=== PATIENT | male | born 1935 | race Caucasian/White ===

== ENCOUNTER 2019-03-21 09:24 | Inpatient (IN) | payer MEDICARE, SELFPAY ==
[2019-03-21] VITALS (9 sets, daily range): BP systolic 110–149; BP diastolic 49–76; PULSE 56–76; RESP 18–20; TEMP 36.7–37.4; O2SAT 94–100; BMI 37.0
--- NOTE | ~2019-03-21 | XR_ITS ---
EXAMINATION: XR barium swallow modified DATE: 03/23/2019 09:22 INDICATION: Dysphagia. TECHNIQUE: The patient was given barium-containing material of multiple consistencies to swallow by antonella rodriguez speech pathologist while I performed fluoroscopy. Dose-area product was 1.08 Gy-cm2. 1.4 minutes fluoroscopy time FINDINGS: Oral Stage: Premature spillage into the pharynx Pharyngeal Phase: Laryngeal penetration Aspiration Vallecular and piriform sinus residue Cervical/Esophageal Stage: Within functional limits IMPRESSION: Modified esophagram findings as above. Please refer to the [facility]. Reviewed, dictated and finalized at [facility]. Reviewed, dictated and finalized at location A. K OUT CASHIER IMPRESSION: Modified esophagram findings as above. Please refer to the speech t herapy report for specific recommendations.
--- NOTE | ~2019-03-21 | XR_ITS ---
EXAMINATION: XR fl Dobhoff insert/rad w img DATE: 03/24/2019 12:53 INDICATION: Dysphagia TECHNIQUE: A Dobbhoff type feeding tube was advanced into the duodenum utilizing intermittent fluoroscopy. Final image demonstrates the feeding tube in position with the weighted tip at junction of the second/thir d portions of the duodenum. The tube was flushed with 10 mL sterile saline and fixed to the nares wit h adhesive tape. A single fluoroscopic image was recorded. Fluoroscopy exposure time was 3.9 minutes. The DAP for this procedure was 18.607 Gycm2. There were no immediate complications. FINDINGS/IMPRESSION: Successful fluoroscopy-guided Dobbhoff feeding tube placement with distal tip in the duodenum. Reviewed, dictated and finalized at location A. RVISOR ASBESTOS REMOVAL
--- NOTE | ~2019-03-21 | XR_ITS ---
EXAMINATION: XR barium swallow modified DATE: 03/27/2019 13:28 INDICATION: Dysphagia. TECHNIQUE: The patient was given barium-containing material of multiple consistencies to swallow by t michael speech pathologist while I performed fluoroscopy. Fluoroscopy exposure time was 1.4 minutes. The n umber of fluoroscopy images saved to the PACS was 1. Dose-area product was 1.022 Gy-cm^2. FINDINGS: There was laryngeal penetration and aspiration. IMPRESSION: 1. Laryngeal penetration and aspiration. 2. Please refer to the speech therapy report for recommendations. Reviewed, dictated and finalized at location A. ICATION INTEGRATOR
--- NOTE | ~2019-03-21 | XR_ITS ---
XR chest 1V portable DATE: 03/22/2019 05:45 INDICATION: Cough. Hypoxia. TECHNIQUE: Portable AP chest on 03/22/2019 at 0527 hours COMPARISON: 03/21/2019 AP and lateral chest FINDINGS: Status post sternotomy. Heart size is normal. There is aortic calcification and mild unfold ing. There are bilateral pleural calcifications, especially prominent on the right. There is prominence of the minor fissure and pulmonary vasculature and pulmonary interstitium and int erval probably central and lower lung zone infiltrates since 03/21/2019, suggesting congestive changes . No pleural effusion or pneumothorax is evident. There is chronic right apical capping. Diffuse idiopathic skeletal hyperostosis of the thoracic spine. Degenerative changes are noted the ac romioclavicular and glenohumeral joints. IMPRESSION: Congestive changes, new since 03/21/2019 Reviewed, dictated and finalized at location A. LE END CHUCKING MACHINE OPERATOR
--- NOTE | ~2019-03-21 | XR_ITS ---
EXAMINATION: XR chest 2V DATE: 03/21/2019 09:55 INDICATION: Fever and cough TECHNIQUE: AP and lateral views of the chest are obtained. COMPARISON: 04/09/2018 FINDINGS: The lungs are free of acute opacities. There are chronic opacities of the right lung base a nd chronic pleural plaquing. There is no pleural effusion or pneumothorax. The cardiomediastinal silh ouette is normal. Median sternotomy wires and mediastinal surgical clips are seen, likely from prior coronary artery bypass grafting. IMPRESSION: 1. No acute cardiopulmonary abnormality. 2. Bilateral pleural plaques which may reflect prior asbestos exposure. Reviewed, dictated and finalized at location A. MIXER
--- NOTE | ~2019-03-21 | XR_ITS ---
XR chest 2V DATE: 03/23/2019 09:20 INDICATION: Hypoxia. Pneumonia. Aspiration. TECHNIQUE: AP and lateral views COMPARISON: 03/22/2019 portable upright AP chest FINDINGS: There are bilateral patchy infiltrates involving the mid and lower lung zones bilaterally, consistent with bilateral pneumonia and/or aspiration. Pulmonary vascularity appears within normal ra nge. No pleural effusion is evident. Heart size appears normal. Prominent pleural calcified plaques are noted. Status post sternotomy. IMPRESSION: Bilateral pulmonary infiltrates, increased since 03/22/2019 Reviewed, dictated and finalized at location A. GRADER
--- NOTE | 2019-03-21 09:32 | ECG_ITS ---
Measurements Intervals [place] Rate: 60 P: 40 MT: 292 QRS: -58 QRSD: 146 T: 22 QT: 413 QTc: 415 Interpretive Statements SINUS RHYTHM WITH FIRST DEGREE AV BLOCK INTRAVENTRICULAR CONDUCTION DELAY BORDERLINE R WAVE PROGRESSION, ANTERIOR LEADS ABNORMAL ECG Electronically Signed On 03-21-2019 11:08:14 GRAPHIC DESIGN INTERN by Jorge Bright D.O.
[2019-03-21 09:52] LABS: Basophils Percent Auto 0.2 % (0.2-1.2); Eosinophils Percent Auto 0.3 % (0-4.4); Hematocrit 37.1 % (42.0-52.0); Hemoglobin 11.7 g/dL (14.0-18.0); Immature Granulocyte Absolute 0.03 K/mm3 (0.00-0.031); Immature Granulocyte Percent A 0.3 % (0-0.5); Lymphocytes Absolute Auto 0.29 K/mm3 (0.9-3.2); Lymphocytes Percent Auto 2.6 % (18.3-44.2); Mean Corpuscular HGB Conc 31.5 g/dl (32-36); Mean Corpuscular Hemoglobin 31.3 pg (26-34); Mean Corpuscular Volume 99.2 fl (80-100); Mean Platelet Volume 12.3 fl (7.4-10.4); Monocytes Absolute Auto 0.7 K/mm3 (0.1-0.6); Monocytes Percent Auto 6.2 % (2.6-8.5); Neutrophils Absolute Auto 10.3 K/mm3 (1.3-6.7); Neutrophils Percent Auto 90.4 % (45.5-73.1); Platelet Count Result 106 k/mm3 (150-375); Red Blood Count 3.74 M/mm3 (4.6-6.20); Red Cell Distribution Width 13.5 % (11.5-14.5); White Blood Count 11.4 K/mm3 (4.5-10.0)
[2019-03-21 10:03] LABS: INR 1.2; Prothrombin Time 14.9 Seconds (11.1-14.7)
[2019-03-21 10:04] LABS: Partial Thromboplastin Time 32.6 SECONDS (22.3-36.8)
[2019-03-21 10:06] LABS: Lactic Acid Reflex 3.1 mmol/L (0.7-2.1)
[2019-03-21 10:07] LABS: Alanine Aminotransferase 18 U/L (4-50); Albumin Level 3.6 g/dL (3.5-5.1); Alkaline Phosphatase 85 U/L (38-126); Aspartate Amino Transferase 20 U/L (17-59); Bilirubin,Total 0.7 mg/dL (0.2-1.3); Blood Urea Nitrogen 22 mg/dL (9-20); CRP 7.7 mg/dL (<1.0); Calcium 8.7 mg/dL (8.4-10.2); Carbon Dioxide 25 mmol/L (22-30); Chloride 97 mmol/L (98-107); Estimated CRCL calculation 44 ml/min; Estimated Glomerular Filt Rate 53; Glucose 153 mg/dL (75-110); Potassium 4.5 mmol/L (3.4-5.0); Sodium 133 mmol/L (137-145)
[2019-03-21] MEDS: SODIUM CHLORIDE 0.9% IV 1,000 ML 999 ML IV CONT (10:25)
[2019-03-21 10:55] LABS: Add Urine Microscopic? YES; Appearance Urine Cloudy (Clear); Bacteria Urine 4+ /hpf; Bilirubin Urine Negative (Negative); Blood Urine 1+ (Negative); Color Urine Yellow (Yellow); Glucose Urine UA Negative (Negative); Ketones Urine Negative (Negative); Leukocyte Esterase Ur 2+ LEU/UL (Negative); Mucus Urine Rare /lpf; Nitrate Urine Negative (Negative); Protein Urine 2+ mg/dL (Negative); RBC Urine 0-2 /hpf (0-2); Specific Grav Ur 1.023 (1.001-1.035); Squamous Epithelial Cell Urine Rare /hpf (Few); Urobilinogen Urine Negative mg/dL (<2.0); WBC Urine 51-75 /hpf
--- NOTE | 2019-03-21 11:04 | WPDEDEXPGENP ---
HPI - General Ped General Chief complaint: Fever Stated complaint: fever, weakness Time Seen by Provider: 03/21/19 09:31 Source: patient Mode of arrival: ambulatory Limitations: no limitations Nursing Documentation: reviewed/agree History of Present Illness HPI narrative: Patient is an 83-year-old male who presents to emergency department for evaluation of generalized weakness with fever that began yesterday patient has had runny nose and cough per family which is productive of clear phlegm patient denies any vomiting diarrhea. Patient notes today feeling weak and unable to stand and ambulate. Patient denies any falling. Patient presents per private vehicle with family denying any pain. Patient notes that he feels dizzy and lightheaded with ambulation and activity Related Data Home Medications Medication Instructions Recorded Confirmed clopidogrel 75 mg PO DAILY 03/21/19 donepezil 10 mg PO DAILY 03/21/19 metoprolol tartrate 25 mg PO DAILY 03/21/19 quetiapine 25 mg PO DAILY 03/21/19 Allergies Allergy/AdvReac Type Severity Reaction Status Date / Time No Known Allergies Allergy Verified 03/21/19 09:40 Pediatric Review of Systems : Review of Systems: CONSTITUTIONAL: Denies chills, or sweats. EYES: Denies visual changes, redness, or discharge. ENT: Denies sore throat, or otalgia. CARDIOVASCULAR: Denies chest pain, or edema. RESPIRATORY: Denies dyspnea. GASTROINTESTINAL: Denies abdominal pain, nausea, vomiting, or diarrhea. GENITOURINARY: Denies dysuria or hematuria. SKIN: Denies rash or itching. MUSCULOSKELETAL: Denies back pain, joint pain, or myalgia. NEUROLOGIC: Denies headache, numbness PMFSH Past Medical History Medical History Hypertension Surgical History Surgical History Hx of CABG Social History Social History (Updated 03/21/19 @ 11:08 by Tye Hampton PA-C) Smoking status: Former smoker Gender identity (if verbalized by the patient): Male Pediatric Exam Narrative: Physical exam: GENERAL: Well-appearing, well-nourished, and in no acute distress. HEAD: Normocephalic, atraumatic. EYES: PERRLA and EOMI. ENT: Nares clear, no rhinorrhea or epistaxis. Mucous membranes moist. Oropharynx without tonsillar hypertrophy exudate or other lesions. NECK: Supple. No adenopathy or masses. CHEST: Clear to auscultation. No respiratory distress. Coarse breath sounds in the lung bases no wheezing HEART: Regular rate and rhythm. No murmur heard. Normal peripheral pulses. ABDOMEN: Soft, nontender, nondistended EXTREMITIES: Normal range of motion. No edema. SKIN: Warm, dry, no rash. NEURO: No focal deficits. Alert and oriented x3. Cranial nerves II through XII grossly intact PSYCH: Normal mood and affect. Course Course Emergency Course: Patient in the room aware of case findings treatment plan and diagnosis resting comfortably in the room with fluids and antibiotics given in the emergency department felt appropriate for inpatient therapy agreeing to stay in hospital Consultations Consultation #1: spoke with [facility] hospitalist who is agreed to accept the patient Date: 03/21/19 Time: 12:18 Vital Signs Vital signs: Vital Signs Temperature 99.3 F 03/21/19 09:35 Pulse Rate 62 03/21/19 09:35 Respiratory Rate 18 03/21/19 09:35 Blood Pressure 118/53 L 03/21/19 09:35 Pulse Oximetry 95 03/21/19 09:35 Temperature 99.3 F 03/21/19 09:35 Pulse Rate 57 L 03/21/19 10:22 Respiratory Rate 18 03/21/19 09:35 Blood Pressure 115/49 L 03/21/19 10:22 Pulse Oximetry 95 03/21/19 09:35 Medical Decision Making MDM Narrative Medical decision making narrative: Patient in the room aware of case findings treatment plan and diagnosis agreeing to stay in hospital as instructed hydrated given antibiotics in the emergency department with urinary tract infection felt to be th
[2019-03-21 12:51] LABS: Reflex Lactic Acid Yes or No Add Lactic
[2019-03-21] MEDS: LACTATED RINGERS 500 ML 999 ML IV CONT (13:03)
--- NOTE | 2019-03-21 13:29 | PCOTNOTE ---
Attempted to see for OT evaluation. Patient still in ER and not on the floor yet. Will continue to attempt.
--- NOTE | 2019-03-21 13:58 | PCPTNOTE ---
Attempted PT eval. Pt refused therapy,stating he was too weak to get up. Explained purpose/importance of therapy. Pt and family member refused therapy.
--- NOTE | 2019-03-21 13:58 | PCOTNOTE ---
OT evaluation attempted this PM. Pt adamantly refusing therapy at this time stating that he was just too weak to get up . Patient educated on benefits of getting out of bed and working with therapy, but continued to refuse. Pt agreeable to OT evaluation tomorrow in AM.
--- NOTE | 2019-03-21 14:00 | ADMGEN ---
This patient, Tommy Leyva, was admitted to Medical Room 254-01. Patient/family oriented to hospital policies and general routines including ID bracelet, bed and alarms, visiting hours, pain management, procedures, bathroom and other care routines, personal items, smoking policy, room service/diet, and visiting hours. Valuables list has been completed. Information on how to activate the Rapid Response Team has been discussed. Patient/Family are encouraged to report perceived risks to care and to ask questions if they do not understand what they are told or what they should do.
[2019-03-21 14:11] LABS: Lactic Acid 2.3 mmol/L (0.7-2.1)
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
[2019-03-21 16:20] LABS: Alveolar/Arterial O2 Gradient 143.9 mmHg; Base Excess ABG 1.5 mEq/l (+/-2.0); Carboxyhemoglobin 0.1 % THb (0-2.0); Fractional Inspired Oxygen 36 %; HCO3 ABG 26.2 mEq/l (22.0-26.0); Methemoglobin ABG 0.7 %THb (0-1.5); Oxygen Content ABG 16.3 %vol (16.0-22.0); Oxyhemoglobin 91.8 % THb (90.0-100.0); PCO2 ABG 41.4 mmHg (35.0-45.0); PO2 ABG 64.8 mmHg (80.0-100.0); Reduced Hemoglobin 7.4 %THb (0-5.0); Total Hemoglobin 12.6 g/dL (12.0-18.0); pH ABG 7.419 (7.350-7.450)
[2019-03-21 16:21] LABS: Device NASAL CANNULA; Modified Allen's Test Pass; Site Drawn RIGHT BRACHIAL
[2019-03-21] MEDS: LACTATED RINGERS 1,000 ML 100 ML IV CONT (17:28)
[2019-03-21 19:57] LABS: D Dimer 1.58 ug/mL (<0.48)
[2019-03-21 20:05] LABS: NT Pro B Type Natriuretic Pept 6830 PG/ML (5-100)
[2019-03-21] MEDS: GABAPENTIN 300 MG CAPSULE 600 MG PO (20:39)
[2019-03-21] MEDS: METOPROLOL TARTRATE 25 MG TABLET PO (20:39)
[2019-03-22] VITALS (12 sets, daily range): BP systolic 111–158; BP diastolic 48–57; PULSE 54–88; RESP 16–18; TEMP 36.2–37.2; O2SAT 91–98
[2019-03-22] MEDS: LACTATED RINGERS 1,000 ML 100 ML IV CONT (03:24)
[2019-03-22 05:44] LABS: Basophils Percent Auto 0.1 % (0.2-1.2); Hematocrit 34.4 % (42.0-52.0); Hemoglobin 10.9 g/dL (14.0-18.0); Immature Granulocyte Absolute 0.03 K/mm3 (0.00-0.031); Immature Granulocyte Percent A 0.4 % (0-0.5); Lymphocytes Absolute Auto 0.59 K/mm3 (0.9-3.2); Lymphocytes Percent Auto 8.5 % (18.3-44.2); Mean Corpuscular HGB Conc 31.7 g/dl (32-36); Mean Corpuscular Hemoglobin 31.4 pg (26-34); Mean Corpuscular Volume 99.1 fl (80-100); Mean Platelet Volume 12.3 fl (7.4-10.4); Monocytes Absolute Auto 0.6 K/mm3 (0.1-0.6); Monocytes Percent Auto 8.5 % (2.6-8.5); Neutrophils Absolute Auto 5.7 K/mm3 (1.3-6.7); Neutrophils Percent Auto 82.5 % (45.5-73.1); Platelet Count Result 94 k/mm3 (150-375); Red Blood Count 3.47 M/mm3 (4.6-6.20); Red Cell Distribution Width 13.5 % (11.5-14.5); White Blood Count 6.9 K/mm3 (4.5-10.0)
[2019-03-22 05:57] LABS: Blood Urea Nitrogen 20 mg/dL (9-20); Carbon Dioxide 29 mmol/L (22-30); Chloride 99 mmol/L (98-107); Estimated CRCL calculation 42 ml/min; Estimated Glomerular Filt Rate 58; Glucose 97 mg/dL (75-110); Potassium 4.5 mmol/L (3.4-5.0); Sodium 135 mmol/L (137-145)
[2019-03-22] MEDS: ATORVASTATIN 40 MG TABLET PO (09:50)
[2019-03-22] MEDS: GABAPENTIN 300 MG CAPSULE 600 MG PO ×2 (09:50→19:54)
[2019-03-22] MEDS: QUEtiapine FUMARATE 25 MG TABLET PO (09:50)
[2019-03-22] MEDS: LORATADINE 10 MG TABLET PO (09:51)
[2019-03-22] MEDS: DONEPEZIL HCL 10 MG TABLET PO (09:51)
[2019-03-22] MEDS: CLOPIDOGREL BISULFATE 75 MG TABLET PO (09:51)
[2019-03-22] MEDS: ASPIRIN 325 MG TABLET PO (09:51)
[2019-03-22] MEDS: AMIODARONE HCL 100 MG TABLET PO (09:52)
[2019-03-22] MEDS: METOPROLOL TARTRATE 25 MG TABLET PO ×2 (09:54→19:54)
--- NOTE | 2019-03-22 15:29 | PCOTNOTE ---
Attempted OT evaluation today x2. 1330 - Patient is sleeping and RN requested that we let him sleep as he is finally getting some rest for the first time . 1430 - Patient more awake and getting vitals taken. He is extremely fatigued, minimally responsive to sternal rub, and not following commands. RN aware. Will attempt tomorrow when patient is more alert and responsive.
--- NOTE | 2019-03-22 17:47 | PM.IMPN ---
Progress Note: A&P Assessment and Plan (1) Sepsis: Qualifiers: Sepsis type: sepsis due to unspecified organism Sepsis acute organ dysfunction status: with acute organ dysfunction Severe sepsis acute organ dysfunction type: acute respiratory failure Acute respiratory failure type: with hypoxia Severe sepsis shock status: without septic shock Qualified Code(s): A41.9 - Sepsis, unspecified organism; R65.20 - Severe sepsis without septic shock; J96.01 - Acute respiratory failure with hypoxia Code(s): A41.9 - Sepsis, unspecified organism Status: Acute Assessment and Plan: Present on admission with fever, leukocytosis, lactic acidosis in the setting of urinary tract infection and probably aspiration PNA. Lactic acid trending down. WBC normal now. IV hydration stopped. Cap refill good and BP stable. BCx NGTD. UCx growing GNB. (2) Respiratory failure with hypoxia: Qualifiers: Chronicity: acute on chronic Qualified Code(s): J96.21 - Acute and chronic respiratory failure with hypoxia Code(s): J96.91 - Respiratory failure, unspecified with hypoxia Status: Acute Assessment and Plan: Patient states he wears O2 at home. CXR on admission reviewed showing chronic findings with pleural plaques but repeat CXR (also reviewed) showing much more significant congestive changes. No other clinical evidence of fluid overload so suspect this is related to aspiration. Speech therapy notes reviewed. Was on 5L but able to come down to 3L. Will make NPO and check MBS. Add neb treatments. Check sputum. Continue to have head of bed elevated and initiate aspiration precautions. Continue Rocephin. Add Flagyl. Consider CHF. Check echo. (3) Urinary tract infection: Qualifiers: Urinary tract infection type: acute cystitis Hematuria presence: without hematuria Qualified Code(s): N30.00 - Acute cystitis without hematuria Code(s): N39.0 - Urinary tract infection, site not specified Status: Acute Assessment and Plan: UA noted. UCx positive for GNB. Continue ceftriaxone. Follow up on final culture result. (4) Dehydration: Code(s): E86.0 - Dehydration Status: Acute Assessment and Plan: Present on admission. Fluid hydrated. BUN and Cr normal. IV fluids off now. Continue to monitor. (5) Generalized weakness: Code(s): R53.1 - Weakness Status: Acute Assessment and Plan: Related to above. Start PT and OT. (6) Chronic anemia: Code(s): D64.9 - Anemia, unspecified Status: Acute Assessment and Plan: Patient with mild chronic anemia. Hgb 12 last year. Hgb here was 11.7 and has dropped to 10.9 this morning. Continue to follow. He also has a chronic thrombocytopenia that has worsened. Plt count 149K last year but 106K on admission and has dropped to 94K. Check B12. (7) Paroxysmal atrial fibrillation: Code(s): I48.0 - Paroxysmal atrial fibrillation Status: Acute Assessment and Plan: Patient currently in a sinus rhythm. Not on mcfp anticoagulation. Continue amiodarone. (8) Vivid dream: Code(s): R68.89 - Other general symptoms and signs Status: Acute Assessment and Plan: Patient reportedly having vivid and violent dreams. Continue Seroquel. Subjective Date/time seen: 03/22/19 17:47 Interval history: 83yo male with PAD, DM and prostate cancer here for sepsis. atient feels better today. Denies feeling SOB or having CP. No dysphagia symptoms. No n/v. Does wear O2 at home but he is not sure how much. Eating okay. Still drives. Uses a cane to walk. States he has lost 50# but unclear on time frame. Exam Narrative: Exam Narrative: Gen: thin male in [place] HEENT: Normocephalic, atraumatic. PERRL, EOMI. mmm Neck: stiff. limited ROM due OA Chest: wet cough. gurgling respirations when he was sleeping but able t
[2019-03-22] MEDS: IPRATROPIUM BR 0.02% INH SOLN 0.5 MG/2.5 ML VIAL INHALATION (19:35)
[2019-03-22] MEDS: ALBUTEROL SULFATE NEB 2.5 MG/0.5 ML INH 5 MG INHALATION (19:35)
[2019-03-22] MEDS: metroNIDAZOLE 500 MG/ISO 100ML 500 MG/100 ML BAG 100 MG IVPB (19:56)
[2019-03-23] VITALS (14 sets, daily range): BP systolic 126–158; BP diastolic 48–59; PULSE 60–89; RESP 16–18; TEMP 36.3–37.3; O2SAT 92–100
[2019-03-23] MEDS: metroNIDAZOLE 500 MG/ISO 100ML 500 MG/100 ML BAG 100 MG IVPB ×5 (00:12→23:57)
[2019-03-23] MEDS: IPRATROPIUM BR 0.02% INH SOLN 0.5 MG/2.5 ML VIAL INHALATION ×4 (02:54→20:08)
[2019-03-23] MEDS: ALBUTEROL SULFATE NEB 2.5 MG/0.5 ML INH 5 MG INHALATION ×4 (02:54→20:08)
[2019-03-23 06:10] LABS: Hematocrit 34.4 % (42.0-52.0); Hemoglobin 10.8 g/dL (14.0-18.0); Mean Corpuscular HGB Conc 31.4 g/dl (32-36); Mean Corpuscular Hemoglobin 31.1 pg (26-34); Mean Corpuscular Volume 99.1 fl (80-100); Mean Platelet Volume 12.6 fl (7.4-10.4); Platelet Count Result 90 k/mm3 (150-375); Red Blood Count 3.47 M/mm3 (4.6-6.20); Red Cell Distribution Width 13.4 % (11.5-14.5); White Blood Count 4.6 K/mm3 (4.5-10.0)
[2019-03-23 06:25] LABS: Blood Urea Nitrogen 21 mg/dL (9-20); Calcium 7.9 mg/dL (8.4-10.2); Carbon Dioxide 30 mmol/L (22-30); Chloride 96 mmol/L (98-107); Estimated CRCL calculation 42 ml/min; Estimated Glomerular Filt Rate 58; Glucose 92 mg/dL (75-110); Phosphorus 2.2 mg/dL (2.5-4.5); Potassium 4.1 mmol/L (3.4-5.0); Sodium 134 mmol/L (137-145)
[2019-03-23 07:25] LABS: Folic Acid 9.6 ng/mL (2.76->20)
[2019-03-23] MEDS: ASPIRIN 325 MG TABLET PO (08:02)
[2019-03-23] MEDS: LORATADINE 10 MG TABLET PO (08:02)
[2019-03-23] MEDS: ATORVASTATIN 40 MG TABLET PO (08:03)
[2019-03-23] MEDS: QUEtiapine FUMARATE 25 MG TABLET PO (08:03)
[2019-03-23] MEDS: GABAPENTIN 300 MG CAPSULE 600 MG PO (08:03)
[2019-03-23] MEDS: DONEPEZIL HCL 10 MG TABLET PO (08:03)
[2019-03-23] MEDS: CLOPIDOGREL BISULFATE 75 MG TABLET PO (08:03)
[2019-03-23] MEDS: AMIODARONE HCL 100 MG TABLET PO (08:05)
[2019-03-23] MEDS: METOPROLOL TARTRATE 25 MG TABLET PO (08:06)
--- NOTE | 2019-03-23 09:18 | PCOTNOTE ---
Per RN, pt off floor- will attempt again
--- NOTE | 2019-03-23 13:35 | PCSTNOTE ---
Modified Barium Swallow Evaluation This pt was seen for a modified barium swallow evaluation following a bedside swallow evaluation on 03/21/19. At that time, no signs or symptoms of aspiration were observed and an oral diet was recommended. The pt was given trials of thin and moderately thick liquid via spoon. Oral and oral preparatory phases were characterized by lack of bolus control as evidenced by premature spillage posterior. The pharyngeal swallow was absent, occurring only when the pt was reminded to swallow, and innefective even then. Material entered the airway past the level of the vocal folds and was not ejected despite the effort of coughing. A chin tuck maneuver was attempted, but the pt was unable to tuck his chin to his chest, rendering it ineffective. The evaluation was stopped after the pt continued to aspirate moderately thick liquids. It is recommended for the pt to continue NPO. Therapeteutic feedings with TAPE CUTTER only. Therapy should focus on the following: -effortful swallow -bolus control exercises -thermal/tactile stimulation
--- NOTE | 2019-03-23 13:36 | PM.IMPN ---
Progress Note: A&P Assessment and Plan (1) Sepsis: Qualifiers: Acute respiratory failure type: with hypoxia Sepsis acute organ dysfunction status: with acute organ dysfunction Sepsis type: sepsis due to unspecified organism Severe sepsis acute organ dysfunction type: acute respiratory failure Severe sepsis shock status: without septic shock Qualified Code(s): A41.9 - Sepsis, unspecified organism; R65.20 - Severe sepsis without septic shock; J96.01 - Acute respiratory failure with hypoxia Code(s): A41.9 - Sepsis, unspecified organism Status: Acute Assessment and Plan: Present on admission with fever, leukocytosis, lactic acidosis in the setting of urinary tract infection and aspiration PNA. Lactic acid trending down. WBC remaining normal. BCx NGTD. UCx as mentioned below. Wean O2 as tolerated. Continue nebulizer treatments. (2) Respiratory failure with hypoxia: Qualifiers: Chronicity: acute on chronic Qualified Code(s): J96.21 - Acute and chronic respiratory failure with hypoxia Code(s): J96.91 - Respiratory failure, unspecified with hypoxia Status: Acute Assessment and Plan: Patient states he wears O2 at home. CXR on admission reviewed showing chronic findings with pleural plaques but repeat CXR today reviewed showing bilateral pulmonary infiltrates. [place] related to aspiration. Currently NPO. Continue abx and neb treatments. (3) Aspiration pneumonia: Code(s): J69.0 - Pneumonitis due to inhalation of food and vomit Status: Acute Assessment and Plan: MBS showing the patient can not protect his airway. Not sure if the UTI made him weak leading to oropharangeal weakness resulting in aspiration or if he has been having for awhile. Long discussion with patient and family about options. Plan to place NGT for nutrition and for medications. Will need to be done under fluoroscopy due to his severe neck arthritis. Change meds to NG route. Continue Rocephin and Flagyl for now. Wean o2 to baseline. Continue nebs. Check sputum. Plan to repeat MBS when felt appropriate by ST. (4) Urinary tract infection: Qualifiers: Hematuria presence: without hematuria Urinary tract infection type: acute cystitis Qualified Code(s): N30.00 - Acute cystitis without hematuria Code(s): N39.0 - Urinary tract infection, site not specified Status: Acute Assessment and Plan: UA noted. UCx positive for EColi sensitive to ceftriaxone. Continue the same. (5) Dehydration: Code(s): E86.0 - Dehydration Status: Acute Assessment and Plan: Present on admission. Fluid hydrated. IVF resumed due to being NPO. Continue to monitor. (6) Generalized weakness: Code(s): R53.1 - Weakness Status: Acute Assessment and Plan: Related to above. Start PT and OT. (7) Chronic anemia: Code(s): D64.9 - Anemia, unspecified Status: Acute Assessment and Plan: Patient with mild chronic anemia. Hgb 12 last year. Hgb here was 11.7. Hgb dropped to 10.9 yesterday but stable today. Continue to follow. He also has a chronic thrombocytopenia that has worsened. Plt count 149K last year but 106K on admission and has dropped to 90K. B12 level 315. Will check MMA. (8) Paroxysmal atrial fibrillation: Code(s): I48.0 - Paroxysmal atrial fibrillation Status: Acute Assessment and Plan: Patient currently in a regular rhythm clinically. Not on correction anticoagulation. Continue amiodarone. (9) Vivid dream: Code(s): R68.89 - Other general symptoms and signs Status: Acute Assessment and Plan: Patient reportedly having vivid and violent dreams. Continue Seroquel. Subjective Date/time seen: 03/23/19 13:36 Interval history: 83yo male with PAD, DM and prostate cancer here for sepsis from PNA and UTI. Patient up to a chair. Jamie
--- NOTE | 2019-03-23 14:55 | PC.NURSE ---
Attempted to place 16 english nasogastric tube without success. Will reattempt placement of nasogastric tube with assistance of Charge Nurse Maria Esther Camargo.
[2019-03-23] MEDS: DEXTROSE 5%/0.9% SOD CHL 1,000 ML 75 ML IV CONT (15:33)
--- NOTE | 2019-03-23 15:46 | PC.NURSE ---
Attempted insertion of 16 ukrainian nasogastric tube with assistance of Maria Esther Camargo RN. Nasogastric tube insertion unsuccessful with patient's impaired swallowing. Left message with Dr. Lizama notifying him NG tube unable to be inserted successfully at this time. Awaiting call back or orders.
[2019-03-24] VITALS (14 sets, daily range): BP systolic 160–180; BP diastolic 53–75; PULSE 66–88; RESP 16–18; TEMP 37–37.2; O2SAT 90–99; BMI 32.8
[2019-03-24] MEDS: IPRATROPIUM BR 0.02% INH SOLN 0.5 MG/2.5 ML VIAL INHALATION ×4 (01:42→20:04)
[2019-03-24] MEDS: ALBUTEROL SULFATE NEB 2.5 MG/0.5 ML INH 5 MG INHALATION ×4 (01:43→20:04)
[2019-03-24 06:26] LABS: Hematocrit 34.1 % (42.0-52.0); Hemoglobin 10.7 g/dL (14.0-18.0); Mean Corpuscular HGB Conc 31.4 g/dl (32-36); Mean Corpuscular Hemoglobin 31.1 pg (26-34); Mean Corpuscular Volume 99.1 fl (80-100); Mean Platelet Volume 12.2 fl (7.4-10.4); Platelet Count Result 87 k/mm3 (150-375); Red Blood Count 3.44 M/mm3 (4.6-6.20); Red Cell Distribution Width 13.2 % (11.5-14.5)
[2019-03-24 06:39] LABS: Albumin Level 2.9 g/dL (3.5-5.1); Blood Urea Nitrogen 17 mg/dL (9-20); Calcium 7.8 mg/dL (8.4-10.2); Carbon Dioxide 31 mmol/L (22-30); Chloride 99 mmol/L (98-107); Estimated CRCL calculation 49 ml/min; Estimated Glomerular Filt Rate > 60; Glucose 109 mg/dL (75-110); Magnesium 2.1 mg/dL (1.6-2.3); Phosphorus 2.3 mg/dL (2.5-4.5); Potassium 3.7 mmol/L (3.4-5.0); Sodium 136 mmol/L (137-145)
[2019-03-24] MEDS: metroNIDAZOLE 500 MG/ISO 100ML 500 MG/100 ML BAG 100 MG IVPB ×3 (06:39→17:12)
[2019-03-24] MEDS: DEXTROSE 5%/0.9% SOD CHL 1,000 ML 75 ML IV CONT ×2 (06:39→22:38)
--- NOTE | 2019-03-24 10:16 | PCPTNOTE ---
Attempted to see patient for PT, however unable to see patient due to patient being out of room this date.
--- NOTE | 2019-03-24 10:38 | PC.NURSE ---
Patient off floor for dobhoff placement.
--- NOTE | 2019-03-24 10:39 | PC.NURSE ---
Patient's 0900 medications not administered on time due to meds being ordered for administration through NGT. Dr. Lizama notified. Received orders to administer medications when patient is back from dobhoff placement.
--- NOTE | 2019-03-24 10:52 | PC.NURSE ---
Patient return to floor. Spoke with surgical technologist who states he refused dobhoff placement. Will notify Dr. Lizama.
--- NOTE | 2019-03-24 11:55 | PC.NURSE ---
Patient did not receive 0900 PO meds due to NPO status and refusing Dobhoff at this time. Spoke with Dr. Lizama and received orders to hold meds at this time. Will continue to monitor patient.
--- NOTE | 2019-03-24 12:12 | PC.NURSE ---
Patient off floor to radiology per bed. He is currently agreeing to dobhoff placement.
--- NOTE | 2019-03-24 12:56 | PC.NURSE ---
Patient return from radiology.
--- NOTE | 2019-03-24 15:01 | PCOTNOTE ---
Attempted to see patient for OT tx this afternoon. Patient adamantly declined any/all activity stating, I'm not doing it. I'm too exhausted. Will continue to attempt.
--- NOTE | 2019-03-24 15:09 | PM.IMPN ---
Progress Note: A&P Assessment and Plan (1) Sepsis: Qualifiers: Acute respiratory failure type: with hypoxia Sepsis acute organ dysfunction status: with acute organ dysfunction Sepsis type: sepsis due to unspecified organism Severe sepsis acute organ dysfunction type: acute respiratory failure Severe sepsis shock status: without septic shock Qualified Code(s): A41.9 - Sepsis, unspecified organism; R65.20 - Severe sepsis without septic shock; J96.01 - Acute respiratory failure with hypoxia Code(s): A41.9 - Sepsis, unspecified organism Status: Acute Assessment and Plan: Present on admission with fever, leukocytosis, lactic acidosis in the setting of urinary tract infection and aspiration PNA. Lactic acid trending down. WBC remaining normal. BCx NGTD. UCx as mentioned below. Wean O2 as tolerated. Continue nebulizer treatments. (2) Respiratory failure with hypoxia: Qualifiers: Chronicity: acute on chronic Qualified Code(s): J96.21 - Acute and chronic respiratory failure with hypoxia Code(s): J96.91 - Respiratory failure, unspecified with hypoxia Status: Acute Assessment and Plan: Patient does not wear O2 at home per . CXR showing bilateral pulmonary infiltrates. [place] related to aspiration. Currently NPO. Continue abx and neb treatments. (3) Aspiration pneumonia: Code(s): J69.0 - Pneumonitis due to inhalation of food and vomit Status: Acute Assessment and Plan: MBS showing that material entered the airway past the level of the vocal folds and maneuvers were not helpful and thus the patient can not protect his airway. Not sure if the UTI made him weak leading to the dysphagia resulting in aspiration or if he has been having sx for awhile. Long discussion with patient and family about options yesterday and they agreed for NGT. Today, the patient refused the NGT placement. Had a long discussion again with the patient and about risks and benefits. Was told later by RN that the patient agreed to have NGT placed. Continue Rocephin and Flagyl for now. Wean O2 to baseline. Continue nebs. Check sputum. Plan to repeat MBS when felt appropriate by ST. 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 Meds changed to NG route. Dietary for tube feeding recommendations. (4) Urinary tract infection: Qualifiers: Hematuria presence: without hematuria Urinary tract infection type: acute cystitis Qualified Code(s): N30.00 - Acute cystitis without hematuria Code(s): N39.0 - Urinary tract infection, site not specified Status: Acute Assessment and Plan: UA noted. UCx positive for EColi sensitive to ceftriaxone. Continue the same. (5) Dehydration: Code(s): E86.0 - Dehydration Status: Acute Assessment and Plan: Present on admission. Fluid hydrated. IVF resumed due to being NPO. Stop IVF once on tube feedings. (6) Generalized weakness: Code(s): R53.1 - Weakness Status: Acute Assessment and Plan: Related to above. Continue PT and OT. (7) Chronic anemia: Code(s): D64.9 - Anemia, unspecified Status: Acute Assessment and Plan: Patient with mild chronic anemia. Hgb 12 last year. Hgb here was 11.7. Hgb dropped to 10 and remaining stable. Continue to follow. He also has a chronic thrombocytopenia that has worsened. Plt count 149K last year but 106K on admission and has dropped to 87K. B12 level 315. Will check MMA. Continue to follow. (8) Paroxysmal atrial fibrillation: Code(s): I48.0 - Paroxysmal atrial fibrillation Status: Acute Assessment and Plan: Patient currently in a regular rhythm clinically. Not on senior living anticoagulation. Continue amiodarone once NGT in place. (9) Vivid dream: Code(s): R68.89 - Other general symptoms and signs Status: Acute A
--- NOTE | 2019-03-24 19:13 | PC.NURSE ---
Patient pulled dobhoff out. He stated I was just pulling this thing off of my nose. Tried to phone hospitalist and no answer at this time 1909.
--- NOTE | 2019-03-24 19:52 | PC.NURSE ---
Pt is confused and pulled out NG tube. Called placed to Judy and explained to her that had pulled out his NG tube and that he is confused and does not understand what it is for. Informed her that I spoke with Rin and that she believes that other options need to be discussed such as Hospice or Peg placement. She stated that she could be here around 3pm tomorrow.
[2019-03-24] MEDS: METOPROLOL TARTRATE INJ 5 MG/5 ML VIAL IV PUSH (22:31)
[2019-03-25] VITALS (17 sets, daily range): BP systolic 170–179; BP diastolic 61–86; PULSE 64–88; RESP 16–22; TEMP 36.4–36.8; O2SAT 91–97
--- NOTE | 2019-03-25 | ECHO_ITS ---
Patient Info Name: Tommy Leyva Age: 83 years : 1935 Gender: Male Ht: 70 in Wt: 186 lbs BSA: 2.05 m2 HR: 75 bpm BP: 175 / 70 mmHg Heart Rhythm: Sinus Rhythm Technical Quality: Good Exam Date: 03/25/2019 11:11 AM Exam Location: [facility] Patient Status: Inpatient Admit Date: 03/21/2019 Staff Ordering Physician: Phillip Lizama MD Cast Associate: Edil Surseh RDCS Attending Provider: Phillip Lizama MD Exam Type: CA echo doppler color flow Study Info Indications I48.0 - Paroxysmal atrial fibrillation Complete two-dimensional, color flow and Doppler transthoracic echocardiogram is performed. Strain analysis performed. History/Risk Factors Afib; sepsis, CHF w/ BNP 6830, respiratory failure w/ hypoxia. Summary 1. The left ventricle is borderline enlarged with mild concentric left ventricular hypertrophy. The left ventricular systolic function overall is good, although there appears to be mild hypokinesis of the basal inferoseptal segment. Diastolic dysfunction, grade 2, is present. The calculated ejection fraction is 52%. Global longitudinal strain is-12%, which is moderately reduced, again consistent with systolic dysfunction. 2. Left atrial chamber dimension is moderately enlarged. 3. There is mild mitral valve regurgitation. 4. Dilated inferior vena cava with >50% collapse upon inspiration consistent with elevated right atrial pressure, 5 mmHg. Left Ventricle Left ventricular chamber dimension is mildly enlarged. Left ventricular systolic function is normal, estimated at Empty. There is mildly increased left ventricular wall thickness. Left ventricular septal wall motion is normal. The left ventricular diastolic function is grade II diastolic dysfunction. Global longitudinal strain is moderately elevated at 12 %. The left ventricle is borderline enlarged with mild concentric left ventricular hypertrophy. The left ventricular systolic function overall is good, although there appears to be mild hypokinesis of the basal inferoseptal segment. Diastolic dysfunction, grade 2, is present. The calculated ejection fraction is 52%. Global longitudinal strain is-12%, which is moderately reduced, again consistent with systolic dysfunction. Right Ventricle Right ventricular chamber dimension is normal. Right ventricular systolic function is normal. Left Atria Left atrial chamber dimension is moderately enlarged. Right Atria Right atrial chamber dimension is normal. Aortic Valve The aortic valve is trileaflet. There is no aortic valve sclerosis. There is no aortic valve stenosis. There is no aortic valve regurgitation. Pulmonic Valve The pulmonic valve is normal. There is no pulmonic valve stenosis. There is no pulmonic regurgitation. Mitral Valve The mitral valve has normal leaflets. There is no mitral valve stenosis. There is mild mitral valve regurgitation. Tricuspid Valve The tricuspid valve leaflets are normal. There is no significant tricuspid valve stenosis. There is no tricuspid valve regurgitation. No pulmonary hypertension, estimated pulmonary arterial systolic pressure is Empty. Pericardium/Pleural The pericardium appears normal. There is no pericardial effusion. Inferior Vena Cava Dilated inferior vena cava with >50% collapse upon inspiration consistent with elevated right atrial pressure, 5 mmHg. Aorta The aortic root size at the sinus of Valsalva is normal. The prox ascending aorta size is normal.
[2019-03-25] MEDS: metroNIDAZOLE 500 MG/ISO 100ML 500 MG/100 ML BAG 100 MG IVPB ×5 (00:07→23:29)
[2019-03-25] MEDS: ALBUTEROL SULFATE NEB 2.5 MG/0.5 ML INH 5 MG INHALATION ×4 (01:42→18:49)
[2019-03-25] MEDS: IPRATROPIUM BR 0.02% INH SOLN 0.5 MG/2.5 ML VIAL INHALATION ×4 (01:43→18:49)
[2019-03-25 05:37] LABS: Hematocrit 35.1 % (42.0-52.0); Hemoglobin 10.9 g/dL (14.0-18.0); Mean Corpuscular HGB Conc 31.1 g/dl (32-36); Mean Corpuscular Hemoglobin 30.7 pg (26-34); Mean Corpuscular Volume 98.9 fl (80-100); Mean Platelet Volume 12.3 fl (7.4-10.4); Platelet Count Result 100 k/mm3 (150-375); Red Blood Count 3.55 M/mm3 (4.6-6.20); Red Cell Distribution Width 13.2 % (11.5-14.5); White Blood Count 4.1 K/mm3 (4.5-10.0)
[2019-03-25 05:47] LABS: Blood Urea Nitrogen 12 mg/dL (9-20); Calcium 7.8 mg/dL (8.4-10.2); Carbon Dioxide 31 mmol/L (22-30); Chloride 105 mmol/L (98-107); Estimated CRCL calculation 60 ml/min; Estimated Glomerular Filt Rate > 60; Glucose 126 mg/dL (75-110); Potassium 3.6 mmol/L (3.4-5.0); Sodium 140 mmol/L (137-145)
[2019-03-25] MEDS: METOPROLOL TARTRATE INJ 5 MG/5 ML VIAL IV PUSH ×3 (10:03→20:44)
--- NOTE | 2019-03-25 10:06 | PCSTNOTE ---
Patient refused ST this AM, stating he had just finished exercise (with PT) and was just really tired. Verbal encouragement provided; however, patient continued to refuse.
[2019-03-25 12:18] LABS: Legionella pneumophila Ag Ur Not Detected (Not Detected)
--- NOTE | 2019-03-25 12:18 | PC.NURSE ---
No NG present. Tube feed flush not done.
--- NOTE | 2019-03-25 13:22 | PCDIET ---
Nutrition Follow-Up Complete: Swallowing Difficulties as related to Dysphagia as evidenced by failed MBS tolerate tube feedings to goal rate Goal: Unable to meet goal at this time. Continue with current goal. Pt current nutrition is Jevity 1.2 at 65ml/hr Nutrition recommendation: Agree Last recorded weight is 80.9 kg (down from84.2kg on assessment) Bowel Motility: Labs Reviewed:Glucose 126, Hct 35.1, Hgb 10.9 Meds Noted:Flagyl, Lipitor, Seroquel Additional Notes: Pt was tolerating EN of Jevity 1.2 at 40ml/hr via NG tube before pulling it out. Family is planning on discussing next steps with MD later today per RN. If family wishes to continue with EN, Jevity 1.2 with goal of 65ml/hr recommend. At goal, pt will receive 1716 kcals, 79g protein, and 1154ml of free water, meeting 100% of estimated nutrition needs. We will continue to monitor daily.
--- NOTE | 2019-03-25 14:05 | PCSTNOTE ---
Second attempt to see patient this afternoon. Patient working with nursing. No ST provided this date.
--- NOTE | 2019-03-25 14:57 | PM.IMPN ---
Progress Note: A&P Assessment and Plan (1) Sepsis: Qualifiers: Acute respiratory failure type: with hypoxia Sepsis acute organ dysfunction status: with acute organ dysfunction Sepsis type: sepsis due to unspecified organism Severe sepsis acute organ dysfunction type: acute respiratory failure Severe sepsis shock status: without septic shock Qualified Code(s): A41.9 - Sepsis, unspecified organism; R65.20 - Severe sepsis without septic shock; J96.01 - Acute respiratory failure with hypoxia Code(s): A41.9 - Sepsis, unspecified organism Status: Acute Assessment and Plan: Criteria met on admission. Result of UTI and pneumonia. Urine culture positive for E coli. Blood cultures negative today. Sputum culture pending. Continue treatment of pneumonia and UTI as noted below. I had long discussion with family today. Including discussion of code status. After our visit, family confirms patient is to be DNR with code status change. Family also discussing help patient wishes to proceed with aspiration issues. (2) Respiratory failure with hypoxia: Qualifiers: Chronicity: acute on chronic Qualified Code(s): J96.21 - Acute and chronic respiratory failure with hypoxia Code(s): J96.91 - Respiratory failure, unspecified with hypoxia Status: Acute Assessment and Plan: Result of aspiration pneumonia. Continue IV antibiotics as noted below. Continue nebulizer treatments. Still using 1 liter of oxygen by nasal cannula. (3) Aspiration pneumonia: Qualifiers: Aspiration pneumonia type: unspecified Laterality: bilateral Lung location: unspecified part of lung Qualified Code(s): J69.0 - Pneumonitis due to inhalation of food and vomit Code(s): J69.0 - Pneumonitis due to inhalation of food and vomit Status: Acute Assessment and Plan: MBS on 03/23/2019 with patient unable to protect his airway with aspiration noted. Attempt for NG tube under fluoroscopy yesterday was successful on 03/24/2019 but patient later pulled NG tube out. Currently on IV metronidazole and ceftriaxone. Had discussion with patient and family regarding failed MBS. Patient did refuse speech therapy this morning. Family to discuss with patient his exact wishes. He per currently does not wish to have NG tube placed. We did discuss possibility of PPN if he is willing to participate in therapies. Will continue to monitor for now. (4) Urinary tract infection: Qualifiers: Hematuria presence: without hematuria Urinary tract infection type: acute cystitis Qualified Code(s): N30.00 - Acute cystitis without hematuria Code(s): N39.0 - Urinary tract infection, site not specified Status: Acute Assessment and Plan: Urine culture positive for E coli. Will continue IV ceftriaxone as sensitive. (5) Dehydration: Code(s): E86.0 - Dehydration Status: Acute Assessment and Plan: Present on admission. Will continue IV fluids with patient NPO at present time. (6) Generalized weakness: Code(s): R53.1 - Weakness Status: Acute Assessment and Plan: Result of above noted issues. Will continue PT/ OT. (7) Chronic anemia: Code(s): D64.9 - Anemia, unspecified Status: Acute Assessment and Plan: Patient with mild chronic anemia. Hemoglobin 10.9 today and now remaining stable. Vitamin B12 and folate acceptable. Will monitor for now. (8) Thrombocytopenia: Code(s): D69.6 - Thrombocytopenia, unspecified Status: Acute Assessment and Plan: Platelets 100,000 today. Will continue monitor. (9) Paroxysmal atrial fibrillation: Code(s): I48.0 - Paroxysmal atrial fibrillation Status: Acute Assessment and Plan: Presently in current rhythm with rate controlled. Will continue to monitor on metoprolol. Have been unable to give amiodarone due to NPO status. Not on long-term anticoagul
[2019-03-25] MEDS: DEXTROSE 5%/0.9% SOD CHL 1,000 ML 75 ML IV CONT (15:10)
--- NOTE | 2019-03-25 16:33 | PC.NURSE ---
On 03/25/19, the student, Anoop Rome, provided care and completed [employer] documentation on this patient. I have reviewed the student's documentation and agree with the findings.
[2019-03-26] VITALS (17 sets, daily range): BP systolic 149–174; BP diastolic 65–88; PULSE 64–75; RESP 16–20; TEMP 36.2–36.4; O2SAT 92–95
[2019-03-26] MEDS: IPRATROPIUM BR 0.02% INH SOLN 0.5 MG/2.5 ML VIAL INHALATION ×4 (01:18→21:01)
[2019-03-26] MEDS: ALBUTEROL SULFATE NEB 2.5 MG/0.5 ML INH 5 MG INHALATION ×4 (01:19→21:01)
[2019-03-26] MEDS: METOPROLOL TARTRATE INJ 5 MG/5 ML VIAL IV PUSH ×4 (05:09→21:24)
[2019-03-26] MEDS: metroNIDAZOLE 500 MG/ISO 100ML 500 MG/100 ML BAG 100 MG IVPB ×4 (05:09→23:44)
[2019-03-26] MEDS: DEXTROSE 5%/0.9% SOD CHL 1,000 ML 75 ML IV CONT ×2 (05:37→23:44)
[2019-03-26 05:41] LABS: Hematocrit 34.9 % (42.0-52.0); Mean Corpuscular HGB Conc 31.5 g/dl (32-36); Mean Corpuscular Hemoglobin 30.6 pg (26-34); Mean Corpuscular Volume 97.2 fl (80-100); Mean Platelet Volume 12.1 fl (7.4-10.4); Platelet Count Result 133 k/mm3 (150-375); Red Blood Count 3.59 M/mm3 (4.6-6.20); Red Cell Distribution Width 13.2 % (11.5-14.5); White Blood Count 4.6 K/mm3 (4.5-10.0)
[2019-03-26 05:59] LABS: Blood Urea Nitrogen 12 mg/dL (9-20); Carbon Dioxide 29 mmol/L (22-30); Chloride 103 mmol/L (98-107); Estimated CRCL calculation 59 ml/min; Estimated Glomerular Filt Rate > 60; Glucose 122 mg/dL (75-110); Magnesium 2.2 mg/dL (1.6-2.3); Potassium 3.3 mmol/L (3.4-5.0); Sodium 140 mmol/L (137-145)
--- NOTE | 2019-03-26 13:20 | PCNFU ---
Nutrition Follow-Up Complete: Swallowing Difficulties as related to Dysphagia as evidenced by failed MBS tolerate tube feedings to goal rate Goal:limited progressing towards goal. Pt current nutrition is NPO. Nutrition recommendation: PEG of Jevity 1.2 goal rate at 65 ml/hr Last recorded weight is 80.9 kg. Bowel Motility:+BM Labs Reviewed:K 3.3, Glu 122 Meds Noted:Flagyl, Lopressor Additional Notes: Patient pulled NGT. Patient refusing to have NGT in again. MD speaking with family regarding care. If planning for aggressive care would recommend PEG placement of Jevity 1.2 at 65 ml/hr to meet caloric needs. Speech continues to work with patient on swallowing exercises. Will monitor every Sunday and Sunday
--- NOTE | 2019-03-26 16:14 | PM.IMPN ---
Progress Note: A&P Assessment and Plan (1) Sepsis: Qualifiers: Acute respiratory failure type: with hypoxia Sepsis acute organ dysfunction status: with acute organ dysfunction Sepsis type: sepsis due to unspecified organism Severe sepsis acute organ dysfunction type: acute respiratory failure Severe sepsis shock status: without septic shock Qualified Code(s): A41.9 - Sepsis, unspecified organism; R65.20 - Severe sepsis without septic shock; J96.01 - Acute respiratory failure with hypoxia Code(s): A41.9 - Sepsis, unspecified organism Status: Acute Assessment and Plan: Criteria met on admission. Result of UTI and pneumonia. Urine culture positive for E coli. Blood cultures negative thus far. Initial sputum culture negative. Second sputum culture pending. Continue treatment of pneumonia and UTI as noted below. Long discussion with family and patient yesterday regarding plan of care. Patient is DNR. Anticipate patient will need rehab at discharge. Continue PT/OT/ST. (2) Respiratory failure with hypoxia: Qualifiers: Chronicity: acute on chronic Qualified Code(s): J96.21 - Acute and chronic respiratory failure with hypoxia Code(s): J96.91 - Respiratory failure, unspecified with hypoxia Status: Acute Assessment and Plan: Result of aspiration pneumonia. Has now weaned off oxygen. Continue IV antibiotics as noted below. Continue nebulizer treatments. (3) Aspiration pneumonia: Qualifiers: Aspiration pneumonia type: unspecified Laterality: bilateral Lung location: unspecified part of lung Qualified Code(s): J69.0 - Pneumonitis due to inhalation of food and vomit Code(s): J69.0 - Pneumonitis due to inhalation of food and vomit Status: Acute Assessment and Plan: MBS on 03/23/2019 with patient unable to protect his airway with aspiration noted. Attempt for NG tube under fluoroscopy was successful on 03/24/2019 but patient later pulled NG tube out. Long discussion with family regarding plan of care yesterday. Patient does not want new NG tube in place. Today he tells me he does not want peripheral nutrition. Did participate in speech therapy today. Appears to be making some progress overall. Will continue IV metronidazole and ceftriaxone. Will see how he is doing tomorrow. If continues to make progress, may be able to repeat MBS and avoid other types of nutrition. If not enough progress, will need to at least consider PPN. Remains on IV fluids for now. (4) Urinary tract infection: Qualifiers: Hematuria presence: without hematuria Urinary tract infection type: acute cystitis Qualified Code(s): N30.00 - Acute cystitis without hematuria Code(s): N39.0 - Urinary tract infection, site not specified Status: Acute Assessment and Plan: Urine culture positive for E coli. Will continue IV ceftriaxone as sensitive. (5) Hypokalemia: Code(s): E87.6 - Hypokalemia Status: Acute Assessment and Plan: Potassium 3.3 today with IV replacement given. Will continue to monitor and replace as needed. (6) Dehydration: Code(s): E86.0 - Dehydration Status: Acute Assessment and Plan: Present on admission. Will continue IV fluids with patient NPO at present time. (7) Generalized weakness: Code(s): R53.1 - Weakness Status: Acute Assessment and Plan: Result of above noted issues. Will continue PT/ OT with patient doing well with therapy today. (8) Chronic anemia: Code(s): D64.9 - Anemia, unspecified Status: Acute Assessment and Plan: Patient with mild chronic anemia. Hemoglobin stable at 11.0 today. Vitamin B12 and folate acceptable. Will continue to monitor. (9) Thrombocytopenia: Code(s): D69.6 - Thrombocytopenia, unspecified Status: Acute Assessment and Plan: Platelets increasing up to 133,000 today. Will continu
[2019-03-27] VITALS (15 sets, daily range): BP systolic 149–179; BP diastolic 57–69; PULSE 62–80; RESP 16–20; TEMP 36.1–36.4; O2SAT 93–95
[2019-03-27] MEDS: ALBUTEROL SULFATE NEB 2.5 MG/0.5 ML INH 5 MG INHALATION ×4 (01:50→21:47)
[2019-03-27] MEDS: IPRATROPIUM BR 0.02% INH SOLN 0.5 MG/2.5 ML VIAL INHALATION ×4 (01:50→21:47)
[2019-03-27] MEDS: METOPROLOL TARTRATE INJ 5 MG/5 ML VIAL IV PUSH ×4 (04:02→21:44)
[2019-03-27 05:57] LABS: Hematocrit 35.6 % (42.0-52.0); Hemoglobin 11.2 g/dL (14.0-18.0); Mean Corpuscular HGB Conc 31.5 g/dl (32-36); Mean Corpuscular Hemoglobin 30.8 pg (26-34); Mean Corpuscular Volume 97.8 fl (80-100); Mean Platelet Volume 11.8 fl (7.4-10.4); Platelet Count Result 144 k/mm3 (150-375); Red Blood Count 3.64 M/mm3 (4.6-6.20); Red Cell Distribution Width 13.2 % (11.5-14.5); White Blood Count 5.5 K/mm3 (4.5-10.0)
[2019-03-27 06:12] LABS: Blood Urea Nitrogen 12 mg/dL (9-20); Calcium 7.9 mg/dL (8.4-10.2); Carbon Dioxide 26 mmol/L (22-30); Chloride 105 mmol/L (98-107); Estimated CRCL calculation 53 ml/min; Estimated Glomerular Filt Rate > 60; Glucose 132 mg/dL (75-110); Magnesium 2.1 mg/dL (1.6-2.3); Potassium 3.6 mmol/L (3.4-5.0); Sodium 141 mmol/L (137-145)
[2019-03-27] MEDS: metroNIDAZOLE 500 MG/ISO 100ML 500 MG/100 ML BAG 100 MG IVPB ×3 (06:20→17:11)
--- NOTE | 2019-03-27 12:54 | PCOTNOTE ---
The patient treatment was not able to be completed on 03/27/18. Will plan to continue treatment per plan of care.
--- NOTE | 2019-03-27 13:59 | PCSTNOTE ---
Please refer to the Modified Barium Swallow Evaluation in the EMR.
--- NOTE | 2019-03-27 14:57 | PM.IMPN ---
Progress Note: A&P Assessment and Plan (1) Dysphagia: Qualifiers: Dysphagia type: unspecified Qualified Code(s): R13.10 - Dysphagia, unspecified Code(s): R13.10 - Dysphagia, unspecified Status: Acute Assessment and Plan: Failed MBS on 03/23/2019 with patient unable to protect airway and aspiration noted. Has been receiving speech therapy. Attempt was made to have NG tube placed. He did have an NG tube placed under fluoroscopy on 03/24/2019 but later pulled out NG tube. I have had long conversations with patient and family since that time. Patient adamantly does not want NG tube or PEG tube. Repeatedly states he simply wants to eat. MBS was repeated today. Patient still not protecting airway an aspirating with recommendation for NPO status. I had conversation with patient after MBS as well as conversation with his daughter who is his POA by phone regarding options. Suspect this has been ongoing for some time prior to this admission. Daughter does mention patient has had previous pneumonia and has been noted to cough and have difficulty swallowing prior to this admission. I return to see the patient this evening shortly before 1700 with and daughter who is POA present. They have spoken to the patient. He understands the risks of eating including continued aspiration with further aspiration pneumonia, decline in status and possibility of . With understanding these risks, he declines all other options for nutritional support and wishes to proceed with oral feeding. Patient wishes to have regular diet, minced and moist. Advised should still protect airway as much as possible with sitting upright, chin tucks and no straws. Will continue speech therapy. Continue IV fluids for now. Continuing other therapies with plan for rehab at this point. Patient is DNR. (2) Aspiration pneumonia: Qualifiers: Aspiration pneumonia type: unspecified Laterality: bilateral Lung location: unspecified part of lung Qualified Code(s): J69.0 - Pneumonitis due to inhalation of food and vomit Code(s): J69.0 - Pneumonitis due to inhalation of food and vomit Status: Acute Assessment and Plan: Last chest x-ray on 03/23/2019 with bilateral infiltrates. Problems with dysphagia as noted above. Failed MBS on 03/23/2019 and again today 03/27/2019. Will continue to treat pneumonia with IV metronidazole and ceftriaxone. Continue to monitor. (3) Sepsis: Qualifiers: Acute respiratory failure type: with hypoxia Sepsis acute organ dysfunction status: with acute organ dysfunction Sepsis type: sepsis due to unspecified organism Severe sepsis acute organ dysfunction type: acute respiratory failure Severe sepsis shock status: without septic shock Qualified Code(s): A41.9 - Sepsis, unspecified organism; R65.20 - Severe sepsis without septic shock; J96.01 - Acute respiratory failure with hypoxia Code(s): A41.9 - Sepsis, unspecified organism Status: Acute Assessment and Plan: Criteria met on admission. Result of UTI and pneumonia. Urine culture positive for E coli. Blood cultures negative thus far. Initial sputum culture negative. Second sputum culture pending. Continue treatment of pneumonia and UTI as noted. Clinically has been improving. remains DNR. Plan for rehab at discharge. (4) Respiratory failure with hypoxia: Qualifiers: Chronicity: acute on chronic Qualified Code(s): J96.21 - Acute and chronic respiratory failure with hypoxia Code(s): J96.91 - Respiratory failure, unspecified with hypoxia Status: Acute Assessment and Plan: Result of aspiration pneumonia. Continue IV antibiotics as noted below. Continue nebulizer treatments. No longer requiring oxygen. (5) Urinary tract infection: Qualifiers: Hematuria presence: without hematuria Urinary tract infection type: acute cystitis Qualified Code(s): N30.00 - Acute cy
[2019-03-27] MEDS: DEXTROSE 5%/0.9% SOD CHL 1,000 ML 75 ML IV CONT (15:20)
[2019-03-28] VITALS (16 sets, daily range): BP systolic 110–173; BP diastolic 51–78; PULSE 63–89; RESP 12–20; TEMP 36.1–36.4; O2SAT 90–98
[2019-03-28] MEDS: metroNIDAZOLE 500 MG/ISO 100ML 500 MG/100 ML BAG 100 MG IVPB ×4 (01:39→18:51)
[2019-03-28] MEDS: ALBUTEROL SULFATE NEB 2.5 MG/0.5 ML INH 5 MG INHALATION ×4 (02:39→20:33)
[2019-03-28] MEDS: METOPROLOL TARTRATE INJ 5 MG/5 ML VIAL IV PUSH ×3 (05:30→16:27)
[2019-03-28 05:40] LABS: Hematocrit 34.5 % (42.0-52.0); Hemoglobin 10.9 g/dL (14.0-18.0); Mean Corpuscular HGB Conc 31.6 g/dl (32-36); Mean Platelet Volume 11.5 fl (7.4-10.4); Platelet Count Result 141 k/mm3 (150-375); Red Blood Count 3.52 M/mm3 (4.6-6.20); Red Cell Distribution Width 13.4 % (11.5-14.5); White Blood Count 5.4 K/mm3 (4.5-10.0)
[2019-03-28 05:47] LABS: Blood Urea Nitrogen 13 mg/dL (9-20); Calcium 7.9 mg/dL (8.4-10.2); Carbon Dioxide 26 mmol/L (22-30); Chloride 105 mmol/L (98-107); Estimated CRCL calculation 59 ml/min; Estimated Glomerular Filt Rate > 60; Glucose 115 mg/dL (75-110); Potassium 3.2 mmol/L (3.4-5.0); Sodium 139 mmol/L (137-145)
[2019-03-28] MEDS: DEXTROSE 5%/0.9% SOD CHL 1,000 ML 75 ML IV CONT (06:32)
[2019-03-28 08:45] LABS: Methylmalonic Acid 187 nmol/L (87-318)
[2019-03-28] MEDS: AMIODARONE HCL 100 MG TABLET BY MOUTH (09:04)
[2019-03-28] MEDS: ASPIRIN 325 MG TABLET BY MOUTH (09:05)
[2019-03-28] MEDS: ATORVASTATIN 40 MG TABLET BY MOUTH (09:05)
[2019-03-28] MEDS: CLOPIDOGREL BISULFATE 75 MG TABLET BY MOUTH (09:06)
[2019-03-28] MEDS: QUEtiapine FUMARATE 25 MG TABLET BY MOUTH (09:06)
[2019-03-28] MEDS: DONEPEZIL HCL 10 MG TABLET BY MOUTH (09:06)
[2019-03-28] MEDS: IPRATROPIUM BR 0.02% INH SOLN 0.5 MG/2.5 ML VIAL INHALATION ×3 (09:07→20:33)
[2019-03-28] MEDS: POTASSIUM CHLORIDE 20 MEQ TABLET 40 MEQ PO (09:11)
--- NOTE | 2019-03-28 13:23 | PCNFU ---
Nutrition Follow-Up Complete: Swallowing Difficulties as related to Dysphagia as evidenced by failed MBS tolerate tube feedings to goal rate Goal:limited progression towards goal. Pt current nutrition is Regular, level 7. Minced and Moist, Level 5. Nutrition recommendation:Agree Last recorded weight is 83.2 kg. Bowel Motility:+BM 03/25 Labs Reviewed: Glu 115,K 3.2,Hct 34.5 Meds Noted:Flagyl, Lopressor Additional Notes: Patient had re-peat MBS on 03/27-failed. Patient wishes to not have NGT placed for nutritional support. He is a DNR and understands the risks of eating including continued aspiration with further aspiration pneumonia. Patient intake has been at least 75% of meals. Monitoring: Will monitor every 7 days.
--- NOTE | 2019-03-28 13:24 | PM.IMPN ---
Progress Note: A&P Assessment and Plan (1) Dysphagia: Qualifiers: Dysphagia type: unspecified Qualified Code(s): R13.10 - Dysphagia, unspecified Code(s): R13.10 - Dysphagia, unspecified Status: Acute Assessment and Plan: Failed MBS on 03/23/2019 with patient unable to protect airway and aspiration noted. He did have an NG tube placed under fluoroscopy on 03/24/2019 but later pulled out NG tube. MBS repeated on 03/27/2019 with no change. I had multiple conversations with the patient and family regarding options. Patient adamantly not wanting NG tube or PEG tube. With the patient and family understanding the risks of eating including continued aspiration with further aspiration pneumonia, decline in status and possibility of , patient wished to proceed with eating regular diet, minced and moist. Advised should still protect airway as much as possible with sitting upright, chin tucks and no straws. Will continue speech therapy. Patient is currently DNR. Discontinue IV fluids today. Still looking at SNF placement. Hopefully will be able to discharge soon. (2) Aspiration pneumonia: Qualifiers: Aspiration pneumonia type: unspecified Laterality: bilateral Lung location: unspecified part of lung Qualified Code(s): J69.0 - Pneumonitis due to inhalation of food and vomit Code(s): J69.0 - Pneumonitis due to inhalation of food and vomit Status: Acute Assessment and Plan: Last chest x-ray on 03/23/2019 with bilateral infiltrates. Problems with dysphagia as noted above. Failed MBS on 03/23/2019 and again today 03/27/2019. Will continue to treat pneumonia with IV antibiotics but switch to IV cefepime with sputum culture now growing Pseudomonas. This will cover both Pseudomonas and E coli in urine. Continue to monitor. (3) Sepsis: Qualifiers: Acute respiratory failure type: with hypoxia Sepsis acute organ dysfunction status: with acute organ dysfunction Sepsis type: sepsis due to unspecified organism Severe sepsis acute organ dysfunction type: acute respiratory failure Severe sepsis shock status: without septic shock Qualified Code(s): A41.9 - Sepsis, unspecified organism; R65.20 - Severe sepsis without septic shock; J96.01 - Acute respiratory failure with hypoxia Code(s): A41.9 - Sepsis, unspecified organism Status: Acute Assessment and Plan: Criteria met on admission. Result of UTI and pneumonia. Urine culture positive for E coli. Blood cultures negative thus far. Initial sputum culture negative. Second sputum culture now growing Pseudomonas. Continue treatment of pneumonia and UTI as noted. Clinically has been improving. Remains DNR. Plan for rehab at discharge. (4) Respiratory failure with hypoxia: Qualifiers: Chronicity: acute on chronic Qualified Code(s): J96.21 - Acute and chronic respiratory failure with hypoxia Code(s): J96.91 - Respiratory failure, unspecified with hypoxia Status: Acute Assessment and Plan: Result of aspiration pneumonia. Continue IV antibiotics as noted. Continue nebulizer treatments. Not requiring oxygen. (5) Urinary tract infection: Qualifiers: Hematuria presence: without hematuria Urinary tract infection type: acute cystitis Qualified Code(s): N30.00 - Acute cystitis without hematuria Code(s): N39.0 - Urinary tract infection, site not specified Status: Acute Assessment and Plan: Urine culture positive for E coli. Has been treated with IV ceftriaxone but adjusting antibiotics with new sputum culture results. (6) Hypokalemia: Code(s): E87.6 - Hypokalemia Status: Acute Assessment and Plan: Potassium 3.2 today. Oral replacement given. Will continue to monitor and replace as needed. (7) Dehydration: Code(s): E86.0 - Dehydration Status: Acute Assessment and Plan: Resolved. Diet resumed as noted a
[2019-03-28] MEDS: METOPROLOL TARTRATE 25 MG TABLET PO (21:18)
[2019-03-29] VITALS (13 sets, daily range): BP systolic 135–157; BP diastolic 58–73; PULSE 55–67; RESP 16–18; TEMP 36.2–36.8; O2SAT 91–97
[2019-03-29 06:31] LABS: Hematocrit 35.1 % (42.0-52.0); Hemoglobin 11.1 g/dL (14.0-18.0); Mean Corpuscular HGB Conc 31.6 g/dl (32-36); Mean Corpuscular Hemoglobin 31.1 pg (26-34); Mean Corpuscular Volume 98.3 fl (80-100); Mean Platelet Volume 11.9 fl (7.4-10.4); Platelet Count Result 145 k/mm3 (150-375); Red Blood Count 3.57 M/mm3 (4.6-6.20); Red Cell Distribution Width 13.4 % (11.5-14.5); White Blood Count 7.2 K/mm3 (4.5-10.0)
[2019-03-29 06:39] LABS: Blood Urea Nitrogen 14 mg/dL (9-20); Calcium 7.7 mg/dL (8.4-10.2); Carbon Dioxide 26 mmol/L (22-30); Chloride 106 mmol/L (98-107); Estimated CRCL calculation 54 ml/min; Estimated Glomerular Filt Rate > 60; Glucose 108 mg/dL (75-110); Magnesium 1.9 mg/dL (1.6-2.3); Sodium 139 mmol/L (137-145)
[2019-03-29] MEDS: ALBUTEROL SULFATE NEB 2.5 MG/0.5 ML INH 5 MG INHALATION ×3 (09:01→21:31)
[2019-03-29] MEDS: IPRATROPIUM BR 0.02% INH SOLN 0.5 MG/2.5 ML VIAL INHALATION ×3 (09:02→21:32)
[2019-03-29] MEDS: ASPIRIN 325 MG TABLET BY MOUTH (09:19)
[2019-03-29] MEDS: AMIODARONE HCL 100 MG TABLET BY MOUTH (09:19)
[2019-03-29] MEDS: QUEtiapine FUMARATE 25 MG TABLET BY MOUTH (09:20)
[2019-03-29] MEDS: ATORVASTATIN 40 MG TABLET BY MOUTH (09:20)
[2019-03-29] MEDS: CLOPIDOGREL BISULFATE 75 MG TABLET BY MOUTH (09:20)
[2019-03-29] MEDS: DONEPEZIL HCL 10 MG TABLET BY MOUTH (09:20)
[2019-03-29] MEDS: METOPROLOL TARTRATE 25 MG TABLET PO ×2 (09:20→20:35)
--- NOTE | 2019-03-29 12:47 | PM.IMPN ---
Progress Note: A&P Assessment and Plan (1) Dysphagia: Qualifiers: Dysphagia type: unspecified Qualified Code(s): R13.10 - Dysphagia, unspecified Code(s): R13.10 - Dysphagia, unspecified Status: Acute Assessment and Plan: Failed MBS on 03/23/2019 with patient unable to protect airway and aspiration noted. He did have an NG tube placed under fluoroscopy on 03/24/2019 but later pulled out NG tube. MBS repeated on 03/27/2019 with no change. I had multiple conversations with the patient and family regarding options. Patient adamantly not wanting NG tube or PEG tube. With the patient and family understanding the risks of eating including continued aspiration with further aspiration pneumonia, decline in status and possibility of , patient wished to proceed with eating regular diet, minced and moist. Advised should still protect airway as much as possible with sitting upright, chin tucks and no straws. Continue minced and moist diet but will add moderate thickening per patient wishes. Remains DNR. Working on SNF placement. (2) Aspiration pneumonia: Qualifiers: Aspiration pneumonia type: unspecified Laterality: bilateral Lung location: unspecified part of lung Qualified Code(s): J69.0 - Pneumonitis due to inhalation of food and vomit Code(s): J69.0 - Pneumonitis due to inhalation of food and vomit Status: Acute Assessment and Plan: Last chest x-ray on 03/23/2019 with bilateral infiltrates. Problems with dysphagia as noted above. Failed MBS on 03/23/2019 and again today 03/27/2019. Will continue to treat pneumonia with IV cefepime with sputum culture now growing Pseudomonas sensitive to the cefepime. Based on sensitivities, can send out on oral antibiotics discharge. Will monitor. On room air. (3) Sepsis: Qualifiers: Acute respiratory failure type: with hypoxia Sepsis acute organ dysfunction status: with acute organ dysfunction Sepsis type: sepsis due to unspecified organism Severe sepsis acute organ dysfunction type: acute respiratory failure Severe sepsis shock status: without septic shock Qualified Code(s): A41.9 - Sepsis, unspecified organism; R65.20 - Severe sepsis without septic shock; J96.01 - Acute respiratory failure with hypoxia Code(s): A41.9 - Sepsis, unspecified organism Status: Acute Assessment and Plan: Criteria met on admission. Result of UTI and pneumonia. Urine culture positive for E coli. Blood cultures negative thus far. Initial sputum culture negative. Second sputum culture now growing Pseudomonas. Continue treatment of pneumonia and UTI as noted. Clinically improving. Remains DNR. Plan for rehab at discharge. (4) Respiratory failure with hypoxia: Qualifiers: Chronicity: acute on chronic Qualified Code(s): J96.21 - Acute and chronic respiratory failure with hypoxia Code(s): J96.91 - Respiratory failure, unspecified with hypoxia Status: Acute Assessment and Plan: Result of aspiration pneumonia. Continue IV antibiotics as noted. Continue nebulizer treatments. Not requiring oxygen. (5) Urinary tract infection: Qualifiers: Hematuria presence: without hematuria Urinary tract infection type: acute cystitis Qualified Code(s): N30.00 - Acute cystitis without hematuria Code(s): N39.0 - Urinary tract infection, site not specified Status: Acute Assessment and Plan: Urine culture positive for E coli. Completed 7 days treatment with IV ceftriaxone. Will repeat urine culture per family wishes. (6) Hypokalemia: Code(s): E87.6 - Hypokalemia Status: Acute Assessment and Plan: Potassium 4.0 today. Oral replacement given. Will continue to monitor and replace as needed. (7) Dehydration: Code(s): E86.0 - Dehydration Status: Acute Assessment and Plan: Resolved. Diet resumed as noted above. Off IV fluids. (8) Gen
--- NOTE | 2019-03-29 14:19 | PCOTNOTE ---
OT attempted to arouse patient at 14:20 x3 attempts. Pt. opened eyes on third trial, OT gave introduction and attempted to persuade pt. to complete some exercises while seated in the chair and pt. shook head no following and went back to deep sleep. Will attempt to complete treatment tomorrow.
[2019-03-30] VITALS (14 sets, daily range): BP systolic 141–162; BP diastolic 53–76; PULSE 52–80; RESP 14–18; TEMP 36–36.2; O2SAT 91–97
[2019-03-30] MEDS: ALBUTEROL SULFATE NEB 2.5 MG/0.5 ML INH 5 MG INHALATION ×4 (02:47→20:30)
[2019-03-30] MEDS: IPRATROPIUM BR 0.02% INH SOLN 0.5 MG/2.5 ML VIAL INHALATION ×4 (02:47→20:30)
[2019-03-30 06:20] LABS: Blood Urea Nitrogen 15 mg/dL (9-20); Carbon Dioxide 25 mmol/L (22-30); Chloride 104 mmol/L (98-107); Estimated CRCL calculation 60 ml/min; Estimated Glomerular Filt Rate > 60; Glucose 99 mg/dL (75-110); Magnesium 1.9 mg/dL (1.6-2.3); Sodium 136 mmol/L (137-145)
[2019-03-30] MEDS: AMIODARONE HCL 100 MG TABLET BY MOUTH (09:13)
[2019-03-30] MEDS: ATORVASTATIN 40 MG TABLET BY MOUTH (09:13)
[2019-03-30] MEDS: ASPIRIN 325 MG TABLET BY MOUTH (09:13)
[2019-03-30] MEDS: QUEtiapine FUMARATE 25 MG TABLET BY MOUTH (09:14)
[2019-03-30] MEDS: METOPROLOL TARTRATE 25 MG TABLET PO ×2 (09:14→20:43)
[2019-03-30] MEDS: DONEPEZIL HCL 10 MG TABLET BY MOUTH (09:14)
[2019-03-30] MEDS: CLOPIDOGREL BISULFATE 75 MG TABLET BY MOUTH (09:14)
--- NOTE | 2019-03-30 14:42 | PM.IMPN ---
Progress Note: A&P Assessment and Plan (1) Dysphagia: Qualifiers: Dysphagia type: unspecified Qualified Code(s): R13.10 - Dysphagia, unspecified Code(s): R13.10 - Dysphagia, unspecified Status: Acute Assessment and Plan: Failed MBS on 03/23/2019 with patient unable to protect airway and aspiration noted. He did have an NG tube placed under fluoroscopy on 03/24/2019 but later pulled out NG tube. MBS repeated on 03/27/2019 with no change. I had multiple conversations with the patient and family regarding options. Patient adamantly not wanting NG tube or PEG tube. With the patient and family understanding the risks of eating including continued aspiration with further aspiration pneumonia, decline in status and possibility of , patient wished to proceed with eating regular diet, minced and moist. Moderate thickening started on 03/29/2019 per patient request. Continue aspiration precautions. Remains DNR. Awaiting SNF placement. Continue PT/OT. (2) Aspiration pneumonia: Qualifiers: Aspiration pneumonia type: unspecified Laterality: bilateral Lung location: unspecified part of lung Qualified Code(s): J69.0 - Pneumonitis due to inhalation of food and vomit Code(s): J69.0 - Pneumonitis due to inhalation of food and vomit Status: Acute Assessment and Plan: Last chest x-ray on 03/23/2019 with bilateral infiltrates. Problems with dysphagia as noted above. Failed MBS on 03/23/2019 and again today 03/27/2019. Will continue to treat pneumonia with IV cefepime with sputum culture now growing Pseudomonas sensitive to the cefepime. Based on sensitivities, can transition to oral antibiotics at discharge. Will monitor. Remains on room air. (3) Sepsis: Qualifiers: Acute respiratory failure type: with hypoxia Sepsis acute organ dysfunction status: with acute organ dysfunction Sepsis type: sepsis due to unspecified organism Severe sepsis acute organ dysfunction type: acute respiratory failure Severe sepsis shock status: without septic shock Qualified Code(s): A41.9 - Sepsis, unspecified organism; R65.20 - Severe sepsis without septic shock; J96.01 - Acute respiratory failure with hypoxia Code(s): A41.9 - Sepsis, unspecified organism Status: Acute Assessment and Plan: Criteria met on admission. Result of UTI and pneumonia. Urine culture positive for E coli. Blood cultures negative thus far. Initial sputum culture negative. Second sputum culture now growing Pseudomonas. Continue treatment of pneumonia and UTI as noted. Clinically improving. Remains DNR. Plan for SNF at discharge. (4) Respiratory failure with hypoxia: Qualifiers: Chronicity: acute on chronic Qualified Code(s): J96.21 - Acute and chronic respiratory failure with hypoxia Code(s): J96.91 - Respiratory failure, unspecified with hypoxia Status: Acute Assessment and Plan: Result of aspiration pneumonia. Continue IV antibiotics as noted. Continue nebulizer treatments. Not requiring oxygen. (5) Urinary tract infection: Qualifiers: Hematuria presence: without hematuria Urinary tract infection type: acute cystitis Qualified Code(s): N30.00 - Acute cystitis without hematuria Code(s): N39.0 - Urinary tract infection, site not specified Status: Acute Assessment and Plan: Urine culture positive for E coli. Completed 7 days treatment with IV ceftriaxone. Repeat urine culture initiated per family wishes and currently pending. (6) Hypokalemia: Code(s): E87.6 - Hypokalemia Status: Acute Assessment and Plan: Potassium 4.0 today. Will continue to monitor and replace as needed. (7) Dehydration: Code(s): E86.0 - Dehydration Status: Acute Assessment and Plan: Resolved. Diet resumed as noted above. Off IV fluids. (8) Generalized weakness: Code(s): R53.1 - Weakness Sta
[2019-03-31] VITALS (12 sets, daily range): BP systolic 137–142; BP diastolic 53–78; PULSE 51–88; RESP 16–20; TEMP 35.9–37.1; O2SAT 94–100
[2019-03-31] MEDS: IPRATROPIUM BR 0.02% INH SOLN 0.5 MG/2.5 ML VIAL INHALATION ×3 (01:44→13:53)
[2019-03-31] MEDS: ALBUTEROL SULFATE NEB 2.5 MG/0.5 ML INH 5 MG INHALATION ×3 (01:44→13:54)
[2019-03-31 07:34] LABS: Hematocrit 39.4 % (42.0-52.0); Hemoglobin 12.4 g/dL (14.0-18.0); Immature Platelet Fraction Pct 7.9 % (0.9-11.2); Mean Corpuscular HGB Conc 31.5 g/dl (32-36); Mean Corpuscular Hemoglobin 30.8 pg (26-34); Mean Corpuscular Volume 97.8 fl (80-100); Mean Platelet Volume 12.1 fl (7.4-10.4); Platelet Count Result 134 k/mm3 (150-375); Red Blood Count 4.03 M/mm3 (4.6-6.20); Red Cell Distribution Width 13.2 % (11.5-14.5)
[2019-03-31 07:35] LABS: Blood Urea Nitrogen 14 mg/dL (9-20); Calcium 8.2 mg/dL (8.4-10.2); Carbon Dioxide 26 mmol/L (22-30); Chloride 103 mmol/L (98-107); Estimated CRCL calculation 60 ml/min; Estimated Glomerular Filt Rate > 60; Glucose 99 mg/dL (75-110); Magnesium 1.9 mg/dL (1.6-2.3); Potassium 4.1 mmol/L (3.4-5.0); Sodium 137 mmol/L (137-145)
--- NOTE | 2019-03-31 08:21 | PCOTNOTE ---
Attempted to see pt, pt was with nursing and eating breakfast.
[2019-03-31] MEDS: ASPIRIN 325 MG TABLET BY MOUTH (08:29)
[2019-03-31] MEDS: AMIODARONE HCL 100 MG TABLET BY MOUTH (08:29)
[2019-03-31] MEDS: DONEPEZIL HCL 10 MG TABLET BY MOUTH (08:30)
[2019-03-31] MEDS: QUEtiapine FUMARATE 25 MG TABLET BY MOUTH (08:30)
[2019-03-31] MEDS: ATORVASTATIN 40 MG TABLET BY MOUTH (08:30)
[2019-03-31] MEDS: METOPROLOL TARTRATE 25 MG TABLET PO (08:30)
[2019-03-31] MEDS: CLOPIDOGREL BISULFATE 75 MG TABLET BY MOUTH (08:30)
--- NOTE | 2019-03-31 13:27 | PM.IMPN ---
Progress Note: A&P Assessment and Plan (1) Dysphagia: Qualifiers: Dysphagia type: unspecified Qualified Code(s): R13.10 - Dysphagia, unspecified Code(s): R13.10 - Dysphagia, unspecified Status: Acute Assessment and Plan: Failed MBS on 03/23/2019 with patient unable to protect airway and aspiration noted. He did have an NG tube placed under fluoroscopy on 03/24/2019 but later pulled out NG tube. MBS repeated on 03/27/2019 with no change. I had multiple conversations with the patient and family regarding options. Patient adamantly not wanting NG tube or PEG tube. With the patient and family understanding the risks of eating including continued aspiration with further aspiration pneumonia, decline in status and possibility of , patient wished to proceed with eating regular diet, minced and moist. Moderate thickening started on 03/29/2019 per patient request. Continue aspiration precautions. Remains DNR. SNF not approved by insurance. Patient doing well enough with therapy and family/patient agreeable to going home with home health. Home health arranged. Will discharge home today. (2) Aspiration pneumonia: Qualifiers: Aspiration pneumonia type: unspecified Laterality: bilateral Lung location: unspecified part of lung Qualified Code(s): J69.0 - Pneumonitis due to inhalation of food and vomit Code(s): J69.0 - Pneumonitis due to inhalation of food and vomit Status: Acute Assessment and Plan: Last chest x-ray on 03/23/2019 with bilateral infiltrates. Problems with dysphagia as noted above. Failed MBS on 03/23/2019 and again today 03/27/2019. Will continue to treat pneumonia with IV cefepime while here with sputum culture now growing Pseudomonas. Based on sensitivities, can transition to oral ciprofloxacin to complete treatment. Will monitor. Remains on room air. (3) Sepsis: Qualifiers: Acute respiratory failure type: with hypoxia Sepsis acute organ dysfunction status: with acute organ dysfunction Sepsis type: sepsis due to unspecified organism Severe sepsis acute organ dysfunction type: acute respiratory failure Severe sepsis shock status: without septic shock Qualified Code(s): A41.9 - Sepsis, unspecified organism; R65.20 - Severe sepsis without septic shock; J96.01 - Acute respiratory failure with hypoxia Code(s): A41.9 - Sepsis, unspecified organism Status: Acute Assessment and Plan: Criteria met on admission. Result of UTI and pneumonia. Urine culture positive for E coli. Blood cultures negative thus far. Initial sputum culture negative. Second sputum culture now growing Pseudomonas. Continue treatment of pneumonia and UTI as noted. Clinically improved. Remains DNR. Plan now for home health. (4) Respiratory failure with hypoxia: Qualifiers: Chronicity: acute on chronic Qualified Code(s): J96.21 - Acute and chronic respiratory failure with hypoxia Code(s): J96.91 - Respiratory failure, unspecified with hypoxia Status: Acute Assessment and Plan: Result of aspiration pneumonia. Continue antibiotics as noted. Continue nebulizer treatments. No oxygen requirement. (5) Urinary tract infection: Qualifiers: Hematuria presence: without hematuria Urinary tract infection type: acute cystitis Qualified Code(s): N30.00 - Acute cystitis without hematuria Code(s): N39.0 - Urinary tract infection, site not specified Status: Acute Assessment and Plan: Urine culture positive for E coli. Completed 7 days treatment with IV ceftriaxone. Repeat urine culture negative. (6) Hypokalemia: Code(s): E87.6 - Hypokalemia Status: Acute Assessment and Plan: Potassium 4.1 today. (7) Dehydration: Code(s): E86.0 - Dehydration Status: Acute Assessment and Plan: Resolved. Diet resumed as noted above. Off IV fluids. (8) Generalized weakness:
--- NOTE | 2019-03-31 13:58 | PCCCNOTE ---
On 03/31/19, the student, [Shital See ], provided care and completed [facility] this patient. I have reviewed the student's documentation and agree with the findings.
--- NOTE | 2019-03-31 20:58 | PM.DS ---
DS: Diagnosis Admitting Diagnosis Admitting Diagnosis: Sepsis, unspecified organism Discharge Diagnosis (1) Dysphagia: Qualifiers: Dysphagia type: unspecified Qualified Code(s): R13.10 - Dysphagia, unspecified Code(s): R13.10 - Dysphagia, unspecified Status: Acute (2) Aspiration pneumonia: Qualifiers: Aspiration pneumonia type: unspecified Laterality: bilateral Lung location: unspecified part of lung Qualified Code(s): J69.0 - Pneumonitis due to inhalation of food and vomit Code(s): J69.0 - Pneumonitis due to inhalation of food and vomit Status: Acute (3) Sepsis: Qualifiers: Acute respiratory failure type: with hypoxia Sepsis acute organ dysfunction status: with acute organ dysfunction Sepsis type: sepsis due to unspecified organism Severe sepsis acute organ dysfunction type: acute respiratory failure Severe sepsis shock status: without septic shock Qualified Code(s): A41.9 - Sepsis, unspecified organism; R65.20 - Severe sepsis without septic shock; J96.01 - Acute respiratory failure with hypoxia Code(s): A41.9 - Sepsis, unspecified organism Status: Acute (4) Respiratory failure with hypoxia: Qualifiers: Chronicity: acute on chronic Qualified Code(s): J96.21 - Acute and chronic respiratory failure with hypoxia Code(s): J96.91 - Respiratory failure, unspecified with hypoxia Status: Acute (5) Urinary tract infection: Qualifiers: Hematuria presence: without hematuria Urinary tract infection type: acute cystitis Qualified Code(s): N30.00 - Acute cystitis without hematuria Code(s): N39.0 - Urinary tract infection, site not specified Status: Acute (6) Hypokalemia: Code(s): E87.6 - Hypokalemia Status: Acute (7) Dehydration: Code(s): E86.0 - Dehydration Status: Acute (8) Generalized weakness: Code(s): R53.1 - Weakness Status: Acute (9) Chronic anemia: Code(s): D64.9 - Anemia, unspecified Status: Acute (10) Thrombocytopenia: Code(s): D69.6 - Thrombocytopenia, unspecified Status: Acute (11) Paroxysmal atrial fibrillation: Code(s): I48.0 - Paroxysmal atrial fibrillation Status: Acute (12) Vivid dream: Code(s): R68.89 - Other general symptoms and signs Status: Acute DS: Summary Hospital Course Reason for hospitalization: Fever, weakness. Hospital Course: Date of Service of Discharge: March 31, 2019. History of Present Illness: Patient is an 83-year-old with known coronary artery disease, peripheral vascular disease, hypertension, chronic anemia and diet-controlled diabetes present to the emergency department for evaluation of fever and weakness. Patient is a fair historian with supplementation of information from his daughter and son-in-law. At baseline, he is able to ambulate unassisted, cooks and does some cleaning around the house. According to daughter he has never been diagnosed with dementia but has been repetitive in confused at times. He does also have vivid, violent dreams. In the past few days, he has developed rhinorrhea and cough productive of clear sputum. Patient was unable to get himself off the toilet the night prior to presentation due to weakness. Daughter and son-in-law had to come help him get up. On the day of presentation he was having difficulties standing up to ambulate with profound weakness and was therefore brought in for evaluation. He does have frequent urinary incontinence since prostatectomy. No recent hematuria or dysuria. He has had low-grade fever. In the emergency room, findings were consistent with sepsis, acute respiratory failure, pneumonia and UTI. He was therefore admitted for further evaluation and treatment. Course in Hospital: Admitted and started on IV metronidazole and ceftriaxone due to concern for possible aspiration. He was also started on IV fluids.
== END 2019-03-31 16:54 | disposition home health service (06) | DRG 871 ==
LOC: ANHED 12:28 → ANH2MED 12:35
PROVIDERS: Emergency Medicine Emergency Medical Services; Internal Medicine; Physician Assistant; Admitting Provider Family Medicine; Emergency Provider Emergency Medicine; PCP Internal Medicine; Visit Provider Hospitalist
DX: A41.9 Sepsis, unspecified organism (principal); J96.21 Acute and chronic respiratory failure with hypoxia; J69.0 Pneumonitis due to inhalation of food and vomit; N39.0 Urinary tract infection, site not specified; B96.20 Unspecified Escherichia coli [E. coli] as the cause of diseases classified elsewhere; R65.20 Severe sepsis without septic shock; B96.5 Pseudomonas (aeruginosa) (mallei) (pseudomallei) as the cause of diseases classified elsewhere; E87.6 Hypokalemia; E86.0 Dehydration; D64.9 Anemia, unspecified; E11.51 Type 2 diabetes mellitus with diabetic peripheral angiopathy without gangrene; D69.6 Thrombocytopenia, unspecified; I48.0 Paroxysmal atrial fibrillation; I25.10 Atherosclerotic heart disease of native coronary artery without angina pectoris; I73.9 Peripheral vascular disease, unspecified; I10 Essential (primary) hypertension; R32 Unspecified urinary incontinence; R13.10 Dysphagia, unspecified; K21.9 Gastro-esophageal reflux disease without esophagitis; E78.5 Hyperlipidemia, unspecified; E11.42 Type 2 diabetes mellitus with diabetic polyneuropathy; F41.8 Other specified anxiety disorders; M19.90 Unspecified osteoarthritis, unspecified site; Z85.46 Personal history of malignant neoplasm of prostate; Z87.891 Personal history of nicotine dependence; Z95.1 Presence of aortocoronary bypass graft; Z86.73 Personal history of transient ischemic attack (TIA), and cerebral infarction without residual deficits; Z96.652 Presence of left artificial knee joint; Z99.81 Dependence on supplemental oxygen
CPT/HCPCS: 36415; 36600; 43752; 51701; 71045; 71046; 80048; 80053; 80069; 81001; 82375; 82607; 82746; 82805; 83050; 83605; 83735; 83880; 83921; 84443; 85025; 85027; 85055; 85380; 85610; 85730; 86140; 87040; 87070; 87077; 87081; 87086; 87088; 87186; 87205; 87449; 87804; 92526; 92610; 92611; 93005; 93306; 94640; 96361; 96365; 97110; 97116; 97162; 97166; 97530; 97535; 99285; A9270; J0692; J0696; J3480; J7030; J7042; J7120

== ENCOUNTER 2019-05-06 09:46 | Outpatient (CLI) | payer MEDICARE, SELFPAY ==
--- NOTE | ~2019-05-06 | XR_ITS ---
MODIFIED ESOPHAGRAM HISTORY: Dysphagia TECHNIQUE: Modified barium esophagram was performed by speech pathologist under radiologist fluorosco pic guidance. This was recorded on tape. The exam was reviewed on 05/06/2019 11:06 CDT. The DAP for this procedure was 3.25 Gycm2. Fluoroscopy time is 4.4 minutes. FINDINGS: Lateral projection of the cervical spine demonstrates diffuse idiopathic skeletal hyperos tosis with large bulky ventral osteophytes at all cervical levels.. Oral stages within normal limits. There is mild laryngeal penetration with aspiration. Vallecular and piriform sinus residue is noted. Cervical/esophageal stages normal.. IMPRESSION: 1: Mild laryngeal penetration with aspiration. 2: Please refer to speech pathologist report for additional detail. Reviewed, dictated and finalized at location A.
--- NOTE | 2019-05-07 07:51 | STOPEVAL ---
MODIFIED BARIUM SWALLOW EVALUATION: Thank you for referring this patient to [facility]. Admitting Provider: Attending Provider: Huan SinghMD Margaret Referring Provider: SELWYN Outpatient Evaluation Start: 05/06/19 11:14 Freq: Status: Active Protocol: Document 05/06/19 11:15 BECHERERT (Rec: 05/06/19 11:25 BECHERERT [email or web address]) Therapy Assessment Status Assessment Status Assessment Status Evaluation Outpatient Past Medical History Neurological History Hx Cerebrovascular Accident (CVA) Yes: possibly during heart surgery Hx Other Neurological Disorders Yes: Neuropathy tio foot Cardiovascular History Hx Coronary Artery Bypass Graft Yes Hx Hypercholesterolemia Yes Hx Myocardial Infarction Yes Hx Vascular Surgery Yes Respiratory History Hx Pneumonia Yes: recurrent Hx Other Respiratory Disorders Yes: Poss asbestos Gastrointestinal History Hx Gastroesophageal Reflux Disease Yes Hx Hepatitis Yes: Hep C Genitourinary History Hx Prostatectomy Yes Musculoskeletal History Hx Arthritis Yes Hx Joint Replacement Yes: L knee Endocrine History Hx Diabetes Yes: borderline HEENT History Hx Tonsillectomy Yes Psychosocial History Hx Anxiety Yes Hx Depression Yes Pain History History of Any Previous or Ongoing No Significant History Instance of Pain Anesthesia History Hx Anesthesia Reactions No Significant History Other History Hx Cancer Yes: Prostate Pain Assessment Timing of Pain Assessment Timing of Pain Assessment Assessment Self Report Self Report Pain Level 0 Pain Scale Pain Scale Used Numeric (1 - 10) Pain Score Pain Score 0: Self Report Modified Barium Swallow Evaluation Recent Swallowing History Reports Dysphagia Yes Onset of Dysphagia pt and spouse are unsure History of Dysphagia Yes Duration of Dysphagia possibly years History of Related Medical Diagnosis CVA History of Pneumonia Yes Reported Difficult Consistencies Unable to Identify Intake Method Prior to Swallow Oral Evaluation Diet Prior to Swallow Evaluation Regular, Level 7 Liquid Consistency Prior to Swallow Thin (0) Evaluation Consistency Mildly Thick Uncontrolled 1 Method of Presentation Cup Oral Preparatory Symptoms Within Functional Limits Oral Phase Symptoms Within Functional Limits Pharyngeal Phase Symptoms Laryngeal Penetration,Reduced Laryngeal Elevation Severity of Vallecular Residue None - 0% No Residue Severity of Pyriform Sinus Residue None - 0% No Residue
== END 2019-05-06 09:47 | disposition home or self-care (01) ==
LOC: ANHIMG 09:48
PROVIDERS: PCP Internal Medicine; Visit Provider Internal Medicine
DX: R13.10 Dysphagia, unspecified (principal)
CPT/HCPCS: 92611

== ENCOUNTER 2021-05-21 08:38 | Emergency (ER) | payer MEDICARE, SELFPAY ==
--- NOTE | ~2021-05-21 | XR_ITS ---
EXAMINATION: XR chest 2V DATE: 05/21/2021 09:30 INDICATION: Lethargic with increasing weakness TECHNIQUE: frontal view of the chest was obtained. COMPARISON: Chest radiograph dated 03/23/2019 and 07/25/2017 FINDINGS: Opacities in the right mid and lower lung zones due to calcified pleural plaques which appear without significant change since 07/25/2017. Chronic right apical scarring. There are also few scattered smal l calcified nodules in the right lung consistent with old granulomatous disease. Left lung is clear. No definitively new airspace opacities, pulmonary edema or pleural effusion. Heart size is normal. Me talat sternotomy wires and mediastinal surgical clips are seen, likely from prior coronary artery bypa ss grafting. IMPRESSION: 1. Stable appearance of chronic calcified pleural plaques in the right mid and lower lung which sugge sts sequela of prior exudative effusion. Reviewed, dictated and finalized at location A. IMPRESSION: 1. Stable appearance of chronic calcified pleural plaques in the right mid and lower lung which suggests sequela of prior exudative effusion.
--- NOTE | ~2021-05-21 | CT_ITS ---
EXAMINATION: CT brain wo con DATE: 05/21/2021 10:02 INDICATION: Weakness TECHNIQUE: Computed tomography (CT) of the head was performed without intravenous contrast. Sagittal and coronal reconstructions were performed. The mA was adjusted according to patient size. Iterative reconstruction technique was employed. The dose-length product was 832.33 mGy-cm. COMPARISON: head CT dated 04/09/2018 FINDINGS: No acute intracranial hemorrhage, acute infarction or abnormal extra axial fluid collection. Unchanged small region of encephalomalacia at the left occipital lobe consistent with chronic infarct . Additional unchanged small old lacunar infarct at the posterior right lentiform nucleus. There is m ild scattered white matter hypoattenuation consistent with chronic small vessel ischemic disease. Sym metric prominence of the sulci, ventricles and subarachnoid spaces overlying the convexities consiste nt with moderate age-appropriate diffuse cerebral volume loss. No mass/mass effect. Changes of left i ntraocular lens replacement. Paranasal sinuses are clear. Bilateral mastoids are hypopneumatized with chronic bilateral mastoid effusions. IMPRESSION: 1. [No acute intracranial process. 2. Small old infarcts at the right lentiform nucleus and left occipital lobe. 3. Age-related changes including moderate diffuse cortical atrophy and mild scattered nonspecific whi te matter changes consistent with chronic small vessel ischemic disease. Reviewed, dictated and finalized at location A. IMPRESSION: 1. [No acute intracranial process. 2. Small old infarcts at the right lentiform nucleus and left occipital lobe. 3. Age-related changes including moderate diffuse cortical atrophy and mild sca ttered nonspecific white matter changes consistent with chronic small vessel is chemic disease.
[2021-05-21 08:37] VITALS: BP 140/66; PULSE 67; RESP 16; TEMP 36.9; O2SAT 98
--- NOTE | 2021-05-21 08:44 | ECG_ITS ---
Measurements Intervals [place] Rate: 60 P: 41 AK: 279 QRS: -65 QRSD: 137 T: 22 QT: 498 QTc: 499 Interpretive Statements SINUS RHYTHM WITH FIRST DEGREE AV BLOCK INTRAVENTRICULAR CONDUCTION DELAY [130+ ms QRS DURATION] COMPARED TO ECG 03/21/2019 09:36:46 NO SIGNIFICANT CHANGES Electronically Signed On 05-21-2021 13:20:43 CDT by Romain Hernandez M.D.
[2021-05-21 09:03] LABS: Basophils Percent Auto 0.1 % (0.2-1.2); Hematocrit 38.2 % (42.0-52.0); Hemoglobin 12.6 g/dL (14.0-18.0); Immature Granulocyte Absolute 0.02 K/mm3 (0.00-0.031); Immature Granulocyte Percent A 0.3 % (0-0.5); Lymphocytes Absolute Auto 0.24 K/mm3 (0.9-3.2); Lymphocytes Percent Auto 3.1 % (18.3-44.2); Mean Corpuscular Hemoglobin 31.4 pg (26-34); Mean Corpuscular Volume 95.3 fl (80-100); Mean Platelet Volume 12.6 fl (7.4-10.4); Monocytes Absolute Auto 0.8 K/mm3 (0.1-0.6); Monocytes Percent Auto 9.8 % (2.6-8.5); Neutrophils Absolute Auto 6.6 K/mm3 (1.3-6.7); Neutrophils Percent Auto 86.7 % (45.5-73.1); Platelet Count Result 84 k/mm3 (150-375); Red Blood Count 4.01 M/mm3 (4.6-6.20); Red Cell Distribution Width 13.4 % (11.5-14.5); White Blood Count 7.6 K/mm3 (4.5-10.0)
[2021-05-21 09:15] LABS: Lactic Acid Reflex 1.4 mmol/L (0.7-2.1)
[2021-05-21 09:16] LABS: Alanine Aminotransferase 16 U/L (4-50); Albumin Level 3.8 g/dL (3.5-5.1); Alkaline Phosphatase 121 U/L (38-126); Anion Gap 8 mmol/L (8-16); Aspartate Amino Transferase 29 U/L (17-59); Bilirubin,Total 0.9 mg/dL (0.2-1.3); Blood Urea Nitrogen 21 mg/dL (9-20); Calcium 8.4 mg/dL (8.4-10.2); Carbon Dioxide 28 mmol/L (22-30); Chloride 96 mmol/L (98-107); Estimated CRCL calculation 41 ml/min; Estimated Glomerular Filt Rate 53; Glucose 123 mg/dL (65-110); Sodium 132 mmol/L (137-145)
--- NOTE | 2021-05-21 09:19 | ED.GENADULT ---
HPI - General Adult General Chief complaint: Weakness Stated complaint: lethargy Time Seen by Provider: 05/21/21 09:04 Source: patient Mode of arrival: ambulatory Limitations: no limitations History of Present Illness HPI narrative: 85 year old male presents today with complaints of being off balance. Patient denies dizziness or vertigo like symptoms. States he is able to stand with his walker but unable to walk. He says he gets of balance and is afraid he will fall. Daughter at bedside. Daughter is currently staying with her parents. She is at a loss for what is going one. She also says he was able to take a few steps but this morning he won't. Jacqui had previously had P was doing well but when he stopped he has been less active. Denies dizziness, chest pain, sob, weakness, urinary symptoms, confusion, cough, runny nose, sore throat, or fevers. Related Data Home Medications Medication Instructions Recorded Confirmed amiodarone 100 mg PO DAILY 03/21/19 03/21/19 aspirin 325 mg PO DAILY 03/21/19 03/21/19 atorvastatin 40 mg PO DAILY 03/21/19 03/21/19 cetirizine [Zyrtec] 10 mg PO DAILY 03/21/19 03/21/19 clopidogrel 75 mg PO DAILY 03/21/19 03/21/19 donepezil 10 mg PO DAILY 03/21/19 03/21/19 gabapentin 600 mg PO BID 03/21/19 03/21/19 metoprolol tartrate 25 mg PO BID 03/21/19 03/21/19 quetiapine 25 mg PO DAILY 03/21/19 03/21/19 Allergies Allergy/AdvReac Type Severity Reaction Status Date / Time No Known Allergies Allergy Verified 03/21/19 09:40 Review of Systems Review of Systems: CONSTITUTIONAL: Denies fever, chills, or sweats. EYES: Denies visual changes, redness, or discharge. ENT: Denies rhinorrhea, congestion, sore throat, or otalgia. CARDIOVASCULAR: Denies chest pain, palpitations, or edema. RESPIRATORY: Denies cough or dyspnea. GASTROINTESTINAL: Denies abdominal pain, nausea, vomiting, or diarrhea. GENITOURINARY: Denies dysuria or hematuria. SKIN: Denies rash or itching. MUSCULOSKELETAL: Denies back pain, joint pain, or myalgia. NEUROLOGIC: Feels off balance. Denies headache, numbness, dizziness, or weakness. PSYCHIATRIC: Denies anxiety or depression. [facility] Past Medical History Medical History Asbestosis With chronic plaquing noted on chest x-ray. Chronic anemia With chronic mild thrombocytopenia as well. 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 No residual deficits. Depression with anxiety Diet-controlled diabetes mellitus Hemoglobin A1c was 5.4 in June 2017. GERD (gastroesophageal reflux disease) Hyperlipidemia Hypertension Neuropathy Osteoarthritis Paroxysmal atrial fibrillation Peripheral vascular disease With balloon angioplasty to popliteal artery above the right knee in September [address] Gamble. Prostate cancer Vivid dream Apparently this is been ongoing for many decades, and daughter describes that he has ?violent and vivid dreams.? Surgical History Surgical History Status post four vessel coronary artery bypass May [address] Guerrero at [facility]. Status post left knee replacement Status post prostatectomy Status post tonsillectomy Family History Family History Father Alcoholism Congestive heart failure Social History Social History (Updated 03/21/19 @ 19:12 by Rin Snider PA-C) Social History: Mr. Leyva is and lives in [place] with his . 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 His daughter, Brittani, is his power of senior trial attorney. He is listed as a full code. He smoked 2 packs of cigarettes per day for about 15 years and quit 1973. He has not drank since 1998. Gender identity (if verbalized by the patient): Male Spiritual care concerns: No Agree to blood products: Yes Exam Narrativ
[2021-05-21 09:40] VITALS: BP 129/60; PULSE 62; RESP 16; O2SAT 99
[2021-05-21 09:57] LABS: Add Urine Microscopic? YES; Appearance Urine Clear (Clear); Bilirubin Urine Negative (Negative); Blood Urine 1+ (Negative); Color Urine Yellow (Yellow); Glucose Urine UA Negative (Negative); Ketones Urine Negative (Negative); Leukocyte Esterase Ur Negative LEU/UL (Negative); Nitrate Urine Negative (Negative); Protein Urine 2+ mg/dL (Negative); RBC Urine 0-2 /hpf (0-2); Specific Grav Ur 1.014 (1.001-1.035); Squamous Epithelial Cell Urine Rare /hpf (Few); Urobilinogen Urine Negative mg/dL (<2.0); WBC Urine 0-3 /hpf
[2021-05-21 10:00] VITALS: BP 133/58; PULSE 62; RESP 20; O2SAT 100
[2021-05-21] MEDS: SODIUM CHLORIDE 0.9% IV 500 ML 999 ML IV CONT (10:08)
[2021-05-21 11:15] VITALS: BP 154/64; PULSE 58; RESP 16; O2SAT 100
--- NOTE | 2021-05-21 11:43 | PC.NURSE ---
pt was able to walk with standby assist and walker aprox 30 feet w/o complaint of dizziness or being unsteady.
[2021-05-21 13:05] VITALS: BP 127/62; PULSE 60; RESP 98; O2SAT 100
== END 2021-05-21 13:07 | disposition home or self-care (01) ==
PROVIDERS: Emergency Medicine; Emergency Provider Nurse Practitioner Family; PCP Internal Medicine
DX: E86.0 Dehydration (principal); J61 Pneumoconiosis due to asbestos and other mineral fibers; E78.5 Hyperlipidemia, unspecified; I10 Essential (primary) hypertension; E11.40 Type 2 diabetes mellitus with diabetic neuropathy, unspecified; E11.51 Type 2 diabetes mellitus with diabetic peripheral angiopathy without gangrene; I48.0 Paroxysmal atrial fibrillation; D64.9 Anemia, unspecified; D69.6 Thrombocytopenia, unspecified; K21.9 Gastro-esophageal reflux disease without esophagitis; M19.90 Unspecified osteoarthritis, unspecified site; Z85.46 Personal history of malignant neoplasm of prostate; Z86.73 Personal history of transient ischemic attack (TIA), and cerebral infarction without residual deficits; Z79.82 Long term (current) use of aspirin; Z90.79 Acquired absence of other genital organ(s); Z96.652 Presence of left artificial knee joint; Z95.1 Presence of aortocoronary bypass graft; Z87.891 Personal history of nicotine dependence
CPT/HCPCS: 36415; 51701; 70450; 71046; 80053; 81001; 83605; 85025; 93005; 96360; 99284; J7040

== ENCOUNTER 2021-05-22 19:00 | Inpatient (IN) | payer MEDICARE, SELFPAY ==
[2021-05-22] VITALS (7 sets, daily range): BP systolic 126–142; BP diastolic 51–80; PULSE 70–75; RESP 14–20; TEMP 36.2–36.3; O2SAT 92–97
--- NOTE | ~2021-05-22 | XR_ITS ---
EXAMINATION: XR chest 1V portable EXAM DATE: 05/25/2021 10:04 INDICATION: Aspiration . Pneumonia. TECHNIQUE: Portable AP frontal chest x-ray was obtained. Comparison is made to prior examination from 05/22/2021, 05/21/2021, 03/23/2019. FINDINGS: Compared to several days ago, there has been continued progression in the left mid and lowe r lung zone airspace disease, could be pneumonia, or aspiration pneumonia given history provided. Pro bably also some amount of pneumonia in the right mid and lower lung zone, although this is less appar ent because of the chronic pleural plaques and airspace disease. No pneumothorax or pleural effusion. Cardiomediastinal silhouette is normal. There are no osseous abnormalities identified. Sternotomy wi res are present without findings to suggest sternal dehiscence. IMPRESSION: Progression of multi segmental bibasilar airspace disease likely pneumonia or aspiration pneumonia. Reviewed, dictated and finalized at location B. IMPRESSION: Progression of multi segmental bibasilar airspace disease likely p neumonia or aspiration pneumonia.
--- NOTE | ~2021-05-22 | XR_ITS ---
XR chest 1V portable DATE: 05/27/2021 13:11 INDICATION: Pneumonia TECHNIQUE: Portable AP chest on 05/27/2021 at 1305 hours COMPARISON: 05/25/2021 portable AP chest at 0956 hours FINDINGS: Bilateral pleural calcifications are noted, more prominent on the right. There is patchy infiltrate and/or scarring in the right upper and both mid and particularly both lowe r lung zones. Status post sternotomy. Normal heart size. There is aortic calcification and mild unfolding. No pleural effusion or pneumothorax. Degenerative spurring at the acromioclavicular joints. IMPRESSION: Little interval change of bilateral pulmonary infiltrates since 05/25/2021, suspicious for bilateral pneumonia Reviewed, dictated and finalized at location A. IMPRESSION: Little interval change of bilateral pulmonary infiltrates since 04/28, suspicious for bilateral pneumonia
--- NOTE | ~2021-05-22 | XR_ITS ---
EXAMINATION: XR chest 1V portable DATE: 05/30/2021 05:27 INDICATION: Pneumonia. TECHNIQUE: A single frontal view of the chest was obtained. COMPARISON: Chest single view 05/27/2021, 07/23/2017 FINDINGS: There are airspace opacities in right perihilar region and the lower lung zones. Chronic de nsities in right lower lung zone are likely calcified pleural plaques. No pleural effusion or pneumot horax. The heart size is normal. Median sternotomy wires are noted. IMPRESSION: 1. Airspace opacities in right perihilar region and the lower lung zones with improvement on the left , consistent with atelectasis/scarring versus pneumonia. Reviewed, dictated and finalized at location A. IMPRESSION: 1. Airspace opacities in right perihilar region and the lower lung zones with i mprovement on the left, consistent with atelectasis/scarring versus pneumonia.
--- NOTE | ~2021-05-22 | XR_ITS ---
EXAMINATION: XR chest 1V portable EXAM DATE: 05/22/2021 19:53 INDICATION: Weakness, Was Here Yesterday For Fluids HX CVA,PVD . TECHNIQUE: Portable AP frontal chest x-ray was obtained. Comparison is made to prior examination from 05/21/2021, 03/23/2019. FINDINGS: Sternotomy wires are present without findings to suggest sternal dehiscence. There are bila teral pleural plaques unchanged. More pronounced left basilar airspace disease suspected compared to yesterday, possible developing superimposed pneumonia. Sternotomy wires are present without findings to suggest sternal dehiscence. Cardiomediastinal silhouette is normal. IMPRESSION: Bilateral pleural plaques. Somewhat more pronounced left basilar airspace disease, possi ble developing pneumonia. Reviewed, dictated and finalized at location G. IMPRESSION: Bilateral pleural plaques. Somewhat more pronounced left basilar a irspace disease, possible developing pneumonia.
--- NOTE | 2021-05-22 19:41 | ECG_ITS ---
Measurements Intervals [place] Rate: 79 P: 1 IA: 217 QRS: -51 QRSD: 136 T: 49 QT: 357 QTc: 410 Interpretive Statements SINUS RHYTHM WITH FIRST DEGREE AV BLOCK INTRAVENTRICULAR CONDUCTION DELAY [130+ ms QRS DURATION] COMPARED TO ECG 05/21/2021 08:45:59 PRECORDIAL T-WAVE INVERSION HAS RESOLVED Electronically Signed On 05-23-2021 7:40:41 CDT by Romain Hernandez M.D.
--- NOTE | 2021-05-22 19:42 | ED.GENADULT ---
HPI - General Adult General Chief complaint: Weakness Stated complaint: wakness seen yesterday Time Seen by Provider: 05/22/21 19:30 History of Present Illness HPI narrative: Patient is a 85-year-old gentleman who presents the emergency department with chief complaint of generalized weakness. Patient was seen in the emergency department yesterday for weakness was having difficulty walking and was given a normal saline bolus and was able to walk about 50 feet with a walker. The patient went home this morning was able to get out of bed and get into a chair with significant assistance but afterwards sat in the chair all day basically sleeping defecated on himself and the family was unable to get him up to be able to change him. The patient denies chest pain denies shortness of breath does report that he is not been eating and drinking very well lately. Patient reports that the symptoms or not improved by anything and are worsened with any type of activity Related Data Home Medications Medication Instructions Recorded Confirmed amiodarone 100 mg PO DAILY 03/21/19 05/23/21 aspirin 325 mg PO DAILY 03/21/19 05/23/21 atorvastatin 40 mg PO DAILY 03/21/19 05/23/21 clopidogrel 75 mg PO DAILY 03/21/19 05/23/21 donepezil 10 mg PO DAILY 03/21/19 05/23/21 gabapentin 600 mg PO BID 03/21/19 05/23/21 metoprolol tartrate 25 mg PO DAILY 03/21/19 05/23/21 quetiapine 25 mg PO DAILY 03/21/19 05/23/21 furosemide 20 mg PO DAILY 05/23/21 05/23/21 pantoprazole 40 mg PO DAILY 05/23/21 05/23/21 Allergies Allergy/AdvReac Type Severity Reaction Status Date / Time No Known Allergies Allergy Verified 03/21/19 09:40 Review of Systems Review of Systems: A 10 system review of systems was completed on the patient and is negative except for what is stated in the HPI. Nursing and ancillary documentation was reviewed. COUNTS INCLUDE 234 BEDS AT THE [facility] Past Medical History Medical History (Updated 05/23/21 @ 06:49 by Phillip Alvarado MD) Asbestosis With chronic plaquing noted on chest x-ray. Chronic anemia With chronic mild thrombocytopenia as well. 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 No residual deficits. Depression with anxiety Diet-controlled diabetes mellitus Hemoglobin A1c was 5.4 in June 2017. Dysphagia (~2019) Patient refuses G-tube despite continued aspiration GERD (gastroesophageal reflux disease) Hyperlipidemia Hypertension Neuropathy Osteoarthritis Paroxysmal atrial fibrillation Peripheral vascular disease With balloon angioplasty to popliteal artery above the right knee in September [address] Gamble. Prostate cancer Vivid dream Apparently this is been ongoing for many decades, and daughter describes that he has ?violent and vivid dreams.? Surgical History Surgical History Status post four vessel coronary artery bypass May [address] Guerrero at [facility]. Status post left knee replacement Status post prostatectomy Status post tonsillectomy Family History Family History Father Alcoholism Congestive heart failure Social History Social History (Updated 05/23/21 @ 06:26 by Korina Dorman DO) Social History: Mr. Leyva is and lives in [place] with his . His daughter and son-in-law have moved in to help. 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 He smoked 2 packs of cigarettes per day for about 15 years and quit 1973. He has not drank since 1998. His daughter, Brittani, is his power of divorce attorney. His daughter thinks that the patient was supposed to be a DNR but she wants to confer with family members as the decision to his code status was made when he was ill a couple of years ago. Daughter does report to nursing staff that the patient has been declining in function recently. Smoking status: Former smoker Alcohol int
--- NOTE | 2021-05-22 20:33 | PC.NURSE ---
Daughter Shasha Leyva [phone].
--- NOTE | 2021-05-22 21:06 | PC.NURSE ---
SPO2 DROPPED TO 81% WHEN SLEEPING, O2 APPLIED AT 2L/NC
[2021-05-22 21:36] LABS: Basophils Percent Auto 0.1 % (0.2-1.2); Hematocrit 39.1 % (42.0-52.0); Hemoglobin 12.4 g/dL (14.0-18.0); Immature Granulocyte Absolute 0.03 K/mm3 (0.00-0.031); Immature Granulocyte Percent A 0.4 % (0-0.5); Lymphocytes Absolute Auto 0.33 K/mm3 (0.9-3.2); Lymphocytes Percent Auto 4.1 % (18.3-44.2); Mean Corpuscular HGB Conc 31.7 g/dl (32-36); Mean Corpuscular Hemoglobin 31.3 pg (26-34); Mean Corpuscular Volume 98.7 fl (80-100); Mean Platelet Volume 12.4 fl (7.4-10.4); Monocytes Absolute Auto 0.4 K/mm3 (0.1-0.6); Monocytes Percent Auto 5.1 % (2.6-8.5); Neutrophils Absolute Auto 7.3 K/mm3 (1.3-6.7); Neutrophils Percent Auto 90.3 % (45.5-73.1); Platelet Count Result 90 k/mm3 (150-375); Red Blood Count 3.96 M/mm3 (4.6-6.20); Red Cell Distribution Width 13.7 % (11.5-14.5); White Blood Count 8.1 K/mm3 (4.5-10.0)
[2021-05-22 21:43] LABS: Add Urine Microscopic? YES; Appearance Urine Cloudy (Clear); Bilirubin Urine Negative (Negative); Blood Urine 1+ (Negative); Color Urine Yellow (Yellow); Glucose Urine UA Negative (Negative); Ketones Urine Negative (Negative); Leukocyte Esterase Ur Negative LEU/UL (Negative); Nitrate Urine Negative (Negative); Protein Urine 2+ mg/dL (Negative); RBC Urine 0-2 /hpf (0-2); Specific Grav Ur 1.015 (1.001-1.035); Squamous Epithelial Cell Urine Rare /hpf (Few); Urobilinogen Urine Negative mg/dL (<2.0); WBC Urine 0-3 /hpf
[2021-05-22 21:46] LABS: Alanine Aminotransferase 17 U/L (4-50); Albumin Level 3.4 g/dL (3.5-5.1); Alkaline Phosphatase 94 U/L (38-126); Anion Gap 8 mmol/L (8-16); Aspartate Amino Transferase 41 U/L (17-59); Bilirubin,Total 0.9 mg/dL (0.2-1.3); Blood Urea Nitrogen 29 mg/dL (9-20); Calcium 7.8 mg/dL (8.4-10.2); Carbon Dioxide 24 mmol/L (22-30); Chloride 99 mmol/L (98-107); Estimated Glomerular Filt Rate 41; Glucose 104 mg/dL (65-110); Magnesium 1.6 mg/dL (1.6-2.3); Potassium 4.2 mmol/L (3.4-5.0); Sodium 131 mmol/L (137-145)
[2021-05-22 21:48] LABS: Lactic Acid Reflex 1.7 mmol/L (0.7-2.1)
[2021-05-22 21:51] LABS: SARS-CoV-2 RNA PCR Positive
[2021-05-22 22:00] LABS: Troponin I 0.047 ng/mL (0.000-0.034)
[2021-05-22] MEDS: SODIUM CHLORIDE 0.9% IV 1,000 ML 999 ML IV CONT (22:37)
[2021-05-22] MEDS: ASPIRIN 81 MG CHEWABLE TABLET 324 MG PO (22:40)
[2021-05-23] VITALS (22 sets, daily range): BP systolic 105–171; BP diastolic 45–80; PULSE 47–71; RESP 16–20; TEMP 36–37.6; O2SAT 94–99; BMI 26.0
[2021-05-23 00:22] LABS: INR 1.2; Prothrombin Time 14.3 Seconds (11.1-14.7)
--- NOTE | 2021-05-23 00:52 | PC.NURSE ---
This patient, Tommy Leyva, was admitted to IMU Room 200-01. Patient/family oriented to hospital policies and general routines including ID bracelet, bed and alarms, visiting hours, pain management, procedures, bathroom and other care routines, personal items, smoking policy, room service/diet, and visiting hours. Information on how to activate the Rapid Response Team has been discussed. Patient/Family are encouraged to report perceived risks to care and to ask questions if they do not understand what they are told or what they should do.
[2021-05-23] MEDS: SODIUM CHLORIDE 0.9% IV 1,000 ML 80 ML IV CONT (00:58)
[2021-05-23 01:39] LABS: Troponin I 0.054 ng/mL (0.000-0.034)
[2021-05-23 03:35] LABS: Alanine Aminotransferase 15 U/L (4-50); Estimated CRCL calculation 35 ml/min; Estimated Glomerular Filt Rate 41
[2021-05-23 03:40] LABS: INR 1.2; Prothrombin Time 14.9 Seconds (11.1-14.7)
[2021-05-23 04:13] LABS: Troponin I 0.056 ng/mL (0.000-0.034)
--- NOTE | 2021-05-23 06:13 | PM.IMHP ---
H&P: HPI History of Present Illness Date/Time: 05/23/21 06:13 Chief Complaint: Weakness Narrative: 85-year-old male with past medical history of atrial fibrillation, dementia, hyperlipidemia, hypertension, GERD and dysphagia who presents to the ER from home via EMS due to weakness. The patient had been brought to the ER on the due to weakness. Labs at that time were unremarkable. The patient received some fluids and was ambulated and went home. When he returned home he was progressively more weak and was unable to stand. He is sad in the same chair and soiled himself. When the family could not get him up to change in they called EMS to bring him back into the ER. Repeat chest x-ray today demonstrated I new infiltrates complicating patient's prior findings of asbestosis. The family report reports that the patient was not coughing or having any respiratory symptoms. The patient contradicts this and states that he has been coughing more than usual. He denies any fevers or chills but patient did have a temperature of 99.3? on arrival to the intermediate unit. The patient has received his 2 COVID vaccines and his booster. The patient his and the patient's daughter and son-in-law all live in the same home. The only outside exposure they really have his the 's bridge club. The patient tested positive for COVID on his 2nd visit to the ER. He was not test the 1st visit. After the patient tested positive all the family members took at home test and have all tested positive as well. Patient denies any nausea or vomiting. At the time of my evaluation the patient is alert orient x3 but thinks the president is [place]. The daughter does report that the patient does cough and have episodes of choking with eating. During his last hospitalization in 2019 the patient was noted to have dysphagia and had failed modified barium swallow. The patient adamantly refused having a G-tube or NG placed for long-term nutrition. The patient was initially placed on a modified diet which than the patient also refused to eat or drink. Subsequently patient was discharged back home on a regular consistency diet. Review of Systems Review of Systems: 12 point review of systems was attempted but limited due to patient's dementia. He does have chronic urinary dribbling. Denies any dysuria. He has had increased cough. He denies chest pain. He does have witnessed coughing episodes with eating on occasion. [facility] Past Medical History Medical History (Updated 05/23/21 @ 06:36 by Korina Dorman DO) Asbestosis With chronic plaquing noted on chest x-ray. Chronic anemia With chronic mild thrombocytopenia as well. 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 No residual deficits. Depression with anxiety Diet-controlled diabetes mellitus Hemoglobin A1c was 5.4 in June 2017. Dysphagia (~2019) Patient refuses G-tube despite continued aspiration GERD (gastroesophageal reflux disease) Hyperlipidemia Hypertension Neuropathy Osteoarthritis Paroxysmal atrial fibrillation Peripheral vascular disease With balloon angioplasty to popliteal artery above the right knee in September [address] Gamble. Prostate cancer Vivid dream Apparently this is been ongoing for many decades, and daughter describes that he has ?violent and vivid dreams.? Surgical History Surgical History Status post four vessel coronary artery bypass May [address] Guerrero at [facility]. Status post left knee replacement Status post prostatectomy Status post tonsillectomy Family History Family History Father Alcoholism Congestive heart failure Social History Social History (Updated 05/23/21 @ 06:26 by Korina Dorman DO) Social History: Mr. Leyva is and lives in [place] with his . Hi
[2021-05-23] MEDS: REMDESIVIR 200 MG/NS 250 ML 200 MG/250 ML BAG 250 MG IVPB (06:31)
[2021-05-23 08:01] LABS: Anion Gap 5 mmol/L (8-16); Blood Urea Nitrogen 26 mg/dL (9-20); Calcium 7.4 mg/dL (8.4-10.2); Carbon Dioxide 27 mmol/L (22-30); Chloride 102 mmol/L (98-107); Estimated CRCL calculation 39 ml/min; Estimated Glomerular Filt Rate 48; Glucose 94 mg/dL (65-110); Potassium 3.9 mmol/L (3.4-5.0); Sodium 134 mmol/L (137-145)
[2021-05-23 08:18] LABS: Hematocrit 33.8 % (42.0-52.0); Hemoglobin 10.8 g/dL (14.0-18.0); Mean Corpuscular Hemoglobin 31.4 pg (26-34); Mean Corpuscular Volume 98.3 fl (80-100); Mean Platelet Volume 12.7 fl (7.4-10.4); Platelet Count Result 78 k/mm3 (150-375); Red Blood Count 3.44 M/mm3 (4.6-6.20); Red Cell Distribution Width 13.8 % (11.5-14.5); White Blood Count 6.2 K/mm3 (4.5-10.0)
[2021-05-23] MEDS: METOPROLOL TARTRATE 25 MG TABLET PO (09:05)
[2021-05-23] MEDS: PANTOPRAZOLE 40 MG TABLET PO (09:05)
[2021-05-23] MEDS: GABAPENTIN 300 MG CAPSULE 600 MG PO ×2 (09:06→17:37)
[2021-05-23] MEDS: DONEPEZIL HCL 10 MG TABLET PO (09:06)
[2021-05-23] MEDS: AMIODARONE HCL 100 MG TABLET PO (09:07)
[2021-05-23] MEDS: ASPIRIN 325 MG TABLET PO (09:07)
[2021-05-23] MEDS: CLOPIDOGREL BISULFATE 75 MG TABLET PO (09:07)
[2021-05-23] MEDS: ATORVASTATIN 40 MG TABLET PO (09:07)
--- NOTE | 2021-05-23 09:57 | PM.IMPN ---
Progress Note: A&P Assessment and Plan (1) Pneumonia due to COVID-19 virus: Code(s): U07.1 - COVID-19; J12.82 - Pneumonia due to coronavirus disease 2018 Status: Acute (2) Acute respiratory failure with hypoxia: Code(s): J96.01 - Acute respiratory failure with hypoxia Status: Acute (3) Acute kidney injury: Code(s): N17.9 - Acute kidney failure, unspecified Status: Acute (4) Dysphagia: Onset Date: ~2019 Qualifiers: Dysphagia type: unspecified Qualified Code(s): R13.10 - Dysphagia, unspecified Code(s): R13.10 - Dysphagia, unspecified Status: Acute (5) Elevated troponin: Code(s): R77.8 - Other specified abnormalities of plasma proteins Status: Acute Additional Plan # acute hypoxic respiratory failure secondary to COVID-19 pneumonia plus-minus bacterial pneumonia. Empirically started on ceftriaxone and azithromycin # acute COVID-19 pneumonia started on Decadron and remdesivir # possible aspiration pneumonia on ceftriaxone azithromycin # NORMA received 1 L of IV fluids in the ER. Creatinine on admission 1.6 improve down to 1.4 today. # history of dysphagia and aspiration in the past. Speech therapy consulted. Refused G-tube placement in the past # elevated troponin flat trajectory. EKG with nonspecific ST-T changes. Likely due to renal insufficiency/hypoxia/pneumonia # history of asbestosis with chronic plaquing # chronic anemia # chronic thrombocytopenia continue to monitor # history of CVA with old lacunar infarct in right lentiform nucleus and left occipital lobe on prior imaging with no focal residual deficits # anxiety depression home medications # diabetes mellitus type 2 diet control # GERD home medications # hypertension home medication # hyperlipidemia home medications # neuropathy home medications # proximal atrial fibrillation on amiodarone EKG showed sinus rhythm # peripheral vascular disease status post balloon angioplasty to popliteal artery above the right knee in September 2017 # prostate cancer status post prostatectomy # coronary artery disease status post CABG # DVT prophylaxis: SCDs due to thrombocytopenia # code status full code Subjective Date/time seen: 05/23/21 09:57 Interval history: HPI:85-year-old male with past medical history of atrial fibrillation, dementia, hyperlipidemia, hypertension, GERD and dysphagia who presents to the ER from home via EMS due to weakness. The patient had been brought to the ER on the 26th due to weakness. Labs at that time were unremarkable. The patient received some fluids and was ambulated and went home. When he returned home he was progressively more weak and was unable to stand. He is sad in the same chair and soiled himself. When the family could not get him up to change in they called EMS to bring him back into the ER. Repeat chest x-ray today demonstrated new infiltrates complicating patient's prior findings of asbestosis. The family report reports that the patient was not coughing or having any respiratory symptoms. The patient contradicts this and states that he has been coughing more than usual. He denies any fevers or chills but patient did have a temperature of 99.3? on arrival to the intermediate unit. The patient has received his 2 COVID vaccines and his booster. The patient his and the patient's daughter and son-in-law all live in the same home. The only outside exposure they really have his the 's bridge club. The patient tested positive for COVID on his 2nd visit to the ER. He was not test the 1st visit. After the patient tested positive all the family members took at home test and have all tested positive as well. Patient denies any nausea or vomiting. At the time of my evaluation the patient is alert orient x3 but thinks the president is [place]. The daughter does report that the patient does cough and have episodes of choking with eating. During his last hospitalization in
[2021-05-23] MEDS: ALBUTEROL SULFATE NEB 2.5 MG/0.5 ML INH 5 MG INHALATION ×2 (13:40→20:21)
[2021-05-23] MEDS: IPRATROPIUM BR 0.02% INH SOLN 0.5 MG/2.5 ML VIAL INHALATION ×2 (13:40→20:21)
[2021-05-24] VITALS (16 sets, daily range): BP systolic 141–180; BP diastolic 57–69; PULSE 54–70; RESP 16–18; TEMP 35.8–36.3; O2SAT 90–99
[2021-05-24] MEDS: ALBUTEROL SULFATE NEB 2.5 MG/0.5 ML INH 5 MG INHALATION ×4 (02:51→20:01)
[2021-05-24] MEDS: IPRATROPIUM BR 0.02% INH SOLN 0.5 MG/2.5 ML VIAL INHALATION ×4 (02:51→20:01)
[2021-05-24 06:30] LABS: Hematocrit 34.3 % (42.0-52.0); Hemoglobin 11.1 g/dL (14.0-18.0); Immature Granulocyte Absolute 0.01 K/mm3 (0.00-0.031); Immature Granulocyte Percent A 0.2 % (0-0.5); Immature Platelet Fraction Pct 11.4 % (0.9-11.2); Lymphocytes Absolute Auto 0.25 K/mm3 (0.9-3.2); Lymphocytes Percent Auto 4.3 % (18.3-44.2); Mean Corpuscular HGB Conc 32.4 g/dl (32-36); Mean Corpuscular Hemoglobin 31.3 pg (26-34); Mean Corpuscular Volume 96.6 fl (80-100); Mean Platelet Volume 12.1 fl (7.4-10.4); Monocytes Absolute Auto 0.4 K/mm3 (0.1-0.6); Monocytes Percent Auto 6.5 % (2.6-8.5); Neutrophils Absolute Auto 5.2 K/mm3 (1.3-6.7); Platelet Count Result 77 k/mm3 (150-375); Red Blood Count 3.55 M/mm3 (4.6-6.20); Red Cell Distribution Width 13.5 % (11.5-14.5); White Blood Count 5.8 K/mm3 (4.5-10.0)
[2021-05-24 07:06] LABS: INR 1.3; Prothrombin Time 15.7 Seconds (11.1-14.7)
[2021-05-24 07:09] LABS: D Dimer 2.21 ug/mL (<0.48)
[2021-05-24 07:21] LABS: Anisocytosis 1+ (NORMAL); Ovalocytes 1+ (NORMAL); Platelet Estimate Decreased (Adequate)
[2021-05-24 07:39] LABS: Alanine Aminotransferase 20 U/L (4-50); Alkaline Phosphatase 78 U/L (38-126); Anion Gap 6 mmol/L (8-16); Aspartate Amino Transferase 55 U/L (17-59); Bilirubin,Total 0.5 mg/dL (0.2-1.3); Blood Urea Nitrogen 27 mg/dL (9-20); Calcium 7.9 mg/dL (8.4-10.2); Carbon Dioxide 26 mmol/L (22-30); Chloride 100 mmol/L (98-107); Estimated CRCL calculation 46 ml/min; Estimated Glomerular Filt Rate 58; Glucose 155 mg/dL (65-110); Potassium 3.6 mmol/L (3.4-5.0); Sodium 132 mmol/L (137-145)
[2021-05-24 07:51] LABS: CRP 28.5 mg/dL (<1.0)
[2021-05-24 08:04] LABS: Glucose Point of Care 139 mg/dl (65-105)
[2021-05-24] MEDS: ACETAMINOPHEN 325 MG TABLET 650 MG PO (10:24)
[2021-05-24] MEDS: GABAPENTIN 300 MG CAPSULE 600 MG PO (10:24)
[2021-05-24] MEDS: QUEtiapine FUMARATE 25 MG TABLET PO (10:25)
[2021-05-24] MEDS: DONEPEZIL HCL 10 MG TABLET PO (10:25)
[2021-05-24] MEDS: METOPROLOL TARTRATE 25 MG TABLET PO (10:25)
[2021-05-24] MEDS: CLOPIDOGREL BISULFATE 75 MG TABLET PO (10:25)
[2021-05-24] MEDS: PANTOPRAZOLE 40 MG TABLET PO (10:25)
[2021-05-24] MEDS: AMIODARONE HCL 100 MG TABLET PO (10:26)
[2021-05-24] MEDS: ATORVASTATIN 40 MG TABLET PO (10:27)
[2021-05-24] MEDS: REMDESIVIR 100 MG/NS 250 ML 100 MG/250 ML BAG 250 MG IVPB (10:28)
[2021-05-24] MEDS: LORazepam (*CRX) 1 MG TABLET PO (11:36)
[2021-05-24] MEDS: ASPIRIN 81 MG CHEWABLE TABLET PO (11:36)
--- NOTE | 2021-05-24 14:23 | PCOTNOTE ---
Attempted to see patient this pm, however per physical therapy technician, patient was given Ativan and unable to participate at this time.
--- NOTE | 2021-05-24 15:13 | PM.IMPN ---
Progress Note: A&P Assessment and Plan (1) Pneumonia due to COVID-19 virus: Code(s): U07.1 - COVID-19; J12.82 - Pneumonia due to coronavirus disease 2018 Status: Acute (2) Acute respiratory failure with hypoxia: Code(s): J96.01 - Acute respiratory failure with hypoxia Status: Acute (3) Acute kidney injury: Code(s): N17.9 - Acute kidney failure, unspecified Status: Acute (4) Dysphagia: Onset Date: ~2019 Qualifiers: Dysphagia type: unspecified Qualified Code(s): R13.10 - Dysphagia, unspecified Code(s): R13.10 - Dysphagia, unspecified Status: Acute (5) Elevated troponin: Code(s): R77.8 - Other specified abnormalities of plasma proteins Status: Acute Additional Plan # acute hypoxic respiratory failure secondary to COVID-19 pneumonia plus-minus bacterial pneumonia. Empirically started on ceftriaxone and azithromycin. Oxygen requirement improving # acute COVID-19 pneumonia started on Decadron and remdesivir. Continue Decadron and remdesivir # possible aspiration pneumonia on ceftriaxone azithromycin # NORMA received 1 L of IV fluids in the ER. Creatinine on admission 1.6 improve down to 1.4. Continues to improve. # history of dysphagia and aspiration in the past. Speech therapy consulted. Refused G-tube placement in the past # elevated troponin flat trajectory. EKG with nonspecific ST-T changes. 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 Likely delirium. Continue to monitor # anxiety depression home medications # diabetes mellitus type 2 diet control # GERD home medications # hypertension home medication # hyperlipidemia home medications # neuropathy home medications # proximal atrial fibrillation on amiodarone EKG showed sinus rhythm # peripheral vascular disease status post balloon angioplasty to popliteal artery above the right knee in September 2017 # prostate cancer status post prostatectomy # coronary artery disease status post CABG # DVT prophylaxis: SCDs due to thrombocytopenia # code status full code Subjective Date/time seen: 05/24/21 15:13 Interval history: HPI:85-year-old male with past medical history of atrial fibrillation, dementia, hyperlipidemia, hypertension, GERD and dysphagia who presents to the ER from home via EMS due to weakness. The patient had been brought to the ER on the due to weakness. Labs at that time were unremarkable. The patient received some fluids and was ambulated and went home. When he returned home he was progressively more weak and was unable to stand. He is sad in the same chair and soiled himself. When the family could not get him up to change in they called EMS to bring him back into the ER. Repeat chest x-ray today demonstrated new infiltrates complicating patient's prior findings of asbestosis. The family report reports that the patient was not coughing or having any respiratory symptoms. The patient contradicts this and states that he has been coughing more than usual. He denies any fevers or chills but patient did have a temperature of 99.3? on arrival to the intermediate unit. The patient has received his 2 COVID vaccines and his booster. The patient his and the patient's daughter and son-in-law all live in the same home. The only outside exposure they really have his the 's bridge club. The patient tested positive for COVID on his 2nd visit to the ER. He was not test the 1st visit. After the patient tested positive all the family members took at home test and have all tested positive as well. Patient denies any nausea or vomiting. At the time of my evaluation the patient is alert orient x3 but t
[2021-05-24 16:23] LABS: Glucose Point of Care 148 mg/dl (65-105)
[2021-05-25] VITALS (13 sets, daily range): BP systolic 164–176; BP diastolic 66–81; PULSE 53–69; RESP 16–22; TEMP 36.3–36.7; O2SAT 92–98
[2021-05-25] MEDS: ALBUTEROL SULFATE NEB 2.5 MG/0.5 ML INH 5 MG INHALATION ×3 (02:16→21:44)
[2021-05-25] MEDS: IPRATROPIUM BR 0.02% INH SOLN 0.5 MG/2.5 ML VIAL INHALATION ×3 (02:16→21:45)
[2021-05-25] MEDS: LORazepam (*CRX) 1 MG TABLET PO (05:31)
[2021-05-25 06:41] LABS: Hematocrit 34.3 % (42.0-52.0); Hemoglobin 11.1 g/dL (14.0-18.0); Immature Granulocyte Absolute 0.02 K/mm3 (0.00-0.031); Immature Granulocyte Percent A 0.3 % (0-0.5); Lymphocytes Absolute Auto 0.32 K/mm3 (0.9-3.2); Lymphocytes Percent Auto 5.1 % (18.3-44.2); Mean Corpuscular HGB Conc 32.4 g/dl (32-36); Mean Corpuscular Hemoglobin 31.3 pg (26-34); Mean Corpuscular Volume 96.6 fl (80-100); Mean Platelet Volume 12.6 fl (7.4-10.4); Monocytes Absolute Auto 0.4 K/mm3 (0.1-0.6); Monocytes Percent Auto 5.9 % (2.6-8.5); Neutrophils Absolute Auto 5.5 K/mm3 (1.3-6.7); Neutrophils Percent Auto 88.7 % (45.5-73.1); Platelet Count Result 95 k/mm3 (150-375); Red Blood Count 3.55 M/mm3 (4.6-6.20); White Blood Count 6.2 K/mm3 (4.5-10.0)
[2021-05-25 06:47] LABS: Alanine Aminotransferase 20 U/L (4-50); Aspartate Amino Transferase 51 U/L (17-59); Estimated CRCL calculation 54 ml/min; Estimated Glomerular Filt Rate > 60
[2021-05-25 08:19] LABS: Glucose Point of Care 129 mg/dl (65-105)
--- NOTE | 2021-05-25 10:09 | PCSTNOTE ---
Dr. Pantoja reported that patient literally just aspirated with a witnessed aspiration/choking episode. He requested waiting for a little bit, allowing patient to remain NPO and let antibiotics work and then assess at a later time, possibly this afternoon. Therapist was in agreement.
[2021-05-25] MEDS: METOPROLOL TARTRATE 25 MG TABLET PO (11:05)
[2021-05-25] MEDS: ASPIRIN 81 MG CHEWABLE TABLET PO (11:06)
[2021-05-25] MEDS: PANTOPRAZOLE 40 MG TABLET PO (11:06)
[2021-05-25] MEDS: ATORVASTATIN 40 MG TABLET PO (11:06)
[2021-05-25] MEDS: CLOPIDOGREL BISULFATE 75 MG TABLET PO (11:06)
[2021-05-25] MEDS: AMIODARONE HCL 100 MG TABLET PO (11:06)
[2021-05-25] MEDS: GABAPENTIN 300 MG CAPSULE 600 MG PO (11:06)
[2021-05-25] MEDS: DONEPEZIL HCL 10 MG TABLET PO (11:07)
[2021-05-25] MEDS: QUEtiapine FUMARATE 25 MG TABLET PO (11:07)
[2021-05-25] MEDS: REMDESIVIR 100 MG/NS 250 ML 100 MG/250 ML BAG 250 MG IVPB (11:09)
[2021-05-25 12:02] LABS: Glucose Point of Care 130 mg/dl (65-105)
[2021-05-25 17:25] LABS: Glucose Point of Care 147 mg/dl (65-105)
--- NOTE | 2021-05-25 17:41 | P.PNIM_ITS ---
Progress Note: A&P Assessment and Plan (1) Pneumonia due to COVID-19 virus: Code(s): U07.1 - COVID-19; J12.82 - Pneumonia due to coronavirus disease 2018 Status: Acute (2) Acute respiratory failure with hypoxia: Code(s): J96.01 - Acute respiratory failure with hypoxia Status: Acute (3) Acute kidney injury: Code(s): N17.9 - Acute kidney failure, unspecified Status: Acute (4) Dysphagia: Onset Date: ~2019 Qualifiers: Dysphagia type: unspecified Qualified Code(s): R13.10 - Dysphagia, unspecified Code(s): R13.10 - Dysphagia, unspecified Status: Acute (5) Elevated troponin: Code(s): R77.8 - Other specified abnormalities of plasma proteins Status: Acute Additional Plan # acute hypoxic respiratory failure secondary to COVID-19 pneumonia plus-minus bacterial pneumonia. Empirically started on ceftriaxone and azithromycin. Oxygen requirement improving # acute COVID-19 pneumonia started on Decadron and remdesivir. Continue Decad andrade and remdesivir # possible aspiration pneumonia on ceftriaxone azithromycin # NORMA received 1 L of IV fluids in the ER. Creatinine on admission 1.6 improve down to 1.4. Continues to improve. # history of dysphagia and aspiration in the past. Speech therapy consulted. Refused G-tube placement in the past # elevated troponin flat trajectory. EKG with nonspecific ST-T changes. 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 Likely delirium. Continue to monitor # anxiety depression home medications # diabetes mellitus type 2 diet control # GERD home medications # hypertension home medication # hyperlipidemia home medications # neuropathy home medications # proximal atrial fibrillation on amiodarone EKG showed sinus rhythm # peripheral vascular disease status post balloon angioplasty to popliteal artery above the right knee in September 2017 # prostate cancer status post prostatectomy # coronary artery disease status post CABG # DVT prophylaxis: SCDs due to thrombocytopenia # code status full code Subjective Date/time seen: 05/25/21 17:41 Interval history: HPI:85-year-old male with past medical history of atrial fibrillation, dementia, hyperlipidemia, hypertension, GERD and dysphagia who presents to the ER from home via EMS due to weakness. The patient had been brought to the ER on the due to weakness. Labs at that time were unrema rkable. The patient received some fluids and was ambulated and went home. When he returned home he was progressively more weak and was unable to stand. He is sad in the same chair and soiled himself. When the family could not get him up to change in they called EMS to bring him back into the ER. Repeat chest x-ray today demonstrated new infiltrates complicating patient's prior findings of asb estosis. The family report reports that the patient was not coughing or having any respiratory symptoms. The patient contradicts this and states that he has been coughing more than usual. He denies any fevers or chills but patient did have a temperature of 99.3? on arrival to the intermediate unit. The patient has received his 2 COVID vaccines and his booster. The patient his and the patient's daughter and son-in-law all live in the same home. The only outside exposure they really have his the 's bridge club. The patient tested po
[2021-05-26] VITALS (18 sets, daily range): BP systolic 130–183; BP diastolic 65–79; PULSE 53–67; RESP 16–57; TEMP 35.6–36.4; O2SAT 93–98
[2021-05-26] MEDS: ALBUTEROL SULFATE NEB 2.5 MG/0.5 ML INH 5 MG INHALATION ×4 (02:54→21:00)
[2021-05-26] MEDS: IPRATROPIUM BR 0.02% INH SOLN 0.5 MG/2.5 ML VIAL INHALATION ×4 (02:54→21:00)
[2021-05-26 06:29] LABS: Hemoglobin 12.2 g/dL (14.0-18.0); Immature Granulocyte Absolute 0.02 K/mm3 (0.00-0.031); Immature Granulocyte Percent A 0.3 % (0-0.5); Lymphocytes Absolute Auto 0.38 K/mm3 (0.9-3.2); Lymphocytes Percent Auto 5.8 % (18.3-44.2); Mean Corpuscular HGB Conc 32.1 g/dl (32-36); Mean Corpuscular Hemoglobin 31.1 pg (26-34); Mean Corpuscular Volume 96.9 fl (80-100); Monocytes Absolute Auto 0.5 K/mm3 (0.1-0.6); Monocytes Percent Auto 6.8 % (2.6-8.5); Neutrophils Absolute Auto 5.7 K/mm3 (1.3-6.7); Neutrophils Percent Auto 87.1 % (45.5-73.1); Platelet Count Result 114 k/mm3 (150-375); Red Blood Count 3.92 M/mm3 (4.6-6.20); Red Cell Distribution Width 14.1 % (11.5-14.5); White Blood Count 6.6 K/mm3 (4.5-10.0)
[2021-05-26 06:40] LABS: INR 1.3; Prothrombin Time 15.5 Seconds (11.1-14.7)
[2021-05-26 06:41] LABS: CRP 8.3 mg/dL (<1.0)
[2021-05-26 08:30] LABS: Alanine Aminotransferase 23 U/L (4-50); Albumin Level 3.2 g/dL (3.5-5.1); Alkaline Phosphatase 85 U/L (38-126); Anion Gap 7 mmol/L (8-16); Aspartate Amino Transferase 43 U/L (17-59); Bilirubin,Total 0.7 mg/dL (0.2-1.3); Blood Urea Nitrogen 26 mg/dL (9-20); Calcium 8.4 mg/dL (8.4-10.2); Carbon Dioxide 30 mmol/L (22-30); Chloride 103 mmol/L (98-107); Estimated CRCL calculation 53 ml/min; Estimated Glomerular Filt Rate > 60; Glucose 150 mg/dL (65-110); Potassium 4.2 mmol/L (3.4-5.0); Sodium 140 mmol/L (137-145)
[2021-05-26 08:39] LABS: Glucose Point of Care 145 mg/dl (65-105)
[2021-05-26] MEDS: REMDESIVIR 100 MG/NS 250 ML 100 MG/250 ML BAG 250 MG IVPB (09:44)
[2021-05-26] MEDS: GABAPENTIN 300 MG CAPSULE 600 MG PO ×2 (09:45→17:49)
[2021-05-26] MEDS: METOPROLOL TARTRATE 25 MG TABLET PO (09:46)
[2021-05-26] MEDS: QUEtiapine FUMARATE 25 MG TABLET PO (09:46)
[2021-05-26] MEDS: CLOPIDOGREL BISULFATE 75 MG TABLET PO (09:46)
[2021-05-26] MEDS: AMIODARONE HCL 100 MG TABLET PO (09:47)
[2021-05-26] MEDS: DONEPEZIL HCL 10 MG TABLET PO (09:47)
[2021-05-26] MEDS: ATORVASTATIN 40 MG TABLET PO (09:47)
[2021-05-26] MEDS: ASPIRIN 81 MG CHEWABLE TABLET PO (09:47)
[2021-05-26] MEDS: PANTOPRAZOLE 40 MG TABLET PO (09:47)
--- NOTE | 2021-05-26 09:55 | PCSTNOTE ---
Please refer to the Bedside Swallow Evaluation in the EMR. Please note, silent aspiration cannot be ruled out at bedside.
[2021-05-26 11:54] LABS: Glucose Point of Care 142 mg/dl (65-105)
--- NOTE | 2021-05-26 13:18 | PM.IMPN ---
Progress Note: A&P Assessment and Plan (1) Pneumonia due to COVID-19 virus: Code(s): U07.1 - COVID-19; J12.82 - Pneumonia due to coronavirus disease 2018 Status: Acute (2) Acute respiratory failure with hypoxia: Code(s): J96.01 - Acute respiratory failure with hypoxia Status: Acute (3) Acute kidney injury: Code(s): N17.9 - Acute kidney failure, unspecified Status: Acute (4) Dysphagia: Onset Date: ~2019 Qualifiers: Dysphagia type: unspecified Qualified Code(s): R13.10 - Dysphagia, unspecified Code(s): R13.10 - Dysphagia, unspecified Status: Acute (5) Elevated troponin: Code(s): R77.8 - Other specified abnormalities of plasma proteins Status: Acute Subjective Date/time seen: 05/26/21 13:18 Interval history: HPI:85-year-old male with past medical history of atrial fibrillation, dementia, hyperlipidemia, hypertension, GERD and dysphagia who presents to the ER from home via EMS due to weakness. The patient had been brought to the ER on the due to weakness. Labs at that time were unremarkable. The patient received some fluids and was ambulated and went home. When he returned home he was progressively more weak and was unable to stand. He is sad in the same chair and soiled himself. When the family could not get him up to change in they called EMS to bring him back into the ER. Repeat chest x-ray today demonstrated new infiltrates complicating patient's prior findings of asbestosis. The family report reports that the patient was not coughing or having any respiratory symptoms. The patient contradicts this and states that he has been coughing more than usual. He denies any fevers or chills but patient did have a temperature of 99.3? on arrival to the intermediate unit. The patient has received his 2 COVID vaccines and his booster. The patient his and the patient's daughter and son-in-law all live in the same home. The only outside exposure they really have his the 's bridge club. The patient tested positive for COVID on his 2nd visit to the ER. He was not test the 1st visit. After the patient tested positive all the family members took at home test and have all tested positive as well. Patient denies any nausea or vomiting. At the time of my evaluation the patient is alert orient x3 but thinks the president is [place]. The daughter does report that the patient does cough and have episodes of choking with eating. During his last hospitalization in 2019 the patient was noted to have dysphagia and had failed modified barium swallow. The patient adamantly refused having a G-tube or NG placed for long-term nutrition. The patient was initially placed on a modified diet which than the patient also refused to eat or drink. Subsequently patient was discharged back home on a regular consistency diet. 05/23/2021 feeling better. Has some cough. Generalized weakness present. No shortness of breath. Discussed with nursing staff 05/24/2021 agitated this morning confused. Trying to call 911 from his phone. He is off oxygen now. Discussed with the nursing staff. interval history: patient 85-year-old male COVID positive being treated with remdesivir 2/5 and dexamethasone 05/05 patient remains confused, he had a witnessed aspiration while eating chest x-ray suspicious for aspiration pneumonia will start the patient Zosyn to cover for anaerobics as well and continue azithromycin, will give the patient NPO will have a swallow study will continue to monitor interval history: patient 85-year-old male COVID positive being treated with remdesivir 3/5 and dexamethasone 06/05 patient remains confused, on 05/25 he had a witnessed aspiration while eating chest x-ray suspicious for aspiration pneumonia started the patient on Zosyn to cover for anaerobics as well and continue azithromycin, the patient was NPO, today had swallow study, patient still h
[2021-05-26 16:46] LABS: Glucose Point of Care 150 mg/dl (65-105)
[2021-05-27] VITALS (16 sets, daily range): BP systolic 116–186; BP diastolic 46–83; PULSE 55–76; RESP 15–20; TEMP 35.7–36.4; O2SAT 95–99
[2021-05-27] MEDS: ALBUTEROL SULFATE NEB 2.5 MG/0.5 ML INH 5 MG INHALATION ×4 (02:25→22:48)
[2021-05-27] MEDS: IPRATROPIUM BR 0.02% INH SOLN 0.5 MG/2.5 ML VIAL INHALATION ×4 (02:25→22:48)
[2021-05-27 06:08] LABS: Hematocrit 35.6 % (42.0-52.0); Hemoglobin 11.6 g/dL (14.0-18.0); Mean Corpuscular HGB Conc 32.6 g/dl (32-36); Mean Corpuscular Hemoglobin 31.1 pg (26-34); Mean Corpuscular Volume 95.4 fl (80-100); Mean Platelet Volume 12.8 fl (7.4-10.4); Platelet Count Result 116 k/mm3 (150-375); Red Blood Count 3.73 M/mm3 (4.6-6.20); Red Cell Distribution Width 13.9 % (11.5-14.5); White Blood Count 6.4 K/mm3 (4.5-10.0)
[2021-05-27 06:15] LABS: INR 1.2; Prothrombin Time 14.7 Seconds (11.1-14.7)
[2021-05-27 06:38] LABS: Alanine Aminotransferase 21 U/L (4-50); Albumin Level 2.8 g/dL (3.5-5.1); Alkaline Phosphatase 78 U/L (38-126); Anion Gap 5 mmol/L (8-16); Aspartate Amino Transferase 31 U/L (17-59); Bilirubin,Total 0.8 mg/dL (0.2-1.3); Blood Urea Nitrogen 24 mg/dL (9-20); CRP 4.6 mg/dL (<1.0); Carbon Dioxide 29 mmol/L (22-30); Chloride 102 mmol/L (98-107); Estimated CRCL calculation 53 ml/min; Estimated Glomerular Filt Rate > 60; Glucose 122 mg/dL (65-110); Potassium 3.8 mmol/L (3.4-5.0); Sodium 136 mmol/L (137-145)
[2021-05-27 08:22] LABS: Glucose Point of Care 106 mg/dl (65-105)
[2021-05-27] MEDS: REMDESIVIR 100 MG/NS 250 ML 100 MG/250 ML BAG 250 MG IVPB (09:07)
[2021-05-27] MEDS: GABAPENTIN 300 MG CAPSULE 600 MG PO ×2 (09:11→17:44)
[2021-05-27] MEDS: AMIODARONE HCL 100 MG TABLET PO (09:11)
[2021-05-27] MEDS: DONEPEZIL HCL 10 MG TABLET PO (09:12)
[2021-05-27] MEDS: METOPROLOL TARTRATE 25 MG TABLET PO (09:12)
[2021-05-27] MEDS: ASPIRIN 81 MG CHEWABLE TABLET PO (09:13)
[2021-05-27] MEDS: PANTOPRAZOLE 40 MG TABLET PO (09:13)
[2021-05-27] MEDS: ATORVASTATIN 40 MG TABLET PO (09:13)
[2021-05-27] MEDS: CLOPIDOGREL BISULFATE 75 MG TABLET PO (09:13)
[2021-05-27] MEDS: QUEtiapine FUMARATE 25 MG TABLET PO (09:14)
[2021-05-27 12:21] LABS: Glucose Point of Care 118 mg/dl (65-105)
--- NOTE | 2021-05-27 15:29 | PCSTNOTE ---
Therapist consulted with JUANITA Hinojosa, who reported that patient is confused, improving in the early afternoon. She stated that he was unable to suck through a straw in the morning but had improved to taking drops of moderately thick liquid from the straw by late morning. She stated that he exhibited no difficulty with this consistency at that time. He had been NPO but allowed Pureed/Moderately Thick liquids starting around lunch time today. This therapist will contact nursing over the weekend to see how he is tolerating. Direct ST is not indicated as this patient is unable to actively participate in swallowing strengthening exercises with the effort required to make a change. He may be placed in direct therapy at a later date.
[2021-05-27 17:12] LABS: Glucose Point of Care 123 mg/dl (65-105)
[2021-05-28] VITALS (16 sets, daily range): BP systolic 141–154; BP diastolic 50–71; PULSE 56–68; RESP 16–20; TEMP 35.8–37.2; O2SAT 96–98
[2021-05-28] MEDS: ALBUTEROL SULFATE NEB 2.5 MG/0.5 ML INH 5 MG INHALATION ×4 (02:43→19:52)
[2021-05-28] MEDS: IPRATROPIUM BR 0.02% INH SOLN 0.5 MG/2.5 ML VIAL INHALATION ×3 (02:44→19:51)
[2021-05-28 06:50] LABS: Hematocrit 38.5 % (42.0-52.0); Hemoglobin 12.1 g/dL (14.0-18.0); Mean Corpuscular HGB Conc 31.4 g/dl (32-36); Mean Corpuscular Hemoglobin 31.3 pg (26-34); Mean Corpuscular Volume 99.5 fl (80-100); Mean Platelet Volume 12.3 fl (7.4-10.4); Platelet Count Result 113 k/mm3 (150-375); Red Blood Count 3.87 M/mm3 (4.6-6.20); White Blood Count 6.8 K/mm3 (4.5-10.0)
[2021-05-28 07:04] LABS: Sodium 134 mmol/L (137-145)
[2021-05-28 07:16] LABS: Alanine Aminotransferase 21 U/L (4-50); Albumin Level 2.9 g/dL (3.5-5.1); Alkaline Phosphatase 79 U/L (38-126); Anion Gap 4 mmol/L (8-16); Aspartate Amino Transferase 30 U/L (17-59); Bilirubin,Total 0.7 mg/dL (0.2-1.3); Blood Urea Nitrogen 27 mg/dL (9-20); CRP 3.3 mg/dL (<1.0); Calcium 7.8 mg/dL (8.4-10.2); Carbon Dioxide 27 mmol/L (22-30); Chloride 103 mmol/L (98-107); Estimated CRCL calculation 58 ml/min; Estimated Glomerular Filt Rate > 60; Glucose 102 mg/dL (65-110); Potassium 3.9 mmol/L (3.4-5.0)
[2021-05-28 07:57] LABS: Glucose Point of Care 91 mg/dl (65-105)
[2021-05-28] MEDS: GABAPENTIN 300 MG CAPSULE 600 MG PO ×2 (08:51→17:01)
[2021-05-28] MEDS: ATORVASTATIN 40 MG TABLET PO (08:51)
[2021-05-28] MEDS: METOPROLOL TARTRATE 25 MG TABLET PO (08:51)
[2021-05-28] MEDS: QUEtiapine FUMARATE 25 MG TABLET PO (08:52)
[2021-05-28] MEDS: PANTOPRAZOLE 40 MG TABLET PO (08:52)
[2021-05-28] MEDS: ASPIRIN 81 MG CHEWABLE TABLET PO (08:52)
[2021-05-28] MEDS: CLOPIDOGREL BISULFATE 75 MG TABLET PO (08:52)
[2021-05-28] MEDS: AMIODARONE HCL 100 MG TABLET PO (08:52)
[2021-05-28] MEDS: DONEPEZIL HCL 10 MG TABLET PO (08:52)
[2021-05-28 11:18] LABS: Glucose Point of Care 116 mg/dl (65-105)
[2021-05-28 16:29] LABS: Glucose Point of Care 138 mg/dl (65-105)
[2021-05-28 20:28] LABS: Glucose Point of Care 139 mg/dl (65-105)
[2021-05-29] VITALS (15 sets, daily range): BP systolic 145–188; BP diastolic 61–69; PULSE 51–70; RESP 14–20; TEMP 36–36.6; O2SAT 90–100
[2021-05-29] MEDS: ALBUTEROL SULFATE NEB 2.5 MG/0.5 ML INH 5 MG INHALATION ×4 (01:56→20:32)
[2021-05-29] MEDS: IPRATROPIUM BR 0.02% INH SOLN 0.5 MG/2.5 ML VIAL INHALATION ×4 (01:56→20:33)
[2021-05-29 06:41] LABS: Hematocrit 39.4 % (42.0-52.0); Hemoglobin 12.4 g/dL (14.0-18.0); Mean Corpuscular HGB Conc 31.5 g/dl (32-36); Mean Corpuscular Hemoglobin 30.8 pg (26-34); Mean Corpuscular Volume 97.8 fl (80-100); Platelet Count Result 134 k/mm3 (150-375); Red Blood Count 4.03 M/mm3 (4.6-6.20); Red Cell Distribution Width 13.8 % (11.5-14.5); White Blood Count 9.5 K/mm3 (4.5-10.0)
[2021-05-29 07:07] LABS: Alanine Aminotransferase 21 U/L (4-50); Albumin Level 3.1 g/dL (3.5-5.1); Alkaline Phosphatase 93 U/L (38-126); Anion Gap 4 mmol/L (8-16); Aspartate Amino Transferase 29 U/L (17-59); Bilirubin,Total 0.5 mg/dL (0.2-1.3); Blood Urea Nitrogen 25 mg/dL (9-20); CRP 2.8 mg/dL (<1.0); Calcium 8.1 mg/dL (8.4-10.2); Carbon Dioxide 30 mmol/L (22-30); Chloride 101 mmol/L (98-107); Estimated CRCL calculation 51 ml/min; Estimated Glomerular Filt Rate > 60; Glucose 90 mg/dL (65-110); Sodium 135 mmol/L (137-145)
[2021-05-29 08:12] LABS: Glucose Point of Care 90 mg/dl (65-105)
[2021-05-29] MEDS: QUEtiapine FUMARATE 25 MG TABLET PO (08:49)
[2021-05-29] MEDS: GABAPENTIN 300 MG CAPSULE 600 MG PO ×2 (08:49→17:05)
[2021-05-29] MEDS: AMIODARONE HCL 100 MG TABLET PO (08:50)
[2021-05-29] MEDS: METOPROLOL TARTRATE 25 MG TABLET PO (08:50)
[2021-05-29] MEDS: ATORVASTATIN 40 MG TABLET PO (08:50)
[2021-05-29] MEDS: PANTOPRAZOLE 40 MG TABLET PO (08:50)
[2021-05-29] MEDS: ASPIRIN 81 MG CHEWABLE TABLET PO (08:50)
[2021-05-29] MEDS: CLOPIDOGREL BISULFATE 75 MG TABLET PO (08:50)
[2021-05-29] MEDS: DONEPEZIL HCL 10 MG TABLET PO (08:50)
[2021-05-29 11:55] LABS: Glucose Point of Care 121 mg/dl (65-105)
[2021-05-29 17:03] LABS: Glucose Point of Care 187 mg/dl (65-105)
[2021-05-29 21:04] LABS: Glucose Point of Care 170 mg/dl (65-105)
[2021-05-30] VITALS (11 sets, daily range): BP systolic 149–169; BP diastolic 60–69; PULSE 52–68; RESP 15–20; TEMP 36.1–36.6; O2SAT 93–100
[2021-05-30] MEDS: IPRATROPIUM BR 0.02% INH SOLN 0.5 MG/2.5 ML VIAL INHALATION ×2 (02:46→07:59)
[2021-05-30] MEDS: ALBUTEROL SULFATE NEB 2.5 MG/0.5 ML INH 5 MG INHALATION ×2 (02:46→07:59)
[2021-05-30 05:57] LABS: Hematocrit 37.9 % (42.0-52.0); Immature Platelet Fraction Pct 9.5 % (0.9-11.2); Mean Corpuscular HGB Conc 31.7 g/dl (32-36); Mean Corpuscular Hemoglobin 30.8 pg (26-34); Mean Corpuscular Volume 97.2 fl (80-100); Mean Platelet Volume 11.8 fl (7.4-10.4); Platelet Count Result 131 k/mm3 (150-375); Red Cell Distribution Width 13.6 % (11.5-14.5)
[2021-05-30 06:08] LABS: Alanine Aminotransferase 23 U/L (4-50); Albumin Level 2.9 g/dL (3.5-5.1); Alkaline Phosphatase 98 U/L (38-126); Anion Gap 3 mmol/L (8-16); Aspartate Amino Transferase 29 U/L (17-59); Bilirubin,Total 0.7 mg/dL (0.2-1.3); Blood Urea Nitrogen 25 mg/dL (9-20); Carbon Dioxide 31 mmol/L (22-30); Chloride 100 mmol/L (98-107); Estimated CRCL calculation 51 ml/min; Estimated Glomerular Filt Rate > 60; Glucose 94 mg/dL (65-110); Potassium 4.3 mmol/L (3.4-5.0); Sodium 134 mmol/L (137-145)
[2021-05-30 08:00] LABS: Glucose Point of Care 102 mg/dl (65-105)
[2021-05-30] MEDS: CLOPIDOGREL BISULFATE 75 MG TABLET PO (08:54)
[2021-05-30] MEDS: ATORVASTATIN 40 MG TABLET PO (08:54)
[2021-05-30] MEDS: ASPIRIN 81 MG CHEWABLE TABLET PO (08:54)
[2021-05-30] MEDS: AMIODARONE HCL 100 MG TABLET PO (08:54)
[2021-05-30] MEDS: PANTOPRAZOLE 40 MG TABLET PO (08:55)
[2021-05-30] MEDS: METOPROLOL TARTRATE 25 MG TABLET PO (08:55)
[2021-05-30] MEDS: GABAPENTIN 300 MG CAPSULE 600 MG PO (08:55)
[2021-05-30] MEDS: QUEtiapine FUMARATE 25 MG TABLET PO (08:55)
[2021-05-30] MEDS: DONEPEZIL HCL 10 MG TABLET PO (08:55)
--- NOTE | 2021-05-30 11:27 | PM.DS ---
DS: Admitting Diagnosis Discharge Date 05/30/2021 Admitting Diagnosis generalized weakness DS: Discharge Diagnosis Discharge Diagnosis (1) Pneumonia due to COVID-19 virus: Code(s): U07.1 - COVID-19; J12.82 - Pneumonia due to coronavirus disease 2018 Status: Acute (2) Acute respiratory failure with hypoxia: Code(s): J96.01 - Acute respiratory failure with hypoxia Status: Acute (3) Acute kidney injury: Code(s): N17.9 - Acute kidney failure, unspecified Status: Acute (4) Dysphagia: Onset Date: ~2019 Qualifiers: Dysphagia type: unspecified Qualified Code(s): R13.10 - Dysphagia, unspecified Code(s): R13.10 - Dysphagia, unspecified Status: Acute (5) Elevated troponin: Code(s): R77.8 - Other specified abnormalities of plasma proteins Status: Acute DS: Summary Hospital Course Reason for hospitalization: Chief Complaint: Weakness Narrative: 85-year-old male with past medical history of atrial fibrillation, dementia, hyperlipidemia, hypertension, GERD and dysphagia who presents to the ER from home via EMS due to weakness. The patient had been brought to the ER on the due to weakness. Labs at that time were unremarkable. The patient received some fluids and was ambulated and went home. When he returned home he was progressively more weak and was unable to stand. He is sad in the same chair and soiled himself. When the family could not get him up to change in they called EMS to bring him back into the ER. Repeat chest x-ray today demonstrated I new infiltrates complicating patient's prior findings of asbestosis. The family report reports that the patient was not coughing or having any respiratory symptoms. The patient contradicts this and states that he has been coughing more than usual. He denies any fevers or chills but patient did have a temperature of 99.3? on arrival to the intermediate unit. The patient has received his 2 COVID vaccines and his booster. The patient his and the patient's daughter and son-in-law all live in the same home. The only outside exposure they really have his the 's bridge club. The patient tested positive for COVID on his 2nd visit to the ER. He was not test the 1st visit. After the patient tested positive all the family members took at home test and have all tested positive as well. Patient denies any nausea or vomiting. At the time of my evaluation the patient is alert orient x3 but thinks the president is [place]. The daughter does report that the patient does cough and have episodes of choking with eating. During his last hospitalization in 2019 the patient was noted to have dysphagia and had failed modified barium swallow. The patient adamantly refused having a G-tube or NG placed for long-term nutrition. The patient was initially placed on a modified diet which than the patient also refused to eat or drink. Subsequently patient was discharged back home on a regular consistency diet. Hospital Course: 05/23/2021 feeling better. Has some cough. Generalized weakness present. No shortness of breath. Discussed with nursing staff 05/24/2021 agitated this morning confused. Trying to call 911 from his phone. He is off oxygen now. Discussed with the nursing staff. 05/25/2021 interval history: patient 85-year-old male COVID positive being treated with remdesivir 2/5 and dexamethasone 05/05 patient remains confused, he had a witnessed aspiration while eating chest x-ray suspicious for aspiration pneumonia will start the patient Zosyn to cover for anaerobics as well and continue azithromycin, will give the patient NPO will have a swallow study will continue to monitor 05/26/2021 interval history: patient 85-year-old male COVID positive being treated with remdesivir 3/5 and dexamethasone 10 patient remains confused, on 05/25 he had a witnessed aspiration while eating chest x-ray suspicious for aspiration pneumonia sta
[2021-05-30 12:00] LABS: Glucose Point of Care 116 mg/dl (65-105)
== END 2021-05-30 13:55 | DRG 177 ==
LOC: ANHED 22:55 → ANHIMU 23:48 → ANH3MEDSUR 05-23 23:26 → ANHIMU 05-31 10:46
PROVIDERS: Internal Medicine; Admitting Provider Internal Medicine; Emergency Provider Emergency Medicine; PCP Internal Medicine; Visit Provider Family Medicine
DX: U07.1 COVID-19 (principal); J12.82 Pneumonia due to coronavirus disease 2019; J69.0 Pneumonitis due to inhalation of food and vomit; J96.01 Acute respiratory failure with hypoxia; N17.9 Acute kidney failure, unspecified; R13.10 Dysphagia, unspecified; D69.6 Thrombocytopenia, unspecified; D64.9 Anemia, unspecified; E11.42 Type 2 diabetes mellitus with diabetic polyneuropathy; E11.51 Type 2 diabetes mellitus with diabetic peripheral angiopathy without gangrene; E78.5 Hyperlipidemia, unspecified; F41.8 Other specified anxiety disorders; F03.90 Unspecified dementia, unspecified severity, without behavioral disturbance, psychotic disturbance, mood disturbance, and anxiety; I48.91 Unspecified atrial fibrillation; I25.10 Atherosclerotic heart disease of native coronary artery without angina pectoris; I10 Essential (primary) hypertension; J92.9 Pleural plaque without asbestos; K21.9 Gastro-esophageal reflux disease without esophagitis; M19.90 Unspecified osteoarthritis, unspecified site; R77.8 Other specified abnormalities of plasma proteins; Z77.090 Contact with and (suspected) exposure to asbestos; Z86.73 Personal history of transient ischemic attack (TIA), and cerebral infarction without residual deficits; Z95.1 Presence of aortocoronary bypass graft; Z96.652 Presence of left artificial knee joint; Z90.79 Acquired absence of other genital organ(s); Z85.46 Personal history of malignant neoplasm of prostate; Z87.891 Personal history of nicotine dependence; Z79.82 Long term (current) use of aspirin; Z79.02 Long term (current) use of antithrombotics/antiplatelets
CPT/HCPCS: 36415; 51701; 70450; 71045; 71046; 80048; 80053; 81001; 82565; 82728; 82948; 83605; 83735; 84450; 84460; 84484; 85025; 85027; 85055; 85380; 85610; 86140; 87040; 92610; 93005; 94640; 96360; 96361; 96365; 96367; 96375; 97110; 97116; 97161; 97166; 97530; 99284; 99285; A9270; C9803; G0378; J0248; J0456; J0696; J1100; J2543; J7030; J7040; U0003; U0005

== ENCOUNTER 2021-10-10 22:23 | Observation (INO) | payer MEDICARE, SELFPAY ==
--- NOTE | ~2021-10-10 | XR_ITS ---
EXAMINATION: XR chest 2V DATE: 10/10/2021 23:04 INDICATION: Weakness and shortness of breath TECHNIQUE: frontal and lateral views of the chest were obtained. COMPARISON: Chest radiograph dated 05/30/2021 and 05/21/2021 FINDINGS: Chronic opacities projecting over the right hemithorax which appear to correspond to calcified pleura l plaques which are without significant interval change accounting for differences in technique. Daniel tional linear calcified pleural plaque along the left hemidiaphragm. Calcified nodules in the left mi dlung zone consistent with old granulomatous disease. The cardiomediastinal silhouette is normal. Med rachell sternotomy wires and mediastinal surgical clips are seen, likely from prior coronary artery bypas s grafting. Old healed left seventh rib fracture. There are bridging osteophytes at multiple levels i n the spine, consistent with diffuse idiopathic skeletal hyperostosis (DISH). IMPRESSION: 1. No significant interval change accounting for differences in bilateral calcified pleural plaques s ignificantly more extensive on the right. 2. No definitive acute cardiopulmonary disease although sensitivity is diminished by the background c hronic lung disease. Reviewed, dictated and finalized at location A. IMPRESSION: 1. No significant interval change accounting for differences in bilateral calci fied pleural plaques significantly more extensive on the right. 2. No definitive acute cardiopulmonary disease although sensitivity is diminish ed by the background chronic lung disease.
[2021-10-10 22:21] VITALS: BP 120/59; PULSE 63; RESP 16; TEMP 36.8; O2SAT 96
--- NOTE | 2021-10-10 22:52 | ECG_ITS ---
Measurements Intervals [place] Rate: 65 P: -23 MA: 230 QRS: -62 QRSD: 129 T: 51 QT: 450 QTc: 471 Interpretive Statements SINUS RHYTHM WITH FIRST DEGREE AV BLOCK POSSIBLE RIGHT VENTRICULAR CONDUCTION DELAY [RSR (QR) IN V1/V2] LEFT ANTERIOR FASCICULAR BLOCK [QRS AXIS <= -45, QR IN I, RS IN II] POSSIBLE ANTERIOR MYOCARDIAL INFARCTION , PROBABLY OLD [30 ms Q WAVE IN V3/V4, OR R < 0.2 mV IN V4] ABNORMAL ECG COMPARED TO ECG 05/22/2021 22:09:38 LEFT ANTERIOR FASCICULAR BLOCK NOW PRESENT Electronically Signed On 10-11-2021 8:47:41 CDT by Tylor Salomon M.D.
[2021-10-10 22:57] VITALS: PULSE 69; O2SAT 96
--- NOTE | 2021-10-10 22:58 | PC.NURSE ---
Patient off unit to CT.
[2021-10-10 23:02] LABS: Appearance Urine Clear (Clear); Bilirubin Urine Negative (Negative); Blood Urine Negative (Negative); Color Urine Yellow (Yellow); Glucose Urine UA Negative (Negative); Ketones Urine Trace mg/dL (Negative); Leukocyte Esterase Ur Negative LEU/UL (Negative); Nitrate Urine Negative (Negative); Protein Urine Trace mg/dL (Negative); Urobilinogen Urine 0.2 mg/dL (<2.0); pH Urine 5.5 (5.0-9.0)
[2021-10-10 23:03] LABS: Basophils Percent Auto 0.4 % (0.2-1.2); Eosinophils Percent Auto 0.4 % (0-4.4); Hematocrit 40.3 % (42.0-52.0); Hemoglobin 12.7 g/dL (14.0-18.0); Immature Granulocyte Absolute 0.01 K/mm3 (0.00-0.031); Immature Granulocyte Percent A 0.1 % (0-0.5); Lymphocytes Absolute Auto 0.85 K/mm3 (0.9-3.2); Lymphocytes Percent Auto 12.1 % (18.3-44.2); Mean Corpuscular HGB Conc 31.5 g/dl (32-36); Mean Corpuscular Hemoglobin 30.7 pg (26-34); Mean Corpuscular Volume 97.3 fl (80-100); Mean Platelet Volume 11.9 fl (7.4-10.4); Monocytes Absolute Auto 0.6 K/mm3 (0.1-0.6); Monocytes Percent Auto 8.8 % (2.6-8.5); Neutrophils Absolute Auto 5.5 K/mm3 (1.3-6.7); Neutrophils Percent Auto 78.2 % (45.5-73.1); Platelet Count Result 128 k/mm3 (150-375); Red Blood Count 4.14 M/mm3 (4.6-6.20); Red Cell Distribution Width 13.1 % (11.5-14.5)
[2021-10-10 23:08] LABS: Bacteria Urine Trace /hpf; Hyaline Casts Urine 15-19 /lpf; Mucus Urine Rare /lpf; RBC Urine 0-2 /hpf (0-2); Squamous Epithelial Cell Urine Rare /hpf (Few); WBC Urine 0-3 /hpf
[2021-10-10 23:13] LABS: Alanine Aminotransferase 11 U/L (6-50); Albumin Level 4.1 g/dL (3.5-5.1); Alkaline Phosphatase 137 U/L (38-126); Anion Gap 9 mmol/L (8-16); Aspartate Amino Transferase 24 U/L (17-59); Bilirubin,Total 0.7 mg/dL (0.2-1.3); Blood Urea Nitrogen 26 mg/dL (9-20); Calcium 8.8 mg/dL (8.4-10.2); Carbon Dioxide 29 mmol/L (22-30); Chloride 98 mmol/L (98-107); Estimated CRCL calculation 36 ml/min; Estimated Glomerular Filt Rate 45; Glucose 107 mg/dL (65-110); Potassium 4.5 mmol/L (3.4-5.0); Sodium 136 mmol/L (137-145)
[2021-10-10 23:14] LABS: Lactic Acid Reflex 1.6 mmol/L (0.7-2.0)
[2021-10-10 23:15] LABS: Add Urine Microscopic? YES
--- NOTE | 2021-10-10 23:28 | ED.WEAKNESS ---
HPI - Weakness General Chief complaint: Weakness Stated complaint: LETHARGY, POSS ASPIRATION Time Seen by Provider: 10/10/21 22:54 History of Present Illness HPI Narrative: 86-year-old male brought in and is accompanied by family. He brought in secondary to generalized weakness. Family feels like he is dehydrated. He been through this before. They state he likes to sit outside in the sun . He does not drink enough fluids. He also has some diarrhea for couple days which probably exacerbated this and even made it worse. No chills or fevers. No cough or congestion. He did have COVID earlier this year. He is extremely debilitated but is able to get around with a walker. They were concerned about him today because he was not responsive to his baseline status subsequently had him sent to the emergency room. Related Data Home Medications Medication Instructions Recorded Confirmed amiodarone 100 mg tablet 100 mg PO DAILY 03/21/19 05/23/21 aspirin 325 mg tablet 325 mg PO DAILY 03/21/19 05/23/21 atorvastatin 40 mg tablet 40 mg PO DAILY 03/21/19 05/23/21 clopidogrel 75 mg tablet 75 mg PO DAILY 03/21/19 05/23/21 donepezil 10 mg tablet 10 mg PO DAILY 03/21/19 05/23/21 gabapentin 600 mg tablet 600 mg PO BID 03/21/19 05/23/21 metoprolol tartrate 25 mg tablet 25 mg PO DAILY 03/21/19 05/23/21 quetiapine 25 mg tablet 25 mg PO DAILY 03/21/19 05/23/21 furosemide 20 mg tablet 20 mg PO DAILY 05/23/21 05/23/21 pantoprazole 40 mg tablet,delayed 40 mg PO DAILY 05/23/21 05/23/21 release Allergies Allergy/AdvReac Type Severity Reaction Status Date / Time No Known Allergies Allergy Verified 03/21/19 09:40 Review of Systems Review of Systems: CONSTITUTIONAL: Denies fever, chills, or sweats. Extremely weak and fatigue EYES: Denies visual changes, redness, or discharge. ENT: Denies rhinorrhea, congestion, sore throat, or otalgia. CARDIOVASCULAR: Denies chest pain, palpitations, or edema. RESPIRATORY: Denies cough or dyspnea. GASTROINTESTINAL: Denies abdominal pain, nausea, vomiting. Has some diarrhea couple days ago GENITOURINARY: Denies dysuria or hematuria. SKIN: Denies rash or itching. MUSCULOSKELETAL: Denies back pain, joint pain, or myalgia. NEUROLOGIC: Denies headache, numbness, or weakness. PSYCHIATRIC: Denies anxiety or depression. [facility] Past Medical History Medical History Asbestosis With chronic plaquing noted on chest x-ray. Chronic anemia With chronic mild thrombocytopenia as well. 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 No residual deficits. Depression with anxiety Diet-controlled diabetes mellitus Hemoglobin A1c was 5.4 in June 2017. Dysphagia (~2019) Patient refuses G-tube despite continued aspiration GERD (gastroesophageal reflux disease) Hyperlipidemia Hypertension Neuropathy Osteoarthritis Paroxysmal atrial fibrillation Peripheral vascular disease With balloon angioplasty to popliteal artery above the right knee [place] [address] Gamble. Prostate cancer Vivid dream Apparently this is been ongoing for many decades, and daughter describes that he has ?violent and vivid dreams.? Surgical History Surgical History Status post four vessel coronary artery bypass May [address] Guerrero at [facility]. Status post left knee replacement Status post prostatectomy Status post tonsillectomy Family History Family History Father Alcoholism Congestive heart failure Social History Social History Social History: Mr. Leyva is and lives in [place] with his . His daughter and son-in-law have moved in to help. 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 He smoked 2 packs of cigarettes per day for
--- NOTE | 2021-10-10 23:34 | PC.NURSE ---
Patient report given to JUANITA Chadwick. All questions answered and care of patient transferred.
[2021-10-10 23:35] VITALS: PULSE 60; RESP 16; O2SAT 94
--- NOTE | 2021-10-10 23:41 | PC.NURSE ---
Unsuccessful IV attempts x3.
--- NOTE | 2021-10-10 23:57 | PM.IMHP ---
H&P: HPI History of Present Illness Date/Time: 10/10/21 23:57 Chief Complaint: altered mental status Narrative: This is an 86-year-old male past medical history significant for atrial fibrillation rate controlled, dementia, cerebrovascular accident, on Plavix, gastroesophageal reflux disease, dyslipidemia, neuropathy, osteoarthritis, peripheral vascular disease. patient was brought to the emergency room for evaluation due to family concerns after patient was not been his usual. apparently patient had been having diarrhea for the last few days or so and decreased oral intake. history taking is on how limited due to patient's underlying dementia however he denies any chills, fevers, rigors, nausea, vomiting, belly pain. Preliminary workup was significant for chemistry panel creatinine 1.5 BUN 26. chest x-ray with right lower lobe of opacity. Patient is been admitted for further evaluation management and treatment. Review of Systems Review of Systems: DIARRHEA, ALTERED MENTAL STATUS. ROS unobtainable: Yes unobtainable due to mental status ( obtundation) FORMERLY [facility], [facility] Past Medical History Medical History (Updated 10/11/21 @ 04:00 by Hood Kim MD) Asbestosis With chronic plaquing noted on chest x-ray. Chronic anemia With chronic mild thrombocytopenia as well. 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 No residual deficits. Depression with anxiety Diet-controlled diabetes mellitus Hemoglobin A1c was 5.4 in June 2017. Dysphagia (~2019) Patient refuses G-tube despite continued aspiration GERD (gastroesophageal reflux disease) Hyperlipidemia Hypertension Neuropathy Osteoarthritis Paroxysmal atrial fibrillation Peripheral vascular disease With balloon angioplasty to popliteal artery above the right knee [place] [address] Gamble. Prostate cancer Vivid dream Apparently this is been ongoing for many decades, and daughter describes that he has ?violent and vivid dreams.? Surgical History Surgical History Status post four vessel coronary artery bypass May [address] Guerrero at [facility]. Status post left knee replacement Status post prostatectomy Status post tonsillectomy Family History Family History Father Alcoholism Congestive heart failure Social History Social History Social History: Mr. Leyva is and lives in [place] with his . His daughter and son-in-law have moved in to help. 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 He smoked 2 packs of cigarettes per day for about 15 years and quit 1973. He has not drank since 1998. His daughter, Brittani, is his power of scalp specialist. His daughter thinks that the patient was supposed to be a DNR but she wants to confer with family members as the decision to his code status was made when he was ill a couple of years ago. Daughter does report to nursing staff that the patient has been declining in function recently. Smoking status: Former smoker Alcohol intake: never Substance use: never Substance use type: does not use Gender identity (if verbalized by the patient): Male Spiritual care concerns: No Agree to blood products: Yes Meds Home Medications and Allergies Home Medications Medication Instructions Recorded Confirmed Type amiodarone 100 mg tablet 100 mg PO DAILY 03/21/19 05/23/21 History aspirin 325 mg tablet 325 mg PO DAILY 03/21/19 05/23/21 History atorvastatin 40 mg tablet 40 mg PO DAILY 03/21/19 05/23/21 History clopidogrel 75 mg tablet 75 mg PO DAILY 03/21/19 05/23/21 History donepezil 10 mg tablet 10 mg PO DAILY 03/21/19 05/23/21 History gabapentin 600 mg tablet 600 mg PO BID 03/21/19 05/23/21 History metoprolol tartrate 25 mg tablet 25 mg PO DAILY 03/21/19 05/23/21 Hist
[2021-10-11] MEDS: SODIUM CHLORIDE 0.9% IV 1,000 ML 999 ML IV CONT (00:04)
[2021-10-11 01:44] LABS: SARS-CoV-2 RNA PCR Negative
--- NOTE | 2021-10-11 02:46 | PC.NURSE ---
THis RN called 2 times to speak with Bianca GRANT THE CHARGE NURSE STATED HER [employer] IS AND SHE IS NOT AROUND.
[2021-10-11 03:02] VITALS: BP 110/79; PULSE 72; RESP 18; O2SAT 99
--- NOTE | 2021-10-11 03:02 | ADMGEN ---
This patient, Tommy Leyva, was admitted to [facility] S[facility] Room 307-02. Patient/family oriented to hospital policies and general routines including ID bracelet, bed and alarms, visiting hours, pain management, procedures, bathroom and other care routines, personal items, smoking policy, room service/diet, and visiting hours. Information on how to activate the Rapid Response Team has been discussed. Patient/Family are encouraged to report perceived risks to care and to ask questions if they do not understand what they are told or what they should do.
[2021-10-11 03:30] VITALS: BP 130/56; PULSE 60; RESP 18; TEMP 36.1; O2SAT 100
[2021-10-11] MEDS: SODIUM CHLORIDE 0.9% IV 1,000 ML 65 ML IV CONT (04:23)
[2021-10-11 07:12] LABS: Anion Gap 8 mmol/L (8-16); Blood Urea Nitrogen 26 mg/dL (9-20); Calcium 8.5 mg/dL (8.4-10.2); Carbon Dioxide 28 mmol/L (22-30); Chloride 100 mmol/L (98-107); Estimated CRCL calculation 34 ml/min; Estimated Glomerular Filt Rate 48; Glucose 88 mg/dL (65-110); Potassium 3.9 mmol/L (3.4-5.0); Sodium 136 mmol/L (137-145)
[2021-10-11 09:49] VITALS: O2SAT 100
--- NOTE | 2021-10-11 09:58 | PM.IMPN ---
Progress Note: A&P Assessment and Plan (1) NORMA (acute kidney injury): Code(s): N17.9 - Acute kidney failure, unspecified Status: Acute Assessment and Plan: likely secondary to be pre renal azotemia patient having diarrhea on also on Lasix gentle hydration will hold Lasix (2) Dysphagia: Onset Date: ~2019 Qualifiers: Dysphagia type: unspecified Qualified Code(s): R13.10 - Dysphagia, unspecified Code(s): R13.10 - Dysphagia, unspecified Status: Acute Assessment and Plan: refuses feeding tube chronic aspiration modified diet (3) Paroxysmal atrial fibrillation: Code(s): I48.0 - Paroxysmal atrial fibrillation Status: Acute Assessment and Plan: rate controlled (4) Aspiration pneumonia: Qualifiers: Aspiration pneumonia type: unspecified Laterality: bilateral Lung location: unspecified part of lung Qualified Code(s): J69.0 - Pneumonitis due to inhalation of food and vomit Code(s): J69.0 - Pneumonitis due to inhalation of food and vomit Status: Acute Assessment and Plan: chronic aspiration pneumonia (5) Generalized weakness: Code(s): R53.1 - Weakness Status: Acute Assessment and Plan: likely secondary to poor per orally intake and dehydration PT OT (6) Chronic anemia: Code(s): D64.9 - Anemia, unspecified Status: Acute Assessment and Plan: unchanged (7) Asbestosis: Code(s): 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 Status: Acute Assessment and Plan: patient with chronic opacity seen in chest x-ray Subjective Date/time seen: 10/11/21 09:58 No complaints this morning Exam Const: General: comfortable, no acute distress, well developed, ill appearing acutely and patient obtunded Nutritional Appearance: thin Orientation/consciousness: oriented to person, oriented to place and patient obtunded HENMT: Head: normal to inspection, normocephalic and atraumatic Ears: hearing grossly normal bilaterally Face and sinus: normal facial exam Eyes: General: appearance normal, both eyes and all related structures Pupils: Equal, round and reactive pupils present EOM: EOMs intact bilaterally Neck: Neck: full ROM, no lymphadenopathy and no JVD Thyroid: thyroid normal Lymphatic: no lymphadenopathy noted Resp: Effort & Inspection: normal respiratory effort and able to speak in complete sentences Auscultation: clear to auscultation bilaterally Cardio: Jugular venous distension: no JVD Rate: regular rate Rhythm: regular rhythm Heart sounds: S1 normal heart sound present and S2 normal heart sound present GI: Inspection: normal to inspection : General: Yes deferred Skin: Rashes: no rashes Wounds: no wounds Neuro: General: oriented to person, oriented to place, CN's II-XI intact bilaterally, patient obtunded and Unable to assess gait Cranial nerves: Yes CN's II-XII intact bilaterally and Yes Equal, round and reactive pupils present Cognition (Neuro): normal cognition Speech: normal speech Gait exam (Neuro): Unable to assess gait Motor exam (neuro): 5/5 motor strength present throughout Extrem: General: normal to inspection, full ROM, no joint enlargement and no pedal edema Objective Data Vital Signs Vital Signs: Vital Signs - 24 hr 10/10/21 22:21 10/10/21 22:57 10/10/21 22:57 Temperature 98.3 F Pulse Rate 63 69 Respiratory Rate 16 Blood Pressure 120/59 L Pulse Oximetry 96 96 Oxygen Delivery Room Air Room Air 10/10/21 23:35 10/11/21 03:02 10/11/21 03:30 Temperature 97 F L Pulse Rate 60 72 60 Respiratory Rate 16 18 18 Blood Pressure 110/79 130/56 L Pulse Oximetry 94 99 100 Oxygen Delivery 10/11/21 09:49 Temperature Pulse Rate Respiratory Rate Blood Pressure Pulse Oximetry 100 Oxygen Delivery Room Air Intake/Output Intake/Output: Intake & Output 10/08/21 10/09/21 10/10/21
[2021-10-11] MEDS: ASPIRIN 325 MG TABLET PO (10:25)
[2021-10-11] MEDS: QUEtiapine FUMARATE 25 MG TABLET PO (10:26)
[2021-10-11] MEDS: GABAPENTIN 300 MG CAPSULE 600 MG PO ×2 (10:26→20:18)
[2021-10-11] MEDS: DONEPEZIL HCL 10 MG TABLET PO (10:26)
[2021-10-11] MEDS: PANTOPRAZOLE 40 MG TABLET PO (10:26)
[2021-10-11] MEDS: CLOPIDOGREL BISULFATE 75 MG TABLET PO (10:26)
[2021-10-11] MEDS: predniSONE 10 MG TABLET PO (10:27)
[2021-10-11 10:29] VITALS: PULSE 54
[2021-10-11] MEDS: AMIODARONE HCL 100 MG TABLET PO (10:29)
[2021-10-11] MEDS: METOPROLOL TARTRATE 25 MG TABLET PO (10:29)
[2021-10-11 14:00] VITALS: BP 136/57; PULSE 52; TEMP 36.5
--- NOTE | 2021-10-11 16:32 | PC.NURSE ---
Pt noncompliant with IV teaching to leave arm straight. Pt met with Dr. Miner and Dr. Hogan. Pt compliant with other treatment. Pt had echo done this AM. Pt has home medication in med drawer and chart was labeled accordingly. Will continue to monitor pt.
--- NOTE | 2021-10-11 16:34 | PC.NURSE ---
Pt is compliant with care. Pt took medication just fine. Pt was seen by PT and OT today. Pt being evaluated for placement in rehab facility or penitentiary. Pt not able to remember to drink fluids at home which brings him into the hospital. Pt tolerated activity and is up in chair with chair alarm. Pt is on thickened liquids and level 5 diet. Pt tolerating well. Pt unable to feel when soiled. Will continue to monitor pt.
[2021-10-11 22:00] VITALS: BP 121/60; PULSE 60; RESP 16; TEMP 36.2; O2SAT 98
[2021-10-12] MEDS: SODIUM CHLORIDE 0.9% IV 1,000 ML 65 ML IV CONT (03:21)
[2021-10-12 06:00] VITALS: BP 154/61; PULSE 55; RESP 16; TEMP 36.2; O2SAT 98
[2021-10-12 06:53] LABS: Anion Gap 6 mmol/L (8-16); Blood Urea Nitrogen 22 mg/dL (9-20); Calcium 8.3 mg/dL (8.4-10.2); Carbon Dioxide 24 mmol/L (22-30); Chloride 104 mmol/L (98-107); Estimated CRCL calculation 42 ml/min; Estimated Glomerular Filt Rate > 60; Glucose 97 mg/dL (65-110); Potassium 3.8 mmol/L (3.4-5.0); Sodium 134 mmol/L (137-145)
[2021-10-12 08:40] VITALS: PULSE 66
[2021-10-12] MEDS: CLOPIDOGREL BISULFATE 75 MG TABLET PO (08:40)
[2021-10-12] MEDS: predniSONE 10 MG TABLET PO (08:40)
[2021-10-12] MEDS: AMIODARONE HCL 100 MG TABLET PO (08:40)
[2021-10-12] MEDS: PANTOPRAZOLE 40 MG TABLET PO (08:40)
[2021-10-12] MEDS: DONEPEZIL HCL 10 MG TABLET PO (08:40)
[2021-10-12] MEDS: METOPROLOL TARTRATE 25 MG TABLET PO (08:40)
[2021-10-12] MEDS: GABAPENTIN 300 MG CAPSULE 600 MG PO ×2 (08:40→20:26)
[2021-10-12] MEDS: ASPIRIN 325 MG TABLET PO (08:40)
[2021-10-12] MEDS: QUEtiapine FUMARATE 25 MG TABLET PO (08:40)
--- NOTE | 2021-10-12 13:48 | PM.IMPN ---
Progress Note: A&P Assessment and Plan (1) NORMA (acute kidney injury): Code(s): N17.9 - Acute kidney failure, unspecified Status: Acute Assessment and Plan: likely secondary to be pre renal azotemia patient having diarrhea on also on Lasix gentle hydration will hold Lasix 10/12/2021 interval history: and 86-year-old male with dementia was brought emergency department with a complaint of diarrhea and poor oral intake upon patient was found to be dehydrated with serum creatinine level of 1.5, we will gently hydrate the patient as patient's serum creatinine is trending down 1.1 and have PT OT evaluate the, patient will benefit from rehab, will continue to monitor. (2) Dysphagia: Onset Date: ~2019 Qualifiers: Dysphagia type: unspecified Qualified Code(s): R13.10 - Dysphagia, unspecified Code(s): R13.10 - Dysphagia, unspecified Status: Acute Assessment and Plan: refuses feeding tube chronic aspiration modified diet (3) Paroxysmal atrial fibrillation: Code(s): I48.0 - Paroxysmal atrial fibrillation Status: Acute Assessment and Plan: rate controlled (4) Aspiration pneumonia: Qualifiers: Aspiration pneumonia type: unspecified Laterality: bilateral Lung location: unspecified part of lung Qualified Code(s): J69.0 - Pneumonitis due to inhalation of food and vomit Code(s): J69.0 - Pneumonitis due to inhalation of food and vomit Status: Acute Assessment and Plan: chronic aspiration pneumonia (5) Generalized weakness: Code(s): R53.1 - Weakness Status: Acute Assessment and Plan: likely secondary to poor per orally intake and dehydration PT OT (6) Chronic anemia: Code(s): D64.9 - Anemia, unspecified Status: Acute Assessment and Plan: unchanged (7) Asbestosis: 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 patient was brought to the emergency room for evaluation due to family concerns after patient? was not been his usual. apparently patient had been having diarrhea for the last few days or so and decreased oral intake.? history taking is on how limited due to patient's? underlying dementia however he denies any chills, fevers, rigors, nausea, vomiting, belly pain. Preliminary workup was significant for? chemistry panel creatinine 1.5 BUN 26. chest x-ray with right lower lobe of opacity. Patient is been admitted for further evaluation management and treatment. 10/12/2021 interval history: and 86-year-old male with dementia was brought emergency department with a complaint of diarrhea and poor oral intake upon patient was found to be dehydrated with serum creatinine level of 1.5, we will gently hydrate the patient as patient's serum creatinine is trending down 1.1 and have PT OT evaluate the, patient will benefit from rehab, will continue to monitor. Review of Systems Review of Systems: ROS unobtainable: Yes unobtainable due to mental status ( obtundation) Exam Narrative: elderly frail Patient is comfortable, NAD HEENT: eyes are clear and none icteric LUNGS: normal respiratory effort ABD: not distended Lower extremities: no edema SKIN: nonjaundiced Neuro: grossly intact. Objective Data Vital Signs Vital Signs: Vital Signs - 24 hr 10/11/21 14:00 10/11/21 15:17 10/11/21 20:00 Temperature 97.7 F Pulse Rate 52 L Respiratory Rate Blood Pressure 136/57 L Pulse Oximetry Oxygen Delivery Room Air Room Air 10/11/21 22:00 09/26
--- NOTE | 2021-10-12 14:43 | PC.NURSE ---
Pt resting most of the day. Pt sleeping up in chair now. Pt able to feed self and swallow thickened liquids with no issue. Pt continues to struggle with keeping arm straight for IV fluids. Will continue to monitor pt.
[2021-10-12 15:05] VITALS: BP 164/60; PULSE 50; RESP 16; TEMP 35.9; O2SAT 100
--- NOTE | 2021-10-12 18:41 | PC.NURSE ---
Pt needed assistance with eating this evening. Pt should be assisted with meals. pt took small bites and had frequent drinks of thickened liquid.
[2021-10-12 22:00] VITALS: BP 141/64; PULSE 89; RESP 16; TEMP 36.1; O2SAT 98
[2021-10-13] MEDS: SODIUM CHLORIDE 0.9% IV 1,000 ML 65 ML IV CONT ×2 (00:25→20:09)
[2021-10-13 06:00] VITALS: BP 159/86; PULSE 58; RESP 16; TEMP 36.2; O2SAT 95
[2021-10-13 06:54] LABS: Hematocrit 37.6 % (42.0-52.0); Mean Corpuscular HGB Conc 31.9 g/dl (32-36); Mean Corpuscular Volume 97.2 fl (80-100); Mean Platelet Volume 12.2 fl (7.4-10.4); Platelet Count Result 108 k/mm3 (150-375); Red Blood Count 3.87 M/mm3 (4.6-6.20); White Blood Count 7.3 K/mm3 (4.5-10.0)
[2021-10-13 07:09] LABS: Anion Gap 4 mmol/L (8-16); Blood Urea Nitrogen 19 mg/dL (9-20); Calcium 8.5 mg/dL (8.4-10.2); Carbon Dioxide 29 mmol/L (22-30); Chloride 102 mmol/L (98-107); Estimated CRCL calculation 39 ml/min; Estimated Glomerular Filt Rate 58; Glucose 89 mg/dL (65-110); Potassium 4.5 mmol/L (3.4-5.0); Sodium 135 mmol/L (137-145)
[2021-10-13] MEDS: GABAPENTIN 300 MG CAPSULE 600 MG PO ×2 (09:21→20:09)
[2021-10-13] MEDS: ASPIRIN 325 MG TABLET PO (09:21)
[2021-10-13] MEDS: PANTOPRAZOLE 40 MG TABLET PO (09:22)
[2021-10-13] MEDS: QUEtiapine FUMARATE 25 MG TABLET PO (09:22)
[2021-10-13] MEDS: AMIODARONE HCL 100 MG TABLET PO (09:22)
[2021-10-13] MEDS: DONEPEZIL HCL 10 MG TABLET PO (09:22)
[2021-10-13] MEDS: predniSONE 10 MG TABLET PO (09:22)
[2021-10-13] MEDS: CLOPIDOGREL BISULFATE 75 MG TABLET PO (09:22)
[2021-10-13] MEDS: METOPROLOL TARTRATE 25 MG TABLET PO (09:22)
[2021-10-13 13:52] VITALS: BP 138/52; PULSE 50; RESP 18; TEMP 36; O2SAT 100
--- NOTE | 2021-10-13 15:24 | PM.IMPN ---
Progress Note: A&P Assessment and Plan (1) NORMA (acute kidney injury): Code(s): N17.9 - Acute kidney failure, unspecified Status: Acute Assessment and Plan: likely secondary to be pre renal azotemia patient having diarrhea on also on Lasix gentle hydration will hold Lasix 10/12/2021 interval history: and 86-year-old male with dementia was brought emergency department with a complaint of diarrhea and poor oral intake upon patient was found to be dehydrated with serum creatinine level of 1.5, we will gently hydrate the patient as patient's serum creatinine is trending down 1.1 and have PT OT evaluate the, patient will benefit from rehab, will continue to monitor. 10/13/2021 interval history: 86-year-old male with dementia was brought emergency department with a complaint of diarrhea and poor oral intake, upon arrival patient was found to be dehydrated with serum creatinine level of 1.5, patient is gently hydrated the patient, as patient's serum creatinine is trending down 1.1 and will continue to monitor. Today patient is working with physical therapy, was able to ambulate to the bathroom will continue PT and OT, patient will benefit going to SNF for rehab. (2) Dysphagia: Onset Date: ~2019 Qualifiers: Dysphagia type: unspecified Qualified Code(s): R13.10 - Dysphagia, unspecified Code(s): R13.10 - Dysphagia, unspecified Status: Acute Assessment and Plan: refuses feeding tube chronic aspiration modified diet (3) Paroxysmal atrial fibrillation: Code(s): I48.0 - Paroxysmal atrial fibrillation Status: Acute Assessment and Plan: rate controlled (4) Aspiration pneumonia: Qualifiers: Aspiration pneumonia type: unspecified Laterality: bilateral Lung location: unspecified part of lung Qualified Code(s): J69.0 - Pneumonitis due to inhalation of food and vomit Code(s): J69.0 - Pneumonitis due to inhalation of food and vomit Status: Acute Assessment and Plan: chronic aspiration pneumonia (5) Generalized weakness: Code(s): R53.1 - Weakness Status: Acute Assessment and Plan: likely secondary to poor per orally intake and dehydration PT OT (6) Chronic anemia: Code(s): D64.9 - Anemia, unspecified Status: Acute Assessment and Plan: unchanged (7) 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 Today patient is working with physical therapy, was able to ambulate to the bathroom will continue PT and OT, patient will benefit going to SNF for rehab. Review of Systems Review of Systems: ROS unobtainable: Yes unobtainable due to mental status ( obtundation) Exam Narrative: elderly frail Patient is comfortable, NAD HEENT: eyes are clear and none icteric LUNGS: normal respiratory effort ABD: not distended Lower extremities: no edema SKIN: nonjaundiced Neuro: grossly intact. Objective Data Vital Signs Vital Signs: Vital Signs - 24 hr 10/12/21 20:00 10/12/21 22:00 10/12/21 22:00 Temperature 96.9 F L Pulse Rate 89 Respiratory Rate 16 Blood Pressure 141/64 H Pulse Oximetry 98 98 Oxygen Delivery Room Air Room Air 10/13/21 06:00 10/13/21 13:52 Temperature 97.1 F L 96.8 F L Pulse Rate 58 L 50 L Respiratory Rate 16 18 Blood Pressure 159/86 H 138/52 L Pulse Oximetry 95 100 Oxygen Delivery Intake/Output Intake/Output:
[2021-10-13 21:29] VITALS: BP 181/64; PULSE 53; RESP 14; TEMP 36.8; O2SAT 99
[2021-10-14 06:28] LABS: Hematocrit 36.6 % (42.0-52.0); Hemoglobin 11.7 g/dL (14.0-18.0); Mean Corpuscular Hemoglobin 31.1 pg (26-34); Mean Corpuscular Volume 97.3 fl (80-100); Mean Platelet Volume 12.2 fl (7.4-10.4); Platelet Count Result 120 k/mm3 (150-375); Red Blood Count 3.76 M/mm3 (4.6-6.20); Red Cell Distribution Width 12.8 % (11.5-14.5); White Blood Count 7.1 K/mm3 (4.5-10.0)
[2021-10-14 07:01] LABS: Anion Gap 5 mmol/L (8-16); Blood Urea Nitrogen 19 mg/dL (9-20); Calcium 8.3 mg/dL (8.4-10.2); Carbon Dioxide 28 mmol/L (22-30); Chloride 101 mmol/L (98-107); Estimated CRCL calculation 46 ml/min; Estimated Glomerular Filt Rate > 60; Glucose 93 mg/dL (65-110); Sodium 134 mmol/L (137-145)
[2021-10-14 08:00] VITALS: PULSE 53; RESP 14; O2SAT 99
[2021-10-14] MEDS: QUEtiapine FUMARATE 25 MG TABLET PO (08:58)
[2021-10-14] MEDS: ASPIRIN 325 MG TABLET PO (08:58)
[2021-10-14] MEDS: METOPROLOL TARTRATE 25 MG TABLET PO (08:58)
[2021-10-14] MEDS: predniSONE 10 MG TABLET PO (08:58)
[2021-10-14] MEDS: GABAPENTIN 300 MG CAPSULE 600 MG PO (08:58)
[2021-10-14] MEDS: CLOPIDOGREL BISULFATE 75 MG TABLET PO (08:58)
[2021-10-14] MEDS: PANTOPRAZOLE 40 MG TABLET PO (08:58)
[2021-10-14] MEDS: DONEPEZIL HCL 10 MG TABLET PO (08:58)
[2021-10-14] MEDS: AMIODARONE HCL 100 MG TABLET PO (08:59)
--- NOTE | 2021-10-14 10:05 | PM.DS ---
DS: Admitting Diagnosis Discharge Date 10/14/2021 Admitting Diagnosis acute mental status change DS: Discharge Diagnosis Discharge Diagnosis (1) NORMA (acute kidney injury): Code(s): N17.9 - Acute kidney failure, unspecified Status: Acute Assessment and Plan: likely secondary to be pre renal azotemia patient having diarrhea on also on Lasix gentle hydration will hold Lasix 10/12/2021 interval history: and 86-year-old male with dementia was brought emergency department with a complaint of diarrhea and poor oral intake upon patient was found to be dehydrated with serum creatinine level of 1.5, we will gently hydrate the patient as patient's serum creatinine is trending down 1.1 and have PT OT evaluate the, patient will benefit from rehab, will continue to monitor. 10/13/2021 interval history: 86-year-old male with dementia was brought emergency department with a complaint of diarrhea and poor oral intake, upon arrival patient was found to be dehydrated with serum creatinine level of 1.5, patient is gently hydrated the patient, as patient's serum creatinine is trending down 1.1 and will continue to monitor. Today patient is working with physical therapy, was able to ambulate to the bathroom will continue PT and OT, patient will benefit going to SNF for rehab. (2) Dysphagia: Onset Date: ~2019 Qualifiers: Dysphagia type: unspecified Qualified Code(s): R13.10 - Dysphagia, unspecified Code(s): R13.10 - Dysphagia, unspecified Status: Acute Assessment and Plan: refuses feeding tube chronic aspiration modified diet (3) Paroxysmal atrial fibrillation: Code(s): I48.0 - Paroxysmal atrial fibrillation Status: Acute Assessment and Plan: rate controlled (4) Aspiration pneumonia: Qualifiers: Aspiration pneumonia type: unspecified Laterality: bilateral Lung location: unspecified part of lung Qualified Code(s): J69.0 - Pneumonitis due to inhalation of food and vomit Code(s): J69.0 - Pneumonitis due to inhalation of food and vomit Status: Acute Assessment and Plan: chronic aspiration pneumonia (5) Generalized weakness: Code(s): R53.1 - Weakness Status: Acute Assessment and Plan: likely secondary to poor per orally intake and dehydration PT OT (6) Chronic anemia: Code(s): D64.9 - Anemia, unspecified Status: Acute Assessment and Plan: unchanged (7) 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 patient was brought to the emergency room for evaluation due to family concerns after patient? was not been his usual. apparently patient had been having diarrhea for the last few days or so and decreased oral intake.? history taking is on how limited due to patient's? underlying dementia however he denies any chills, fevers, rigors, nausea, vomiting, belly pain. Preliminary workup was significant for? chemistry panel creatinine 1.5 BUN 26. chest x-ray with right lower lobe of opacity. Patient is been admitted for further evaluation management and treatment. Hospital Course: 86-year-old male with dementia was brought emergency department with a complaint of diarrhea and poor oral intake,? upon arrival patient was found to be dehydrated with serum creatinine level of 1.5, patient is gently hydrated the patient,? as patient's serum creatinine is trending down 1.1? and will continue to monitor. Today patient is working
[2021-10-14 11:06] LABS: EDCOVIDSCREEN Negative (Negative)
== END 2021-10-14 13:00 ==
LOC: ANHED 10-11 00:07 → ANH3MEDSUR 10-11 03:22
PROVIDERS: Chiropractor; Admitting Provider Internal Medicine; Emergency Provider Emergency Medicine; PCP Internal Medicine; Visit Provider Family Medicine
DX: N17.9 Acute kidney failure, unspecified (principal); R13.10 Dysphagia, unspecified; F03.90 Unspecified dementia, unspecified severity, without behavioral disturbance, psychotic disturbance, mood disturbance, and anxiety; I48.0 Paroxysmal atrial fibrillation; J69.0 Pneumonitis due to inhalation of food and vomit; D64.9 Anemia, unspecified; J61 Pneumoconiosis due to asbestos and other mineral fibers; J94.8 Other specified pleural conditions; E86.0 Dehydration; R19.7 Diarrhea, unspecified; F41.8 Other specified anxiety disorders; E11.40 Type 2 diabetes mellitus with diabetic neuropathy, unspecified; E11.51 Type 2 diabetes mellitus with diabetic peripheral angiopathy without gangrene; K21.9 Gastro-esophageal reflux disease without esophagitis; I10 Essential (primary) hypertension; E78.5 Hyperlipidemia, unspecified; I45.4 Nonspecific intraventricular block; Z95.820 Peripheral vascular angioplasty status with implants and grafts; M19.90 Unspecified osteoarthritis, unspecified site; Z20.822 Contact with and (suspected) exposure to COVID-19; Z86.16 Personal history of COVID-19; Z95.1 Presence of aortocoronary bypass graft; Z86.73 Personal history of transient ischemic attack (TIA), and cerebral infarction without residual deficits; Z85.46 Personal history of malignant neoplasm of prostate; Z87.891 Personal history of nicotine dependence; Z79.82 Long term (current) use of aspirin; Z79.02 Long term (current) use of antithrombotics/antiplatelets; Z79.51 Long term (current) use of inhaled steroids; Z79.52 Long term (current) use of systemic steroids; Z79.899 Other long term (current) drug therapy; Z82.49 Family history of ischemic heart disease and other diseases of the circulatory system
CPT/HCPCS: 36415; 71046; 80048; 80053; 81001; 83605; 85025; 85027; 87426; 93005; 96360; 96361; 97116; 97161; 97165; 97530; 99285; A9270; C9803; G0378; J7030; J7512; U0003; U0005

== ENCOUNTER 2021-11-29 13:27 | Inpatient (IN) | payer MEDICARE, SELFPAY ==
[2021-11-29] VITALS (21 sets, daily range): BP systolic 126–195; BP diastolic 60–97; PULSE 56–77; RESP 8–21; TEMP 36.6–36.7; O2SAT 98–100; BMI 20.9
--- NOTE | ~2021-11-29 | XR_ITS ---
XR chest 2V 11/29/2021 15:48 Indication: Transient alteration of awareness Procedure: 2 view chest Comparison: Comparison to multiple prior studies sequentially, with oldest reviewed study dated 05/25. Findings: Chronic calcified opacities overlying the right mid and lower thorax. Heart size normal. St atus post median sternotomy. No acute focal pneumonia, edema or effusion. No acute osseous abnormalit y. Impression: 1: No acute cardiopulmonary disease. No significant change. Reviewed, dictated and finalized at location A. Impression: 1: No acute cardiopulmonary disease. No significant change.
--- NOTE | ~2021-11-29 | XR_ITS ---
MODIFIED ESOPHAGRAM HISTORY: Dysphagia. TECHNIQUE: Modified barium esophagram was performed on 12/02/2021. I administered fluoroscopy and perf ormed the exam with speech pathologist. Patient was seated for lateral fluoroscopic imaging for moncho stion of thin liquids, pudding, solids and quantified amounts, followed by thin liquids in uncontroll ed amounts. This was recorded on tape. A single fluoroscopic spot image was also recorded. The DAP fo r this procedure was 1.14 Gycm2. The amount of fluoroscopy time used during this procedure was 1.6 mi nutes. FINDINGS: Oral stage: Adequate function. Pharyngeal stage: Reduced laryngeal elevation and adduction and reduced tongue base retraction. There is moderate amount of vallecular and pharyngeal wall residue and large amount residue in the pirifor m sinus. Severe laryngeal penetration with silent aspiration of significant amounts of material withi n liquids, thickened liquids and pudding consistencies. Possible cricopharyngeal dysfunction. Cervical/esophageal stage: Adequate function. IMPRESSION: Severe pharyngeal dysphagia with significant recurrent laryngeal penetration with silent aspiration. Please correlate with speech pathologist findings and specific feeding recommendations. Reviewed, dictated and finalized at location A. IMPRESSION: Severe pharyngeal dysphagia with significant recurrent laryngeal pe netration with silent aspiration. Please correlate with speech pathologist david katz and specific feeding recommendations.
--- NOTE | ~2021-11-29 | CT_ITS ---
EXAMINATION: CT brain wo con DATE: 11/29/2021 15:45 INDICATION: Loosely locations. Confusion. TECHNIQUE: Computed tomography (CT) of the head was performed without intravenous contrast. The dose- length product was 756.67 mGy-cm. Automated exposure control and iterative reconstruction technique w ere employed. COMPARISON: CT dated 05/22/2019 FINDINGS: Generalized atrophy. There are scattered mild periventricular and subcortical white matter changes, most likely related to small vessel ischemic disease (microangiopathy). Small chronic right lacunar and left occipital lobe infarctions. No acute intracranial hemorrhage, infarction, mass or ma ss effect. Paranasal sinuses are pneumatized. Small mastoid effusions. IMPRESSION: 1. No acute intracranial abnormality. 2: Small chronic right lacunar and left occipital lobe infarctions. 3: Chronic age-related findings. Reviewed, dictated and finalized at location A.
--- NOTE | ~2021-11-29 | XR_ITS ---
XR lumbar spine 2-3V 11/30/2021 13:41 Indication: Back pain Procedure: 3 views lumbar spine Comparison: No prior studies for comparison. Findings: There is disc narrowing and endplate degenerative change at all lumbar levels. There are pr ominent ventral osteophytes at multiple levels. There is mild dextrocurvature of the lumbar spine. No acute fracture or traumatic malalignment. Pedicles intact. There are splenic artery calcifications. No evidence for spondylolisthesis. Impression: 1: Moderate-severe lumbar spondylosis. Reviewed, dictated and finalized at location B. Impression: 1: Moderate-severe lumbar spondylosis.
--- NOTE | ~2021-11-29 | CT_ITS ---
EXAMINATION: CT chest abdomen pelvis wo con DATE: 12/01/2021 13:23 INDICATION: Back pain. Urinary tract infection. TECHNIQUE: Computed tomography (CT) of the chest, abdomen, and pelvis was performed without intraveno us contrast. Automated exposure control and iterative reconstruction technique were employed. The dos e-length product was 725.19 mGy-cm. COMPARISON: Chest 2 views 11/29/2021, 10/10/2021 FINDINGS: CHEST CT: Right lung is small, which is chronic. There are calcified pleural plaques bilaterally, right worse t casillas left. There are peripheral airspace and groundglass opacities in right lung with architectural di stortion. There are tree-in-bud opacities and centrilobular nodules in right upper lobe. There are gr oundglass opacities in left lower lobe and lingula. No pleural effusion. The heart size is normal. Th ere are coronary artery calcifications. There are changes of coronary artery bypass grafting. No justin cardial effusion. There are bridging endplate osteophytes at multiple levels in the spine, consistent with diffuse idiopathic skeletal hyperostosis (DISH). ABDOMEN/PELVIS CT: The liver is normal. Material in the gallbladder may be sludge or stones. There are peripheral calcif ications in the spleen, likely from old injury. The pancreas and adrenal glands are normal. There are cysts in the kidneys measuring up to 1.9 cm on the right. Stool distends the rectum. The appendix is not visualized. There are no pathologically enlarged lymph nodes. There is no free intraperitoneal f luid. There are bilateral hernias containing fat. There is mild lumbar spondylosis. IMPRESSION: 1. Pneumonia involving the right upper lobe, left lower lobe, and lingula. 2. Chronic lung disease, right worse than left. 3. Stool distends the rectum. Reviewed, dictated and finalized at location A.
[2021-11-29 14:14] LABS: Basophils Percent Auto 0.3 % (0.2-1.2); Eosinophils Absolute Auto 0.1 K/mm3 (0-0.3); Eosinophils Percent Auto 0.9 % (0-4.4); Hematocrit 38.3 % (42.0-52.0); Hemoglobin 11.8 g/dL (14.0-18.0); Immature Granulocyte Absolute 0.01 K/mm3 (0.00-0.031); Immature Granulocyte Percent A 0.2 % (0-0.5); Immature Platelet Fraction Pct 7.7 % (0.9-11.2); Lymphocytes Absolute Auto 0.86 K/mm3 (0.9-3.2); Mean Corpuscular HGB Conc 30.8 g/dl (32-36); Mean Corpuscular Hemoglobin 30.8 pg (26-34); Mean Platelet Volume 11.3 fl (7.4-10.4); Monocytes Absolute Auto 0.5 K/mm3 (0.1-0.6); Neutrophils Absolute Auto 5.2 K/mm3 (1.3-6.7); Neutrophils Percent Auto 77.6 % (45.5-73.1); Platelet Count Result 137 k/mm3 (150-375); Red Blood Count 3.83 M/mm3 (4.6-6.20); Red Cell Distribution Width 14.4 % (11.5-14.5); White Blood Count 6.6 K/mm3 (4.5-10.0)
[2021-11-29 14:22] LABS: Alanine Aminotransferase 21 U/L (6-50); Albumin Level 3.8 g/dL (3.5-5.1); Alkaline Phosphatase 117 U/L (38-126); Anion Gap 6 mmol/L (8-16); Aspartate Amino Transferase 27 U/L (17-59); Bilirubin,Total 0.4 mg/dL (0.2-1.3); Blood Urea Nitrogen 20 mg/dL (9-20); Calcium 8.4 mg/dL (8.4-10.2); Carbon Dioxide 28 mmol/L (22-30); Chloride 103 mmol/L (98-107); Estimated CRCL calculation 40 ml/min; Estimated Glomerular Filt Rate 58; Glucose 115 mg/dL (65-110); Potassium 4.1 mmol/L (3.4-5.0); Sodium 137 mmol/L (137-145)
[2021-11-29 14:23] LABS: Lactic Acid Reflex 1.4 mmol/L (0.7-2.0)
[2021-11-29 15:02] LABS: Appearance Urine Clear (Clear); Bilirubin Urine Negative (Negative); Blood Urine Negative (Negative); Color Urine Yellow (Yellow); Glucose Urine UA Negative (Negative); Ketones Urine Negative (Negative); Leukocyte Esterase Ur Negative LEU/UL (Negative); Nitrate Urine Negative (Negative); Protein Urine Negative (Negative); Specific Grav Ur 1.015 (1.001-1.035); Urobilinogen Urine 0.2 mg/dL (<2.0); pH Urine 5.5 (5.0-9.0)
[2021-11-29 15:04] LABS: Add Urine Microscopic? NO; Mucus Urine Rare /lpf; WBC Urine 0-3 /hpf
[2021-11-29 15:16] LABS: SARS-CoV-2 RNA PCR Negative
--- NOTE | 2021-11-29 15:30 | ED.AMS ---
HPI - Altered Mental Status General Chief Complaint: Altered Mental Status Stated Complaint: UTI - hallucinations that began yesterday Time Seen by Provider: 11/29/21 14:38 History of Present Illness HPI narrative: This is an 86-year-old male with past medical history of hypertension, coronary artery disease and CHF, who was brought in by his son for hallucinations. The patient's son states the patient began having hallucinations yesterday which is concerning to him for urinary tract infections. The patient's son also states 5 days ago the patient was diagnosed with a UTI and started on antibiotics. He states the patient is otherwise appeared to be his normal self and has not fallen. Related Data Home Medications Medication Instructions Recorded Confirmed amiodarone 100 mg tablet 100 mg PO DAILY 03/21/19 11/29/21 aspirin 325 mg tablet 325 mg PO DAILY 03/21/19 11/29/21 atorvastatin 40 mg tablet 40 mg PO DAILY 03/21/19 11/29/21 clopidogrel 75 mg tablet 75 mg PO DAILY 03/21/19 11/29/21 donepezil 10 mg tablet 10 mg PO DAILY 03/21/19 11/29/21 gabapentin 600 mg tablet 600 mg PO BID 03/21/19 11/29/21 metoprolol tartrate 25 mg tablet 25 mg PO DAILY 03/21/19 11/29/21 quetiapine 25 mg tablet 25 mg PO DAILY 03/21/19 11/29/21 furosemide 20 mg tablet 20 mg PO DAILY 05/23/21 11/29/21 pantoprazole 40 mg tablet,delayed 40 mg PO DAILY 05/23/21 11/29/21 release oxybutynin chloride 15 mg 15 mg PO DAILY 11/29/21 11/29/21 tablet,extended release 24 hr Allergies Allergy/AdvReac Type Severity Reaction Status Date / Time No Known Allergies Allergy Verified 11/29/21 22:02 Review of Systems Review of Systems: Per family members CONSTITUTIONAL: Denies fever, chills, or sweats. EYES: Denies visual changes, redness, or discharge. ENT: Denies rhinorrhea, congestion, sore throat, or otalgia. CARDIOVASCULAR: Denies chest pain, palpitations, or edema. RESPIRATORY: Denies cough or dyspnea. GASTROINTESTINAL: Denies abdominal pain, nausea, vomiting, or diarrhea. GENITOURINARY: Denies dysuria or hematuria. SKIN: Denies rash or itching. MUSCULOSKELETAL: Denies back pain, joint pain, or myalgia. NEUROLOGIC: Denies headache, numbness, dizziness, or weakness. PSYCHIATRIC: Denies anxiety or depression. [facility] Past Medical History Medical History (Updated 11/29/21 @ 22:44 by Yazan Marin MD) Asbestosis With chronic plaquing noted on chest x-ray. Chronic anemia With chronic mild thrombocytopenia as well. 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 No residual deficits. Depression with anxiety Diet-controlled diabetes mellitus Hemoglobin A1c was 5.4 in June 2017. Dysphagia (~2019) Patient refuses G-tube despite continued aspiration GERD (gastroesophageal reflux disease) Hyperlipidemia Hypertension Neuropathy Osteoarthritis Paroxysmal atrial fibrillation Peripheral vascular disease With balloon angioplasty to popliteal artery above the right knee in [place] [address] Gamble. Prostate cancer Vivid dream Apparently this is been ongoing for many decades, and daughter describes that he has ?violent and vivid dreams.? Surgical History Surgical History Status post four vessel coronary artery bypass May [address] Guerrero at [facility]. Status post left knee replacement Status post prostatectomy Status post tonsillectomy Family History Family History Father Alcoholism Congestive heart failure Social History Social History Social History: Mr. Leyva is and lives in [place] with his . His daughter and son-in-law have moved in to help. 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 He smoked 2 packs of cigarettes per day for about 15 years and quit 1973. He has not drank s
[2021-11-29 17:11] LABS: Amphetamine Screen Urine Negative (Negative); Barbiturate Screen Urine Negative (Negative); Benzodiazepines Screen Urine Negative (Negative); Cannabinoid Screen Urine Negative (Negative); Cocaine Screen Urine Negative (Negative); Methadone Screen Urine Negative (Negative); Opiate Screen Urine Negative (Negative); Phencyclidine Screen Urine Negative (Negative)
--- NOTE | 2021-11-29 18:30 | PM.IMHP ---
H&P: HPI History of Present Illness Date/Time: 11/29/21 18:30 Chief Complaint: Hallucinations. Narrative: This is an 86-year-old male with coronary artery disease, peripheral vascular disease, hypertension, chronic anemia, congestive heart failure, and diabetes who presented to the emergency department from home for evaluation of hallucinations. The patient is not the best historian and as such some of the following is obtained via a review of his electronic medical records as well as discussions with the son-in-law at bedside call with the patient's permission. The patient lives at home with his and they have caretakers that come 4 days a week for nearly 8 hours a day. Biology Manager noticed that the patient has seemed confused over the last 2 days and he has been having visual hallucinations for instance he saw his son-in-law outside working on his car when in fact he was down in the basement and he saw tract earlier on in the room in the ER which was not the case. He apparently has not had issues with this in the past and they brought him in today for evaluation. With further questioning he did just finished an antibiotic for urinary tract infection and his urinalysis today is unremarkable. In fact his labs were stable and unremarkable when compared to previous tests. 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 He continues to have hallucinations and he is being admitted for further evaluation. Currently he has no specific complaints aside from the fact that he is thirsty. He is aware that he is having these hallucinations. He denies auditory and visual changes. No facial asymmetry or dysarthria. He has chronic dysphagia and has refused G-tube in the past. He denies focal weakness and paresthesias. He has not had any recent falls. He typically ambulates with a walker however recently he has been getting around more often in a wheelchair. His memory has been poor for a while though he has no history of dementia. No history of Parkinson's or seizure. Review of Systems Review of Systems: Twelve systems were reviewed but are limited as he is not the best historian. He does currently deny headache, sinus congestion, sore throat, chest pain, shortness a breath, cough, abdominal pain, nausea, vomiting, diarrhea, and dysuria. [facility] Past Medical History Medical History (Updated 11/30/21 @ 00:05 by Rin Snider PA-C) Asbestosis With chronic plaquing noted on chest x-ray. Chronic anemia With chronic mild thrombocytopenia as well. 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 No residual deficits. Depression with anxiety Diet-controlled diabetes mellitus Hemoglobin A1c was 5.4 in June 2017. Dysphagia (~2019) Patient refuses G-tube despite continued aspiration GERD (gastroesophageal reflux disease) Hyperlipidemia Hypertension Neuropathy Osteoarthritis Paroxysmal atrial fibrillation Peripheral vascular disease With balloon angioplasty to popliteal artery above the right knee in September [address] Gamble. Prostate cancer Thrombocytopenia Chronic, mild thrombocytopenia. Vivid dream Apparently this is been ongoing for many decades, and daughter describes that he has ?violent and vivid dreams.? Surgical History Surgical History Status post four vessel coronary artery bypass May [address] Guerrero at [facility]. Status post left knee replacement Status post prostatectomy Status post tonsillectomy Family History Family History Father Alcoholism Congestive heart failure Social History Social History (Updated 11/29/21 @ 23:59 by Rin Snider PA-C) Social History: Mr. Leyva is and lives in [place] with his . His daughter and son-in-law have moved in to help. 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
--- NOTE | 2021-11-29 20:35 | ADMGEN ---
This patient, Tommy Leyva, was admitted to 3 [facility] Surg Room 304-02. Patient/family oriented to hospital policies and general routines including ID bracelet, bed and alarms, visiting hours, pain management, procedures, bathroom and other care routines, personal items, smoking policy, room service/diet, and visiting hours. Information on how to activate the Rapid Response Team has been discussed. Patient/Family are encouraged to report perceived risks to care and to ask questions if they do not understand what they are told or what they should do.
[2021-11-30] VITALS (7 sets, daily range): BP systolic 119–165; BP diastolic 53–84; PULSE 58–70; RESP 12–20; TEMP 36.2–36.6; O2SAT 97–100
[2021-11-30 06:06] LABS: Hematocrit 39.1 % (42.0-52.0); Hemoglobin 12.6 g/dL (14.0-18.0); Mean Corpuscular HGB Conc 32.2 g/dl (32-36); Mean Corpuscular Hemoglobin 31.2 pg (26-34); Mean Corpuscular Volume 96.8 fl (80-100); Platelet Count Result 111 k/mm3 (150-375); Red Blood Count 4.04 M/mm3 (4.6-6.20); Red Cell Distribution Width 14.2 % (11.5-14.5); White Blood Count 6.3 K/mm3 (4.5-10.0)
[2021-11-30 06:15] LABS: Anion Gap 8 mmol/L (8-16); Blood Urea Nitrogen 15 mg/dL (9-20); Calcium 8.8 mg/dL (8.4-10.2); Carbon Dioxide 27 mmol/L (22-30); Chloride 104 mmol/L (98-107); Estimated CRCL calculation 48 ml/min; Estimated Glomerular Filt Rate > 60; Glucose 90 mg/dL (65-110); Potassium 3.8 mmol/L (3.4-5.0); Sodium 139 mmol/L (137-145)
[2021-11-30] MEDS: GABAPENTIN 300 MG CAPSULE 600 MG PO ×2 (09:27→18:23)
[2021-11-30] MEDS: METOPROLOL TARTRATE 25 MG TABLET PO (09:27)
[2021-11-30] MEDS: FUROSEMIDE 20 MG TABLET PO (09:28)
[2021-11-30] MEDS: CLOPIDOGREL BISULFATE 75 MG TABLET PO (09:28)
[2021-11-30] MEDS: PANTOPRAZOLE 40 MG TABLET PO (09:28)
[2021-11-30] MEDS: QUEtiapine FUMARATE 25 MG TABLET PO (09:28)
[2021-11-30] MEDS: ASPIRIN 325 MG TABLET PO (09:28)
[2021-11-30] MEDS: AMIODARONE HCL 100 MG TABLET PO (09:28)
[2021-11-30] MEDS: ATORVASTATIN 40 MG TABLET PO (09:28)
[2021-11-30] MEDS: DONEPEZIL HCL 10 MG TABLET PO (09:29)
[2021-11-30 10:56] LABS: Free T4 Free Thyroxine Reflex 1.76 ng/dL (0.78-2.19)
[2021-11-30] MEDS: SODIUM CHLORIDE 0.9% IV 1,000 ML 60 ML IV CONT (11:57)
--- NOTE | 2021-11-30 12:10 | PM.IMPN ---
Progress Note: A&P Assessment and Plan (1) Visual hallucinations: Code(s): R44.1 - Visual hallucinations Status: Acute (2) Thrombocytopenia: Code(s): D69.6 - Thrombocytopenia, unspecified Status: Acute (3) Cognitive decline: Code(s): R41.89 - Other symptoms and signs involving cognitive functions and awareness Status: Acute (4) Dysphagia: Onset Date: ~2019 Qualifiers: Dysphagia type: unspecified Qualified Code(s): R13.10 - Dysphagia, unspecified Code(s): R13.10 - Dysphagia, unspecified Status: Acute (5) Generalized weakness: Code(s): R53.1 - Weakness Status: Acute Plan # acute to subacute encephalopathy likely toxic metabolic. Noted any visual hallucinations. Recently treated for UTI. Imaging labs with no significant abnormality. Blood generalized weakness and cognitive decline. CT head with no acute findings. 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 Neuro to see. Eeg has been ordered. TSH is only mildly elevated at 5.04 UA is negative for infection UDS is negative COVID negative. Chest x-ray with no acute findings # chronic dysphagia refused G-tube placement in the past Back pain check x-ray Chronic anemia Chronic thrombocytopenia DVT prophylaxis: Lovenox Hypertension Hyperlipidemia Coronary artery disease Congestive heart failure Subjective Date/time seen: 11/30/21 12:10 Interval history: HPI: This is an 86-year-old male with coronary artery disease, peripheral vascular disease, hypertension, chronic anemia, congestive heart failure, and diabetes who presented to the emergency department from home for evaluation of hallucinations. The patient is not the best historian and as such some of the following is obtained via a review of his electronic medical records as well as discussions with the son-in-law at bedside call with the patient's permission. The patient lives at home with his and they have caretakers that come 4 days a week for nearly 8 hours a day. Student Liaison Officer noticed that the patient has seemed confused over the last 2 days and he has been having visual hallucinations for instance he saw his son-in-law outside working on his car when in fact he was down in the basement and he saw tract earlier on in the room in the ER which was not the case. He apparently has not had issues with this in the past and they brought him in today for evaluation. With further questioning he did just finished an antibiotic for urinary tract infection and his urinalysis today is unremarkable. In fact his labs were stable and unremarkable when compared to previous tests. 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 He continues to have hallucinations and he is being admitted for further evaluation. Currently he has no specific complaints aside from the fact that he is thirsty. He is aware that he is having these hallucinations. He denies auditory and visual changes.? No facial asymmetry or dysarthria. He has chronic dysphagia and has refused G-tube in the past. He denies focal weakness and paresthesias. He has not had any recent falls.? He typically ambulates with a walker however recently he has been getting around more often in a wheelchair.? His memory has been poor for a while though he has no history of dementia. No history of Parkinson's or seizure. 11/30/2021 continued to be confused. and daughter bedside. Been confused for few weeks now. Recently treated for UTI. CT head negative. Complains of low back pain Review of Systems Review of Systems: All systems reviewed & are unremarkable except as noted in HPI and below Exam Narrative: General: Chronically ill-appearing gentleman lying in bed with no acute distress HEENT: Normocephalic, atraumatic. Masked facies. He is wearing glasses. PERRL, EOMI. Sclera anicteric. Conjunctiva moderately injected. Tacky mucous membranes. Oropharynx not vi
--- NOTE | 2021-11-30 12:50 | PCSTNOTE ---
Bedside swallowing evaluation. Bedside swallowing evaluation completed during lunch. Patient ate 25% of meal including minced and moist spaghetti and minced and moist greenbeans. No pocketing noted. Patient drank thin liquids directly from cup. Utlized chin tuck independently. No signs or symptoms of aspiration observed during evaluation. Recommendation: minced and moist diet (level 5) and thin liquids. Utilize swallowing precautions. No speech therapy. Thank you for the referral of this patient.
[2021-11-30 13:49] LABS: Total Triiodothyronine (T3) 1.13 NG/ML (0.97-1.69)
--- NOTE | 2021-11-30 13:49 | WPDNEURCNPN ---
Assessment and Plan Assessment and plan (1) Cognitive decline: Code(s): R41.89 - Other symptoms and signs involving cognitive functions and awareness Status: Acute (2) Visual hallucinations: Code(s): R44.1 - Visual hallucinations Status: Acute Plan encephalopathic at this stage patient is somewhat more coherent he has been taking the Seroquel at home as well the medication will be continued as such we can obtain the EEG to rule out the possibility of any seizure with the underlying cerebral dysfunction Consult date: 11/30/21 Reason for consult: change in the mental status HPI: Tommy Leyva is a 86 year old male admitted to the hospital through the emergency room where he was brought with the complaints of altered mental status and with the history that hallucination began yesterday in addition to the additional diagnosis of urinary tract infection. Patient does carry the history of 1. Hypertension 2. Coronary artery disease 3. Congestive heart failure patient was observed to have the hallucination by his son . His medication as an outpatient included aspirin 325 mg daily clopidogrel 75 mg daily donepezil 10 mg daily gabapentin 600 mg twice a day Seroquel 25 mg daily, he is not allergic to any medications, does have ongoing history of asbestosis as well in addition to previous stroke involving the right lentiform nucleus and left occipital lobe he is a former smoker not a drinker an initial examination in the emergency room were grossly nonfocal vital signs was normal routine lab studies were unremarkable with lactic acid 1.4 there was no bleed on the repeat CT scan, SARS-CoV-2 it is negative PMFSH Past Medical History Medical History (Updated 11/30/21 @ 00:05 by Rin Snider PA-C) Asbestosis With chronic plaquing noted on chest x-ray. Chronic anemia With chronic mild thrombocytopenia as well. 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 No residual deficits. Depression with anxiety Diet-controlled diabetes mellitus Hemoglobin A1c was 5.4 in June 2017. Dysphagia (~2019) Patient refuses G-tube despite continued aspiration GERD (gastroesophageal reflux disease) Hyperlipidemia Hypertension Neuropathy Osteoarthritis Paroxysmal atrial fibrillation Peripheral vascular disease With balloon angioplasty to popliteal artery above the right knee in September [address] Gamble. Prostate cancer Thrombocytopenia Chronic, mild thrombocytopenia. Vivid dream Apparently this is been ongoing for many decades, and daughter describes that he has ?violent and vivid dreams.? Surgical History Surgical History Status post four vessel coronary artery bypass May [address] Guerrero at [facility]. Status post left knee replacement Status post prostatectomy Status post tonsillectomy Family History Family History Father Alcoholism Congestive heart failure Social History Social History (Updated 11/29/21 @ 23:59 by Rin Snider PA-C) Social History: Mr. Leyva is and lives in [place] with his . His daughter and son-in-law have moved in to help. 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 He smoked 2 packs of cigarettes per day for about 15 years and quit 1973. He has not drank since 1998. His daughter, Brittani, is his power of litigation attorney associate. Spiritual care concerns: No Agree to blood products: Yes Meds Home Medications and Allergies Home Medications Medication Instructions Recorded Confirmed Type amiodarone 100 mg tablet 100 mg PO DAILY 03/21/19 11/29/21 History aspirin 325 mg tablet 325 mg PO DAILY 03/21/19 11/29/21 History atorvastatin 40 mg tablet 40 mg PO DAILY 03/21/19 11/29/21 History clopidogrel 75 mg tablet 75 mg PO DAILY 03/21/19 11/29/21 History donepezil 10 mg
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
[2021-12-01 06:00] VITALS: BP 112/83; PULSE 55; RESP 18; TEMP 36.2; O2SAT 100
[2021-12-01] MEDS: GABAPENTIN 300 MG CAPSULE 600 MG PO ×2 (08:52→18:14)
[2021-12-01 08:53] VITALS: PULSE 66
[2021-12-01] MEDS: ATORVASTATIN 40 MG TABLET PO (08:53)
[2021-12-01] MEDS: QUEtiapine FUMARATE 25 MG TABLET PO (08:53)
[2021-12-01] MEDS: DONEPEZIL HCL 10 MG TABLET PO (08:53)
[2021-12-01] MEDS: AMIODARONE HCL 100 MG TABLET PO (08:53)
[2021-12-01] MEDS: PANTOPRAZOLE 40 MG TABLET PO (08:53)
[2021-12-01] MEDS: CLOPIDOGREL BISULFATE 75 MG TABLET PO (08:53)
[2021-12-01] MEDS: ASPIRIN 325 MG TABLET PO (08:53)
[2021-12-01 08:54] VITALS: PULSE 66
[2021-12-01 08:54] LABS: Basophils Percent Auto 0.5 % (0.2-1.2); Eosinophils Absolute Auto 0.1 K/mm3 (0-0.3); Eosinophils Percent Auto 1.3 % (0-4.4); Hematocrit 38.3 % (42.0-52.0); Hemoglobin 12.2 g/dL (14.0-18.0); Immature Granulocyte Absolute 0.01 K/mm3 (0.00-0.031); Immature Granulocyte Percent A 0.2 % (0-0.5); Immature Platelet Fraction Pct 6.4 % (0.9-11.2); Lymphocytes Absolute Auto 0.75 K/mm3 (0.9-3.2); Lymphocytes Percent Auto 12.6 % (18.3-44.2); Mean Corpuscular HGB Conc 31.9 g/dl (32-36); Mean Corpuscular Hemoglobin 31.3 pg (26-34); Mean Corpuscular Volume 98.2 fl (80-100); Mean Platelet Volume 11.2 fl (7.4-10.4); Monocytes Absolute Auto 0.5 K/mm3 (0.1-0.6); Monocytes Percent Auto 8.8 % (2.6-8.5); Neutrophils Absolute Auto 4.6 K/mm3 (1.3-6.7); Neutrophils Percent Auto 76.6 % (45.5-73.1); Platelet Count Result 134 k/mm3 (150-375); Red Cell Distribution Width 14.5 % (11.5-14.5); White Blood Count 5.9 K/mm3 (4.5-10.0)
[2021-12-01] MEDS: METOPROLOL TARTRATE 25 MG TABLET PO (08:54)
[2021-12-01] MEDS: ENOXAPARIN 40 MG/0.4 ML SYRINGE SUB-Q (08:54)
[2021-12-01 09:19] LABS: Alanine Aminotransferase 15 U/L (6-50); Albumin Level 3.5 g/dL (3.5-5.1); Alkaline Phosphatase 98 U/L (38-126); Anion Gap 10 mmol/L (8-16); Aspartate Amino Transferase 21 U/L (17-59); Bilirubin,Total 0.6 mg/dL (0.2-1.3); Blood Urea Nitrogen 16 mg/dL (9-20); Calcium 8.5 mg/dL (8.4-10.2); Carbon Dioxide 26 mmol/L (22-30); Chloride 103 mmol/L (98-107); Estimated CRCL calculation 40 ml/min; Estimated Glomerular Filt Rate 58; Glucose 94 mg/dL (65-110); Magnesium 2.1 mg/dL (1.6-2.3); Potassium 3.8 mmol/L (3.4-5.0); Sodium 139 mmol/L (137-145)
--- NOTE | 2021-12-01 11:29 | WPDNEUROLOGY ---
Neurology EEG Report General Information Date of Study: 12/01/21 TEST eeg DIAGNOSIS change in the mental status CONDITION OF RECORDING done at the bedside EEG NUMBER [id number] CLINICAL HISTORY unresponsive EEG DESCRIPTION low to medium voltage 2 to 3 hertz per 2nd delta activity seen bilaterally with no evidence of any paroxysmal activity intermittently 5 to 7 hertz per 2nd theta activity seen admixed with the delta activity. Non paroxysmal. Nonfocal. Nonlateralizing. IMPRESSION Abnormal record due to the presence of bihemispheric theta and delta activity without any paroxysmal discharge these abnormalities are suggestive of underlying organic or metabolic encephalopathy clinical correlation recommended
--- NOTE | 2021-12-01 12:06 | PM.IMPN ---
Progress Note: A&P Assessment and Plan (1) Visual hallucinations: Code(s): R44.1 - Visual hallucinations Status: Acute (2) Thrombocytopenia: Code(s): D69.6 - Thrombocytopenia, unspecified Status: Acute (3) Cognitive decline: Code(s): R41.89 - Other symptoms and signs involving cognitive functions and awareness Status: Acute (4) Dysphagia: Onset Date: ~2019 Qualifiers: Dysphagia type: unspecified Qualified Code(s): R13.10 - Dysphagia, unspecified Code(s): R13.10 - Dysphagia, unspecified Status: Acute (5) Generalized weakness: Code(s): R53.1 - Weakness Status: Acute Plan # acute to subacute encephalopathy likely toxic metabolic. Noted any visual hallucinations. Recently treated for UTI. Imaging labs with no significant abnormality. Blood generalized weakness and cognitive decline. CT head with no acute findings. 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 Neuro consulted Eeg seizure-like activity. TSH is only mildly elevated at 5.04 UA is negative for infection UDS is negative COVID negative. Chest x-ray with no acute findings # chronic dysphagia refused G-tube placement in the past # Back pain check x-ray moderate to severe spondylosis # Chronic anemia # Chronic thrombocytopenia # DVT prophylaxis: Lovenox # Hypertension # Hyperlipidemia # Coronary artery disease # Congestive heart failure Subjective Date/time seen: 12/01/21 12:06 Interval history: HPI: This is an 86-year-old male with coronary artery disease, peripheral vascular disease, hypertension, chronic anemia, congestive heart failure, and diabetes who presented to the emergency department from home for evaluation of hallucinations. The patient is not the best historian and as such some of the following is obtained via a review of his electronic medical records as well as discussions with the son-in-law at bedside call with the patient's permission. The patient lives at home with his and they have caretakers that come 4 days a week for nearly 8 hours a day. Athletic Equipment Custodian noticed that the patient has seemed confused over the last 2 days and he has been having visual hallucinations for instance he saw his son-in-law outside working on his car when in fact he was down in the basement and he saw tract earlier on in the room in the ER which was not the case. He apparently has not had issues with this in the past and they brought him in today for evaluation. With further questioning he did just finished an antibiotic for urinary tract infection and his urinalysis today is unremarkable. In fact his labs were stable and unremarkable when compared to previous tests. 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 He continues to have hallucinations and he is being admitted for further evaluation. Currently he has no specific complaints aside from the fact that he is thirsty. He is aware that he is having these hallucinations. He denies auditory and visual changes.? No facial asymmetry or dysarthria. He has chronic dysphagia and has refused G-tube in the past. He denies focal weakness and paresthesias. He has not had any recent falls.? He typically ambulates with a walker however recently he has been getting around more often in a wheelchair.? His memory has been poor for a while though he has no history of dementia. No history of Parkinson's or seizure. 11/30/2021 continued to be confused. and daughter bedside. Been confused for few weeks now. Recently treated for UTI. CT head negative. Complains of low back pain 12/01/2021 confused. Vital stable labs reviewed. He knows self Review of Systems Review of Systems: All systems reviewed & are unremarkable except as noted in HPI and below Exam Narrative: General: Chronically ill-appearing gentleman lying in bed with no acute distress HEENT: Normocephalic, atraumatic. Masked facies. He is we
--- NOTE | 2021-12-01 13:50 | WPDNEUROPN ---
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 Juan Luis Singh for the follow-up pertinent results include chronic right lacunar and left occipital lobe infarct on CT scan of the head, negative x-ray chest, eeg abnormal but because of the theta and delta activity without evidence of any paroxysmal discharge or seizure on this tracing and routine lab normal negative stars COVID. Objective Data Vital Signs Vital Signs: Vital Signs - 24 hr 11/30/21 16:00 11/30/21 20:00 11/30/21 20:00 Temperature 36.5 C 36.6 C Pulse Rate 58 L 59 L Respiratory Rate 16 20 Blood Pressure 165/72 H 129/82 Pulse Oximetry 100 100 Oxygen Delivery Room Air 12/01/21 06:00 12/01/21 08:53 12/01/21 08:54 Temperature 36.2 C L Pulse Rate 55 L 66 66 Respiratory Rate 18 Blood Pressure 112/83 Pulse Oximetry 100 Oxygen Delivery Intake/Output Intake/Output: Intake & Output 11/28/21 11/29/21 11/30/21 12/01/21 23:59 23:59 23:59 23:59 Intake Total 360 240 Balance 360 240 Meds/Results Medications: Active Medications Generic Name Dose Route Start Last Admin Trade Name Baronq PRN Reason Stop Dose Admin Amiodarone HCl 100 mg 11/30/21 08:00 12/01/21 08:53 Amiodarone Hcl 100 Mg Tablet PO 100 mg DAILY@0800 ALEXANDER Administration Aspirin 325 mg 11/30/21 08:00 12/01/21 08:53 Aspirin 325 Mg Tablet PO 325 mg DAILY@0800 ALEXANDER Administration Atorvastatin Calcium 40 mg 11/30/21 09:00 12/01/21 08:53 Atorvastatin 40 Mg Tablet PO 40 mg DAILY ALEXANDER Administration Clopidogrel Bisulfate 75 mg 11/30/21 09:00 12/01/21 08:53 Clopidogrel Bisulfate 75 Mg Tablet PO 75 mg DAILY ALEXANDER Administration Donepezil HCl 10 mg 11/30/21 09:00 12/01/21 08:53 Donepezil Hcl 10 Mg Tablet PO 10 mg DAILY ALEXANDER Administration Enoxaparin Sodium 40 mg 12/01/21 09:00 12/01/21 08:54 Enoxaparin 40 Mg/0.4 Ml Syringe SUB-Q 40 mg DAILY ALEXANDER Administration Furosemide 20 mg 11/30/21 09:00 11/30/21 09:28 Furosemide 20 Mg Tablet PO 20 mg DAILY ALEXANDER Administration Gabapentin 600 mg 11/30/21 09:00 12/01/21 08:52 Gabapentin 300 Mg Capsule PO 600 mg BID ALEXANDER Administration Sodium Chloride 1,000 mls @ 60 mls/hr 11/30/21 11:10 12/01/21 08:00 Normal Saline Iv IV CONT Not Given .[id number] [facility] Metoprolol Tartrate 25 mg 11/30/21 09:00 12/01/21 08:54 Metoprolol Tartrate 25 Mg Tablet PO 25 mg DAILY ALEXANDER Administration Oxybutynin Chloride 15 mg 11/30/21 09:00 12/01/21 08:53 Oxybutynin Chloride Xl 5 Mg Tab.Er.24 PO 15 mg DAILY ALEXANDER Administration Pantoprazole Sodium 40 mg 11/30/21 09:00 12/01/21 08:53 Pantoprazole 40 Mg Tablet PO 40 mg DAILY ALEXANDER Administration Quetiapine Fumarate 25 mg 11/30/21 09:00 12/01/21 08:53 Quetiapine Fumarate 25 Mg Tablet PO 25 mg DAILY ALEXANDER Administration Radiology Results: ITS Impressions Head CT 11/29/21 15:48 IMPRESSION: 1. No acute intracranial abnormality. 2: Small chronic right lacunar and left occipital lobe infarctions. 3: Chronic age-related findings. Chest X-Ray 11/29/21 15:52 Impression: 1: No acute cardiopulmonary disease. No significant change. Lumbar Spine X-Ray 11/30/21 13:56 Impression: 1: Moderate-severe lumbar spondylosis. Labs Labs: Laboratory Results - last 24 hr 11/29/21 11/29/21 11/30/21 14:05 14:51 05:32 WBC 6.6 RBC 3.83 L Hgb 11.8 L Hct 38.3 L MCV 100.0 MCH 30.8 MCHC 30.8 L RDW 14.4 Plt Coun
[2021-12-01 14:00] VITALS: BP 142/58; PULSE 50; RESP 16; TEMP 35.9; O2SAT 100
--- NOTE | 2021-12-01 15:57 | PCPTNOTE ---
The patient treatment was not able to be completed today due to patient sleeping soundly when PT attempted this afternoon and patient did not arouse to participate. Will plan to continue treatment per plan of care.
[2021-12-01 20:00] VITALS: BP 130/49; PULSE 53; RESP 16; TEMP 36.3; O2SAT 94
[2021-12-01] MEDS: SODIUM CHLORIDE 0.9% IV 1,000 ML 60 ML IV CONT (21:51)
[2021-12-01 22:00] VITALS: BP 130/49; PULSE 53; RESP 16; TEMP 36.3; O2SAT 94
[2021-12-02] VITALS (8 sets, daily range): BP systolic 94–146; BP diastolic 49–76; PULSE 50–58; RESP 16; TEMP 35.7–36.8; O2SAT 94–100
[2021-12-02 06:16] LABS: Basophils Percent Auto 0.4 % (0.2-1.2); Eosinophils Absolute Auto 0.1 K/mm3 (0-0.3); Eosinophils Percent Auto 1.5 % (0-4.4); Hematocrit 35.6 % (42.0-52.0); Hemoglobin 11.3 g/dL (14.0-18.0); Immature Granulocyte Absolute 0.02 K/mm3 (0.00-0.031); Immature Granulocyte Percent A 0.2 % (0-0.5); Immature Platelet Fraction Pct 6.8 % (0.9-11.2); Lymphocytes Percent Auto 13.6 % (18.3-44.2); Mean Corpuscular HGB Conc 31.7 g/dl (32-36); Mean Corpuscular Volume 97.8 fl (80-100); Mean Platelet Volume 11.7 fl (7.4-10.4); Monocytes Absolute Auto 0.6 K/mm3 (0.1-0.6); Monocytes Percent Auto 7.5 % (2.6-8.5); Neutrophils Absolute Auto 6.2 K/mm3 (1.3-6.7); Neutrophils Percent Auto 76.8 % (45.5-73.1); Platelet Count Result 133 k/mm3 (150-375); Red Blood Count 3.64 M/mm3 (4.6-6.20); Red Cell Distribution Width 14.5 % (11.5-14.5); White Blood Count 8.1 K/mm3 (4.5-10.0)
[2021-12-02 06:29] LABS: Alanine Aminotransferase 14 U/L (6-50); Albumin Level 3.1 g/dL (3.5-5.1); Alkaline Phosphatase 87 U/L (38-126); Anion Gap 6 mmol/L (8-16); Aspartate Amino Transferase 18 U/L (17-59); Bilirubin,Total 0.6 mg/dL (0.2-1.3); Blood Urea Nitrogen 18 mg/dL (9-20); Calcium 8.3 mg/dL (8.4-10.2); Carbon Dioxide 29 mmol/L (22-30); Chloride 104 mmol/L (98-107); Estimated CRCL calculation 40 ml/min; Estimated Glomerular Filt Rate 58; Glucose 100 mg/dL (65-110); Magnesium 1.9 mg/dL (1.6-2.3); Potassium 4.1 mmol/L (3.4-5.0); Sodium 139 mmol/L (137-145)
[2021-12-02] MEDS: GABAPENTIN 300 MG CAPSULE 600 MG PO ×2 (09:12→17:23)
[2021-12-02] MEDS: ASPIRIN 325 MG TABLET PO (09:12)
[2021-12-02] MEDS: ATORVASTATIN 40 MG TABLET PO (09:12)
[2021-12-02] MEDS: CLOPIDOGREL BISULFATE 75 MG TABLET PO (09:12)
[2021-12-02] MEDS: PANTOPRAZOLE 40 MG TABLET PO (09:12)
[2021-12-02] MEDS: ENOXAPARIN 40 MG/0.4 ML SYRINGE SUB-Q (09:14)
[2021-12-02] MEDS: QUEtiapine FUMARATE 25 MG TABLET PO (09:14)
[2021-12-02] MEDS: DONEPEZIL HCL 10 MG TABLET PO (09:14)
--- NOTE | 2021-12-02 11:38 | PM.IMPN ---
Progress Note: A&P Assessment and Plan (1) Visual hallucinations: Code(s): R44.1 - Visual hallucinations Status: Acute (2) Thrombocytopenia: Code(s): D69.6 - Thrombocytopenia, unspecified Status: Acute (3) Cognitive decline: Code(s): R41.89 - Other symptoms and signs involving cognitive functions and awareness Status: Acute (4) Dysphagia: Onset Date: ~2019 Qualifiers: Dysphagia type: unspecified Qualified Code(s): R13.10 - Dysphagia, unspecified Code(s): R13.10 - Dysphagia, unspecified Status: Acute (5) Generalized weakness: Code(s): R53.1 - Weakness Status: Acute Plan # acute to subacute encephalopathy likely toxic metabolic. Noted any visual hallucinations. Recently treated for UTI. Imaging labs with no significant abnormality. Blood generalized weakness and cognitive decline. CT head with no acute findings. 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 Neuro consulted Eeg seizure-like activity. TSH is only mildly elevated at 5.04 UA is negative for infection UDS is negative COVID negative. Chest x-ray with no acute findings CT chest abdomen pelvis with multifocal pneumonia noted. Started on Zosyn. Likely related to aspiration. Modified barium swallow for evaluation of his dysphagia planned. # chronic dysphagia refused G-tube placement in the past # Back pain check x-ray moderate to severe spondylosis # Chronic anemia # Chronic thrombocytopenia # DVT prophylaxis: Lovenox # Hypertension # Hyperlipidemia # Coronary artery disease # Congestive heart failure # disposition likely needs half-way placement Subjective Date/time seen: 12/02/21 11:38 Interval history: HPI: This is an 86-year-old male with coronary artery disease, peripheral vascular disease, hypertension, chronic anemia, congestive heart failure, and diabetes who presented to the emergency department from home for evaluation of hallucinations. The patient is not the best historian and as such some of the following is obtained via a review of his electronic medical records as well as discussions with the son-in-law at bedside call with the patient's permission. The patient lives at home with his and they have caretakers that come 4 days a week for nearly 8 hours a day. Metal Turner noticed that the patient has seemed confused over the last 2 days and he has been having visual hallucinations for instance he saw his son-in-law outside working on his car when in fact he was down in the basement and he saw tract earlier on in the room in the ER which was not the case. He apparently has not had issues with this in the past and they brought him in today for evaluation. With further questioning he did just finished an antibiotic for urinary tract infection and his urinalysis today is unremarkable. In fact his labs were stable and unremarkable when compared to previous tests. 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 He continues to have hallucinations and he is being admitted for further evaluation. Currently he has no specific complaints aside from the fact that he is thirsty. He is aware that he is having these hallucinations. He denies auditory and visual changes.? No facial asymmetry or dysarthria. He has chronic dysphagia and has refused G-tube in the past. He denies focal weakness and paresthesias. He has not had any recent falls.? He typically ambulates with a walker however recently he has been getting around more often in a wheelchair.? His memory has been poor for a while though he has no history of dementia. No history of Parkinson's or seizure. 11/30/2021 continued to be confused. and daughter bedside. Been confused for few weeks now. Recently treated for UTI. CT head negative. Complains of low back pain 12/01/2021 confused. Vital stable labs reviewed. He knows self 12/02/2021 no overnight events. Patient confused
--- NOTE | 2021-12-02 13:11 | PCSTNOTE ---
Please refer to the Modified Barium Swallow Evaluation in the EMR.
[2021-12-03 06:00] VITALS: BP 149/57; PULSE 55; RESP 16; TEMP 35.9; O2SAT 100
[2021-12-03] MEDS: ENOXAPARIN 40 MG/0.4 ML SYRINGE SUB-Q (11:46)
[2021-12-03] MEDS: ASPIRIN 325 MG TABLET PO (11:47)
[2021-12-03] MEDS: DONEPEZIL HCL 10 MG TABLET PO (11:47)
[2021-12-03] MEDS: CLOPIDOGREL BISULFATE 75 MG TABLET PO (11:47)
[2021-12-03] MEDS: ATORVASTATIN 40 MG TABLET PO (11:47)
[2021-12-03] MEDS: GABAPENTIN 300 MG CAPSULE 600 MG PO ×2 (11:47→18:46)
[2021-12-03] MEDS: PANTOPRAZOLE 40 MG TABLET PO (11:48)
[2021-12-03] MEDS: QUEtiapine FUMARATE 25 MG TABLET PO (11:48)
[2021-12-03 11:58] VITALS: PULSE 66
[2021-12-03] MEDS: AMIODARONE HCL 100 MG TABLET PO (11:58)
[2021-12-03] MEDS: METOPROLOL TARTRATE 25 MG TABLET PO (11:58)
[2021-12-03 14:00] VITALS: BP 149/56; PULSE 52; RESP 16; TEMP 36.5; O2SAT 95
--- NOTE | 2021-12-03 15:23 | PM.IMPN ---
Progress Note: A&P Assessment and Plan (1) Visual hallucinations: Code(s): R44.1 - Visual hallucinations Status: Acute (2) Thrombocytopenia: Code(s): D69.6 - Thrombocytopenia, unspecified Status: Acute (3) Cognitive decline: Code(s): R41.89 - Other symptoms and signs involving cognitive functions and awareness Status: Acute (4) Dysphagia: Onset Date: ~2019 Qualifiers: Dysphagia type: unspecified Qualified Code(s): R13.10 - Dysphagia, unspecified Code(s): R13.10 - Dysphagia, unspecified Status: Acute (5) Generalized weakness: Code(s): R53.1 - Weakness Status: Acute Plan # acute to subacute encephalopathy likely toxic metabolic. Noted any visual hallucinations. Recently treated for UTI. Imaging labs with no significant abnormality. Blood generalized weakness and cognitive decline. CT head with no acute findings. 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 Neuro consulted Eeg seizure-like activity. TSH is only mildly elevated at 5.04 UA is negative for infection UDS is negative COVID negative. Chest x-ray with no acute findings CT chest abdomen pelvis with multifocal pneumonia noted. Started on Zosyn. Likely related to aspiration. Modified barium swallow with severe pharyngeal dysphagia with significant recurrent laryngeal penetration with side aspiration. He has always been opposed to getting G-tube placement. Hospice conversation initiated and in process. # chronic dysphagia refused G-tube placement in the past # Back pain check x-ray moderate to severe spondylosis # Chronic anemia # Chronic thrombocytopenia # DVT prophylaxis: Lovenox # Hypertension # Hyperlipidemia # Coronary artery disease # Congestive heart failure # disposition he came from home with family support Likely needs long-term placement due to his underlying dementia and progressive decline with behavioral issues Subjective Date/time seen: 12/03/21 15:23 Interval history: HPI: This is an 86-year-old male with coronary artery disease, peripheral vascular disease, hypertension, chronic anemia, congestive heart failure, and diabetes who presented to the emergency department from home for evaluation of hallucinations. The patient is not the best historian and as such some of the following is obtained via a review of his electronic medical records as well as discussions with the son-in-law at bedside call with the patient's permission. The patient lives at home with his and they have caretakers that come 4 days a week for nearly 8 hours a day. Configuration Management Advisor noticed that the patient has seemed confused over the last 2 days and he has been having visual hallucinations for instance he saw his son-in-law outside working on his car when in fact he was down in the basement and he saw tract earlier on in the room in the ER which was not the case. He apparently has not had issues with this in the past and they brought him in today for evaluation. With further questioning he did just finished an antibiotic for urinary tract infection and his urinalysis today is unremarkable. In fact his labs were stable and unremarkable when compared to previous tests. 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 He continues to have hallucinations and he is being admitted for further evaluation. Currently he has no specific complaints aside from the fact that he is thirsty. He is aware that he is having these hallucinations. He denies auditory and visual changes.? No facial asymmetry or dysarthria. He has chronic dysphagia and has refused G-tube in the past. He denies focal weakness and paresthesias. He has not had any recent falls.? He typically ambulates with a walker however recently he has been getting around more often in a wheelchair.? His memory has been poor for a while though he has no history of dementia. No history of Parkinson's or seizure. 11/30/2021 c
[2021-12-03 22:00] VITALS: BP 122/53; PULSE 51; RESP 16; TEMP 35.9; O2SAT 100
[2021-12-04 06:00] VITALS: BP 139/69; PULSE 66; RESP 16; TEMP 36.2; O2SAT 99
[2021-12-04 07:28] LABS: Basophils Percent Auto 0.3 % (0.2-1.2); Eosinophils Absolute Auto 0.2 K/mm3 (0-0.3); Eosinophils Percent Auto 1.9 % (0-4.4); Hematocrit 38.8 % (42.0-52.0); Hemoglobin 12.3 g/dL (14.0-18.0); Immature Granulocyte Absolute 0.02 K/mm3 (0.00-0.031); Immature Granulocyte Percent A 0.2 % (0-0.5); Lymphocytes Absolute Auto 0.82 K/mm3 (0.9-3.2); Lymphocytes Percent Auto 9.1 % (18.3-44.2); Mean Corpuscular HGB Conc 31.7 g/dl (32-36); Mean Corpuscular Hemoglobin 31.5 pg (26-34); Mean Corpuscular Volume 99.5 fl (80-100); Mean Platelet Volume 11.9 fl (7.4-10.4); Monocytes Absolute Auto 0.7 K/mm3 (0.1-0.6); Monocytes Percent Auto 7.6 % (2.6-8.5); Neutrophils Absolute Auto 7.3 K/mm3 (1.3-6.7); Neutrophils Percent Auto 80.9 % (45.5-73.1); Platelet Count Result 119 k/mm3 (150-375); Red Cell Distribution Width 14.7 % (11.5-14.5)
[2021-12-04 07:35] LABS: Alanine Aminotransferase 12 U/L (6-50); Albumin Level 3.4 g/dL (3.5-5.1); Alkaline Phosphatase 93 U/L (38-126); Anion Gap 9 mmol/L (8-16); Aspartate Amino Transferase 16 U/L (17-59); Bilirubin,Total 0.6 mg/dL (0.2-1.3); Blood Urea Nitrogen 14 mg/dL (9-20); Calcium 8.4 mg/dL (8.4-10.2); Carbon Dioxide 30 mmol/L (22-30); Chloride 101 mmol/L (98-107); Estimated CRCL calculation 41 ml/min; Estimated Glomerular Filt Rate 58; Glucose 100 mg/dL (65-110); Magnesium 1.9 mg/dL (1.6-2.3); Potassium 4.2 mmol/L (3.4-5.0); Sodium 140 mmol/L (137-145)
[2021-12-04] MEDS: ENOXAPARIN 40 MG/0.4 ML SYRINGE SUB-Q (07:58)
[2021-12-04 07:59] VITALS: PULSE 66
[2021-12-04] MEDS: DONEPEZIL HCL 10 MG TABLET PO (07:59)
[2021-12-04] MEDS: GABAPENTIN 300 MG CAPSULE 600 MG PO (07:59)
[2021-12-04] MEDS: ATORVASTATIN 40 MG TABLET PO (07:59)
[2021-12-04] MEDS: QUEtiapine FUMARATE 25 MG TABLET PO (07:59)
[2021-12-04] MEDS: AMIODARONE HCL 100 MG TABLET PO (07:59)
[2021-12-04] MEDS: PANTOPRAZOLE 40 MG TABLET PO (07:59)
[2021-12-04 08:00] VITALS: PULSE 66
[2021-12-04] MEDS: CLOPIDOGREL BISULFATE 75 MG TABLET PO (08:00)
[2021-12-04] MEDS: METOPROLOL TARTRATE 25 MG TABLET PO (08:00)
[2021-12-04] MEDS: ASPIRIN 325 MG TABLET PO (08:00)
--- NOTE | 2021-12-04 12:21 | P.PNIM_ITS ---
Progress Note: A&P Assessment and Plan (1) Visual hallucinations: Code(s): R44.1 - Visual hallucinations Status: Acute (2) Thrombocytopenia: Code(s): D69.6 - Thrombocytopenia, unspecified Status: Acute (3) Cognitive decline: Code(s): R41.89 - Other symptoms and signs involving cognitive functions and awareness Status: Acute (4) Dysphagia: Onset Date: ~2019 Qualifiers: Dysphagia type: unspecified Qualified Code(s): R13.10 - Dysphagia, unspecified Code(s): R13.10 - Dysphagia, unspecified Status: Acute (5) Generalized weakness: Code(s): R53.1 - Weakness Status: Acute Plan # acute to subacute encephalopathy likely toxic metabolic. Noted any visual hallucinations. Recently treated for UTI. Imaging labs with no significant ab normality. Blood generalized weakness and cognitive decline. CT head with no acute findings. 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 Neuro consulted Eeg seizure-like activity. TSH is only mildly elevated at 5.04 UA is negative for infection UDS is negative COVID negative. Chest x-ray with no acute findings CT chest abdomen pelvis with multifocal pneumonia noted. Started on Zosyn. Likely related to aspiration. Modified barium swallow with severe pharyngeal dysphagia with significant recurrent laryngeal penetration with side aspiration. He has always been opposed to getting G-tube placement. Hospice conversation initiated and in process. # chronic dysphagia refused G-tube placement in the past # Back pain check x-ray moderate to severe spondylosis # Chronic anemia # Chronic thrombocytopenia # DVT prophylaxis: Lovenox # Hypertension # Hyperlipidemia # Coronary artery disease # Congestive heart failure # disposition he came from home with family support Likely needs long-term placement due to his underlying dementia and progressive decline with behavioral issues Subjective Date/time seen: 12/04/21 12:21 Interval history: HPI: This is an 86-year-old male with coronary artery disease, peripheral vascular disease, hypertension, chronic anemia, congestive heart failure, and diabetes who presented to the emergency department from home for evaluation of hallucinations. The patient is not the best historian and as such some of the following is obtained via a review of his electronic medical records as well as discussions with the son-in-law at bedside call with the patient's permission. The patient lives at home with his and they have caretakers that come 4 days a week for nearly 8 hours a day. Assistant Professor In Family Studies noticed that the patient has seemed confused over the last 2 days and he has been having visual hallucinations for instance he saw his son-in-law outside working on his car when in fact he was down in the basement and he saw tract earlier on in the room in the ER which was not the case. He apparently has not had issues with this in the past and they brought him in today for evaluation. With further questioning he did just finished an antibiotic for urinary tract infection and his urinalysis today is unremarkable. In fact his labs were stable and unremarkable when compared to previous tests. 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 He continues to have hallucinations and he is being admitted for further evaluation. Currently he has no specific complaints aside from the fact that he is thirsty. He is aware that he is having these hallucinations. He denies audito ry and visual changes.? No facial asymmetry or dysarthria. He has chronic dysphagia and has refused G-tube in the past. He denies focal weakness an
[2021-12-04 15:30] VITALS: BP 122/68; PULSE 56; RESP 16; TEMP 36.4; O2SAT 99
[2021-12-04 20:00] VITALS: PULSE 57; RESP 16; O2SAT 100
[2021-12-04 21:36] VITALS: BP 160/61; PULSE 57; RESP 16; TEMP 36.7; O2SAT 100
[2021-12-05 05:21] VITALS: BP 168/61; PULSE 53; RESP 18; TEMP 36.1; O2SAT 100
[2021-12-05] MEDS: ENOXAPARIN 40 MG/0.4 ML SYRINGE SUB-Q (08:47)
[2021-12-05] MEDS: GABAPENTIN 300 MG CAPSULE 600 MG PO (08:47)
[2021-12-05 08:48] VITALS: PULSE 58
[2021-12-05] MEDS: ASPIRIN 325 MG TABLET PO (08:48)
[2021-12-05] MEDS: PANTOPRAZOLE 40 MG TABLET PO (08:48)
[2021-12-05] MEDS: QUEtiapine FUMARATE 25 MG TABLET PO (08:48)
[2021-12-05] MEDS: AMIODARONE HCL 100 MG TABLET PO (08:48)
[2021-12-05] MEDS: ATORVASTATIN 40 MG TABLET PO (08:48)
[2021-12-05] MEDS: CLOPIDOGREL BISULFATE 75 MG TABLET PO (08:48)
[2021-12-05 08:49] VITALS: PULSE 58
[2021-12-05] MEDS: DONEPEZIL HCL 10 MG TABLET PO (08:49)
[2021-12-05] MEDS: METOPROLOL TARTRATE 25 MG TABLET PO (08:49)
--- NOTE | 2021-12-05 15:04 | PM.DS ---
DS: Admitting Diagnosis Discharge Date 12/05/2021 Admitting Diagnosis confusion DS: Discharge Diagnosis Discharge Diagnosis (1) Visual hallucinations: Code(s): R44.1 - Visual hallucinations Status: Acute (2) Thrombocytopenia: Code(s): D69.6 - Thrombocytopenia, unspecified Status: Acute (3) Cognitive decline: Code(s): R41.89 - Other symptoms and signs involving cognitive functions and awareness Status: Acute (4) Dysphagia: Onset Date: ~2019 Qualifiers: Dysphagia type: unspecified Qualified Code(s): R13.10 - Dysphagia, unspecified Code(s): R13.10 - Dysphagia, unspecified Status: Acute (5) Generalized weakness: Code(s): R53.1 - Weakness Status: Acute DS: Summary Hospital Course Hospital Course: # acute to subacute encephalopathy likely toxic metabolic.? Noted visual hallucinations.? Recently treated for UTI.? Imaging labs with no significant abnormality.? Blood generalized weakness and cognitive decline.? CT head with no acute findings.? 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 Neuro consulted EEG with no seizure-like activity.? TSH is only mildly elevated at 5.04 UA is negative for infection UDS is negative COVID negative.? Chest x-ray with no acute findings CT chest abdomen pelvis with multifocal pneumonia noted.? Started on Zosyn.? Likely related to aspiration.? Modified barium swallow with severe pharyngeal dysphagia with significant recurrent laryngeal penetration with silent aspiration.? He has always been opposed to getting G-tube placement.? discussion with the family with regard to findings and further treatment. He is opposed to G-tube And it is refused with the family as well. he needs to be on restricted diet and needs supervised mealtime. He might still aspirate an on and off worsening symptoms related to recurrent pneumonia possible. At that point hospice care will be initiated by the family if desired. # chronic dysphagia refused G-tube placement in the past # Back pain check x-ray moderate to severe spondylosis # Chronic anemia # Chronic thrombocytopenia # DVT prophylaxis:? Lovenox # Hypertension # Hyperlipidemia # Coronary artery disease # Congestive heart failure # disposition he came from home with Home health which was arranged at the time of discharge Time Spent with Patient Time attestation: Total time spent providing and/or coordinating discharge services: 50 minutes Exam Narrative: General: Chronically ill-appearing gentleman lying in bed with no acute distress HEENT: Normocephalic, atraumatic. Masked facies. He is wearing glasses. PERRL, EOMI. Sclera anicteric. Conjunctiva moderately injected. Tacky mucous membranes. Oropharynx not visualized. Neck: Supple. No obvious bruits though he has difficulties holding his breath. No lymphadenopathy. Respiratory: Respirations are nonlabored. Lung sounds are diminished due to poor effort. Cardiovascular: Regular rate and rhythm with S1-S2. Gastrointestinal: Abdomen is soft, nontender, and nondistended with positive bowel sounds. Bladder is not tender nor does feel distended. Skin: Warm and dry. Generalized pallor. Extremities: No cyanosis, clubbing, or edema. Radial and pedal pulses intact. Neurological: Alert and awake Oriented to self and place not to time ,Cranial nerves 2-12 are grossly intact. Generalized weakness without focal findings. No tremors Psychiatric: Pleasantly confused and cooperative. DS: Data Procedures/Treatments: Neurology EEG Report General Information Date of Study: 12/01/21 TEST eeg DIAGNOSIS ?change in the mental status CONDITION OF RECORDING ?done at the bedside EEG NUMBER [id number] CLINICAL HISTORY ?unresponsive EEG DESCRIPTION ? low to medium voltage 2 to 3 hertz per 2nd delta activity seen bilaterally with no evidence of any paroxysmal activity intermittently 5 to 7 hert
== END 2021-12-05 16:00 | disposition home health service (06) | DRG 124 ==
LOC: ANHED 14:43 → ANH3MEDSUR 20:12
PROVIDERS: Emergency Medicine; Physician Assistant; Admitting Provider Internal Medicine; Emergency Provider Preventive Medicine Aerospace Medicine; PCP Internal Medicine; Visit Provider Internal Medicine
DX: R44.1 Visual hallucinations (principal); J69.0 Pneumonitis due to inhalation of food and vomit; I50.32 Chronic diastolic (congestive) heart failure; R41.89 Other symptoms and signs involving cognitive functions and awareness; I25.10 Atherosclerotic heart disease of native coronary artery without angina pectoris; I11.0 Hypertensive heart disease with heart failure; F41.8 Other specified anxiety disorders; E11.9 Type 2 diabetes mellitus without complications; K21.9 Gastro-esophageal reflux disease without esophagitis; Z20.822 Contact with and (suspected) exposure to COVID-19; I48.0 Paroxysmal atrial fibrillation; I73.9 Peripheral vascular disease, unspecified; D64.9 Anemia, unspecified; M19.90 Unspecified osteoarthritis, unspecified site; E11.42 Type 2 diabetes mellitus with diabetic polyneuropathy; E78.5 Hyperlipidemia, unspecified; R13.13 Dysphagia, pharyngeal phase; D69.6 Thrombocytopenia, unspecified; Z87.440 Personal history of urinary (tract) infections; Z96.652 Presence of left artificial knee joint; Z79.82 Long term (current) use of aspirin; Z86.73 Personal history of transient ischemic attack (TIA), and cerebral infarction without residual deficits; Z85.46 Personal history of malignant neoplasm of prostate; Z95.1 Presence of aortocoronary bypass graft; Z87.891 Personal history of nicotine dependence
CPT/HCPCS: 36415; 51701; 70450; 71046; 71250; 72100; 74176; 80048; 80053; 80307; 81003; 82607; 83605; 83735; 84439; 84443; 84480; 85025; 85027; 85055; 92526; 92610; 92611; 95816; 96372; 97110; 97116; 97161; 97165; 97530; 97535; 99285; A9270; C9803; G0378; J1650; J2543; J7030; U0003; U0005

== ENCOUNTER 2022-02-03 18:09 | Inpatient (IN) | payer MEDICARE, SELFPAY ==
--- NOTE | ~2022-02-03 | XR_ITS ---
XR chest 1V portable 02/03/2022 18:49 Indication: Transient alteration of awareness Procedure: AP portable chest Comparison: 11/29/2021 and 10/10/2021 Findings: There is been interval development of extensive left basilar airspace disease, compatible w ith pneumonia. There is chronic right basilar airspace disease and bilateral calcified pleural plaque s. Heart size normal. Status post median sternotomy for CABG. There is chronic right apical pleural t hickening/scarring. Impression: 1: Acute left basilar airspace disease, compatible with pneumonia. Reviewed, dictated and finalized at location A. [facility] Impression: 1: Acute left basilar airspace disease, compatible with pneumonia.
[2022-02-03 18:11] VITALS: BP 156/72; PULSE 88; RESP 23; TEMP 37.7
--- NOTE | 2022-02-03 18:15 | ECG_ITS ---
Measurements Intervals [place] Rate: 89 P: 31 MT: 284 QRS: -64 QRSD: 134 T: 79 QT: 370 QTc: 450 Interpretive Statements POOR DATA QUALITY SINUS RHYTHM WITH FIRST DEGREE AV BLOCK LEFT BUNDLE BRANCH BLOCK COMPARED TO ECG 10/10/2021 22:32:53 NO SIGNIFICANT CHANGE GIVEN THE ABILITY TO DISCERN WITH REDUCED ECG QUALITY Electronically Signed On 02-04-2022 8:31:59 [employer] WORKER by Romain Hernandez M.D.
--- NOTE | 2022-02-03 18:27 | ED.GENADULT ---
HPI - General Adult General Chief complaint: Weakness Stated complaint: fever, increased heart rate Time Seen by Provider: 02/03/22 18:27 History of Present Illness HPI narrative: Patient is an 86-year-old male with a history of dementia, CHF, CAD, hyperlipidemia, hypertension presenting with altered mental status. Patient's states that she visited him in his nursing facility today and noticed that he was shaking. States that they checked his temperature and found it to be 101 so they brought him in for evaluation. Patient's daughter states that this is exactly how he presents when he has a UTI. States that he is starting to see things that are not there which happens when he gets UTIs. Patient states that he has been urinating frequently but denies dysuria or hematuria. Denies headaches, chest pain, shortness of breath, abdominal pain, nausea or vomiting, diarrhea, leg swelling. States he has had an intermittent cough. Related Data Home Medications Medication Instructions Recorded Confirmed amiodarone 100 mg tablet 100 mg PO DAILY 03/21/19 02/04/22 aspirin 325 mg tablet 325 mg PO DAILY 03/21/19 02/04/22 atorvastatin 40 mg tablet 40 mg PO DAILY 03/21/19 02/04/22 clopidogrel 75 mg tablet 75 mg PO DAILY 03/21/19 02/04/22 donepezil 10 mg tablet 10 mg PO DAILY 03/21/19 02/04/22 gabapentin 600 mg tablet 600 mg PO BID 03/21/19 02/04/22 metoprolol tartrate 25 mg tablet 25 mg PO DAILY 03/21/19 02/04/22 quetiapine 25 mg tablet 25 mg PO DAILY 03/21/19 02/04/22 furosemide 20 mg tablet 20 mg PO DAILY 05/23/21 02/04/22 pantoprazole 40 mg tablet,delayed 40 mg PO DAILY 05/23/21 02/04/22 release oxybutynin chloride 15 mg 15 mg PO DAILY 11/29/21 02/04/22 tablet,extended release 24 hr cetirizine 10 mg capsule 10 mg PO DAILY 02/03/22 02/04/22 Allergies Allergy/AdvReac Type Severity Reaction Status Date / Time atorvastatin [From Lipitor] Allergy Unknown Verified 02/03/22 18:42 metformin [From Glucophage] Allergy Unknown Verified 02/03/22 18:41 naproxen [From Naprosyn] Allergy Unknown Verified 02/03/22 18:42 pravastatin [From Pravachol] Allergy Unknown Verified 02/03/22 18:42 Review of Systems Review of Systems: All systems reviewed & are unremarkable except as noted in HPI and below PMFSH Past Medical History Medical History (Updated 02/04/22 @ 16:47 by Madeline Martinez MD) Asbestosis With chronic plaquing noted on chest x-ray. Chronic anemia With chronic mild thrombocytopenia as well. Combined systolic and diastolic heart failure Echocardiogram and 2020: Although EF was 52% patient had basal inferior segment hypokinesis with global longitudinal strain of-12 which is consistent with moderately reduced systolic function, diastolic dysfunction grade 2, moderate left atrial enlargement, mild mitral valve regurgitation, dilated inferior vena cava consistent with elevated right-sided pressures CVA (cerebrovascular accident) Old lacunar right lentiform nucleus and left occipital lobe infarcts on prior imaging. No residual deficits. Depression with anxiety Diet-controlled diabetes mellitus Hemoglobin A1c was 5.4 in June 2017. Dysphagia (~2019) Patient refuses G-tube despite continued aspiration GERD (gastroesophageal reflux disease) Hyperlipidemia Hypertension Neuropathy Osteoarthritis Paroxysmal atrial fibrillation Peripheral vascular disease With balloon angioplasty to popliteal artery above the right knee in [place] [address] Gamble. Prostate cancer Thrombocytopenia Chronic, mild thrombocytopenia. Vivid dream Apparently this is been ongoing for many decades, and daughter describes that he has ?violent and vivid dreams.? Surgical History Surgical History (Updated 02/04/22 @ 05:59 by Korina Dorman DO) Amputation of right great toe Status post four vessel coronary artery bypass May [address] Guerrero at [facility]. Status post left knee replacement Status post prostatectomy Status post tonsillectomy
[2022-02-03] MEDS: SODIUM CHLORIDE 0.9% IV 1,000 ML 999 ML IV CONT ×2 (18:59→23:49)
[2022-02-03 19:01] LABS: Basophils Percent Auto 0.2 % (0.2-1.2); Eosinophils Percent Auto 0.1 % (0-4.4); Hematocrit 38.3 % (42.0-52.0); Hemoglobin 12.3 g/dL (14.0-18.0); Immature Granulocyte Absolute 0.04 K/mm3 (0.00-0.031); Immature Granulocyte Percent A 0.3 % (0-0.5); Lymphocytes Percent Auto 3.7 % (18.3-44.2); Mean Corpuscular HGB Conc 32.1 g/dl (32-36); Mean Corpuscular Volume 99.7 fl (80-100); Mean Platelet Volume 11.5 fl (7.4-10.4); Monocytes Absolute Auto 0.8 K/mm3 (0.1-0.6); Monocytes Percent Auto 5.9 % (2.6-8.5); Neutrophils Percent Auto 89.8 % (45.5-73.1); Platelet Count Result 144 k/mm3 (150-375); Red Blood Count 3.84 M/mm3 (4.6-6.20); Red Cell Distribution Width 13.8 % (11.5-14.5); White Blood Count 13.4 K/mm3 (4.5-10.0)
[2022-02-03 19:10] LABS: Potassium 4.7 mmol/L (3.4-5.0)
[2022-02-03 19:13] LABS: Alanine Aminotransferase 14 U/L (6-50); Alkaline Phosphatase 132 U/L (38-126); Anion Gap 8 mmol/L (8-16); Aspartate Amino Transferase 23 U/L (17-59); Bilirubin,Total 0.6 mg/dL (0.2-1.3); Blood Urea Nitrogen 31 mg/dL (9-20); Calcium 8.5 mg/dL (8.4-10.2); Carbon Dioxide 25 mmol/L (22-30); Chloride 98 mmol/L (98-107); Estimated CRCL calculation 33 ml/min; Estimated Glomerular Filt Rate 45; Glucose 109 mg/dL (65-110); Sodium 131 mmol/L (137-145)
[2022-02-03 20:48] VITALS: BP 120/62; PULSE 75; RESP 22; O2SAT 96
[2022-02-03 21:06] LABS: Appearance Urine Clear (Clear); Bilirubin Urine Negative (Negative); Blood Urine 1+ (Negative); Color Urine Yellow (Yellow); Glucose Urine UA Negative (Negative); Ketones Urine Negative (Negative); Leukocyte Esterase Ur Negative LEU/UL (Negative); Nitrate Urine Negative (Negative); Protein Urine Negative (Negative); Specific Grav Ur 1.015 (1.001-1.035); Urobilinogen Urine 0.2 mg/dL (<2.0)
[2022-02-03 21:11] LABS: Add Urine Microscopic? YES; RBC Urine 0-2 /hpf (0-2); Squamous Epithelial Cell Urine Rare /hpf (Few); WBC Urine 0-3 /hpf
[2022-02-03 23:51] VITALS: BP 114/52; PULSE 80; RESP 20; O2SAT 95
[2022-02-03 23:53] LABS: Influenza A QL RT-PCR Negative (Negative); Influenza B QL RT-PCR Negative (Negative); RSV RNA, RT-PCR Negative (Negative); SARS-CoV-2 RNA PCR Negative
[2022-02-04] VITALS (9 sets, daily range): BP systolic 116–146; BP diastolic 42–75; PULSE 60–91; RESP 16–20; TEMP 36.4–36.6; O2SAT 92–100; BMI 20.4
--- NOTE | 2022-02-04 00:48 | PM.IMHP ---
H&P: HPI History of Present Illness Date/Time: 02/03/22 23:50 Chief Complaint: Fever Narrative: 86-year-old male with past medical history of coronary artery disease, peripheral vascular disease, hypertension, CHF, diabetes and dementia who was brought in via EMS from [facility] due to fever and change in mental status. The patient is a poor historian due to dementia and the majority of information was obtained via review electronic medical records and ER report. Evidently the patient had lived at home until hospitalization in November. He stated that he was discharged back to home but today the patient arrived from [place]. While family was visiting the patient he was shaking and they checked a temperature in his was elevated to 101?. They were concerned that he may have a UTIs he has had multiple UTIs before. The patient's UA in the ER was unremarkable.. He also seemed a little bit lethargic and less responsive. He had been having intermittent cough. The patient was oriented to person but was confused and did not realize that he was in the hospital could not name the current president. He did know the month was January but thought the year was 2012. The patient had modified barium swallow during the last hospitalization which demonstrated persistent infrequent laryngeal penetration and silent aspiration. The patient and family refused G-tube placement or modified diet. They are aware that the patient will continue to get recurrent aspiration pneumonia. In the ER patient's chest x-ray was consistent with pneumonia. The patient was having intermittent episodes of hypoxia in the ER when he would fall asleep. When I arrived to the room patient had nasal cannula in his mouth in his oxygen saturations remained above 92% even when he fell asleep of lungs and nasal cannula was in his mouth. He did have episodes of witnessed apnea at the time of my evaluation. The patient attempted to answer simple questions and did follow some commands but was clearly confused. He denies any abdominal pain, nausea or vomiting. He states he just does not understand why I brenda not leave him alone. Review of Systems Review of Systems: ROS unobtainable: Yes unobtainable due to mental status [facility] Past Medical History Medical History (Updated 02/04/22 @ 06:43 by Korina Dorman, ) Asbestosis With chronic plaquing noted on chest x-ray. Chronic anemia With chronic mild thrombocytopenia as well. Combined systolic and diastolic heart failure Echocardiogram and 2020: Although EF was 52% patient had basal inferior segment hypokinesis with global longitudinal strain of-12 which is consistent with moderately reduced systolic function, diastolic dysfunction grade 2, moderate left atrial enlargement, mild mitral valve regurgitation, dilated inferior vena cava consistent with elevated right-sided pressures CVA (cerebrovascular accident) Old lacunar right lentiform nucleus and left occipital lobe infarcts on prior imaging. No residual deficits. Depression with anxiety Diet-controlled diabetes mellitus Hemoglobin A1c was 5.4 in June 2017. Dysphagia (~2019) Patient refuses G-tube despite continued aspiration GERD (gastroesophageal reflux disease) Hyperlipidemia Hypertension Neuropathy Osteoarthritis Paroxysmal atrial fibrillation Peripheral vascular disease With balloon angioplasty to popliteal artery above the right knee in September [address] Gamble. Prostate cancer Thrombocytopenia Chronic, mild thrombocytopenia. Vivid dream Apparently this is been ongoing for many decades, and daughter describes that he has ?violent and vivid dreams.? Surgical History Surgical History (Updated 02/04/22 @ 05:59 by Korina Dorman DO) Amputation of right great toe Status post four vessel coronary artery bypass May [address] Guerrero at [facility]. Status post left knee replacement Status post prostatectomy Status post tonsillect
--- NOTE | 2022-02-04 01:23 | ADMGEN ---
This patient, Tommy Leyva, was admitted to Medical Room 251-01. Patient/family oriented to hospital policies and general routines including ID bracelet, bed and alarms, visiting hours, pain management, procedures, bathroom and other care routines, personal items, smoking policy, room service/diet, and visiting hours. Information on how to activate the Rapid Response Team has been discussed. Patient/Family are encouraged to report perceived risks to care and to ask questions if they do not understand what they are told or what they should do.
--- NOTE | 2022-02-04 03:51 | PC.NURSE ---
Late entry EKG done at 1819, read by ERP .
--- NOTE | 2022-02-04 04:01 | ECG_ITS ---
Measurements Intervals [place] Rate: 68 P: 7 MI: 300 QRS: -50 QRSD: 144 T: 67 QT: 443 QTc: 474 Interpretive Statements SINUS RHYTHM WITH FIRST DEGREE AV BLOCK INTRAVENTRICULAR CONDUCTION DELAY [130+ ms QRS DURATION] COMPARED TO ECG 02/03/2022 18:19:10 NO SIGNIFICANT CHANGES Electronically Signed On 02-08-2022 13:15:24 RECREATION ENGINEER by Orestes Walls M.D.
[2022-02-04 06:35] LABS: Basophils Percent Auto 0.1 % (0.2-1.2); Eosinophils Percent Auto 0.1 % (0-4.4); Hematocrit 37.3 % (42.0-52.0); Hemoglobin 11.8 g/dL (14.0-18.0); Immature Granulocyte Absolute 0.04 K/mm3 (0.00-0.031); Immature Granulocyte Percent A 0.3 % (0-0.5); Immature Platelet Fraction Pct 7.7 % (0.9-11.2); Lymphocytes Absolute Auto 0.72 K/mm3 (0.9-3.2); Lymphocytes Percent Auto 5.3 % (18.3-44.2); Mean Corpuscular HGB Conc 31.6 g/dl (32-36); Mean Corpuscular Hemoglobin 31.3 pg (26-34); Mean Corpuscular Volume 98.9 fl (80-100); Mean Platelet Volume 11.8 fl (7.4-10.4); Monocytes Percent Auto 7.6 % (2.6-8.5); Neutrophils Absolute Auto 11.7 K/mm3 (1.3-6.7); Neutrophils Percent Auto 86.6 % (45.5-73.1); Platelet Count Result 119 k/mm3 (150-375); Red Blood Count 3.77 M/mm3 (4.6-6.20); Red Cell Distribution Width 13.7 % (11.5-14.5); White Blood Count 13.6 K/mm3 (4.5-10.0)
[2022-02-04] MEDS: AMPICILLIN SULB 3 GM/NS 100 ML 3 GM/100 ML VIAL IVPB ×3 (06:41→21:13)
[2022-02-04 06:51] LABS: Anion Gap 4 mmol/L (8-16); Blood Urea Nitrogen 25 mg/dL (9-20); Calcium 8.1 mg/dL (8.4-10.2); Carbon Dioxide 29 mmol/L (22-30); Chloride 105 mmol/L (98-107); Estimated CRCL calculation 34 ml/min; Estimated Glomerular Filt Rate 48; Glucose 118 mg/dL (65-110); Potassium 4.9 mmol/L (3.4-5.0); Sodium 138 mmol/L (137-145)
[2022-02-04] MEDS: SODIUM CHLORIDE 0.9% IV 1,000 ML 75 ML IV CONT ×2 (07:21→21:13)
[2022-02-04] MEDS: ASPIRIN 325 MG TABLET PO (09:06)
[2022-02-04] MEDS: GABAPENTIN 300 MG CAPSULE 600 MG PO ×2 (09:06→20:16)
[2022-02-04] MEDS: TAMSULOSIN HCL 0.4 MG CAPSULE PO (09:06)
[2022-02-04] MEDS: PANTOPRAZOLE 40 MG TABLET PO (09:06)
[2022-02-04] MEDS: ATORVASTATIN 40 MG TABLET PO (09:06)
[2022-02-04] MEDS: AMIODARONE HCL 100 MG TABLET PO (09:07)
[2022-02-04] MEDS: CLOPIDOGREL BISULFATE 75 MG TABLET PO (09:07)
[2022-02-04] MEDS: LORATADINE 10 MG TABLET PO (09:08)
[2022-02-04] MEDS: QUEtiapine FUMARATE 25 MG TABLET PO (09:08)
[2022-02-04] MEDS: METOPROLOL TARTRATE 25 MG TABLET PO (09:08)
[2022-02-04 09:12] LABS: Glucose Point of Care 99 mg/dl (65-105)
--- NOTE | 2022-02-04 16:50 | PM.IMPN ---
Progress Note: A&P Assessment and Plan (1) Sepsis: Code(s): A41.9 - Sepsis, unspecified organism Status: Acute Assessment and Plan: The patient meets sepsis criteria on admission with tachypnea, leukocytosis, fever in the setting of recurrent aspiration pneumonia. -White count 13 and about the same on repeat. -Chest x-ray shows acute left basilar airspace disease consistent with pneumonia. -Patient has known dysphagia and is aspiration risk. -Was on oxygen but able to be weaned to room air -Continue vancomycin and Unasyn. (2) Aspiration pneumonia: Code(s): J69.0 - Pneumonitis due to inhalation of food and vomit Status: Acute Assessment and Plan: As above. Speech therapy in November showed that material into the airway below the vocal cords and there was no effort made to eject the material. Recommendation was non oral feeding at that time. Both patient and family refused G-tube at that time. A restrictive diet was ordered but hospice was also considered. Will discus with family about options (3) Benign prostatic hyperplasia with urinary retention: Code(s): N40.1 - Benign prostatic hyperplasia with lower urinary tract symptoms; R33.8 - Other retention of urine Status: Acute Assessment and Plan: Patient found to have urine retention. Hood catheter placed. Flomax started. Stop Ditropan. (4) NORMA (acute kidney injury): Code(s): N17.9 - Acute kidney failure, unspecified Status: Acute Assessment and Plan: Cr 1.5 on admission. This could be related to ATN from his infection or dehydration from poor oral intake. Consider also postobstructive process. Repeat creatinine trending downward. Continue IV fluids. (5) Dementia: Code(s): F03.90 - Unspecified dementia, unspecified severity, without behavioral disturbance, psychotic disturbance, mood disturbance, and anxiety Status: Acute Assessment and Plan: Patient alert but confused. He is not on Namenda or Aricept. He does take Seroquel possibly for behavioral disorder. Continue to follow. (6) Thrombocytopenia: Code(s): D69.6 - Thrombocytopenia, unspecified Status: Acute Assessment and Plan: Platelet count low on admission but this appears to be chronic. Continue monitor. (7) Dysphagia: Onset Date: ~2019 Qualifiers: Dysphagia type: unspecified Qualified Code(s): R13.10 - Dysphagia, unspecified Code(s): R13.10 - Dysphagia, unspecified Status: Acute Assessment and Plan: As above. Subjective Date/time seen: 02/04/22 16:50 Interval history: 86yo male with dementia, dysphagia and DM here for fever and found to have PNA. Patient feels well. He denies any chest pain shortness of breath. He is alert but confused. Review of Systems Review of Systems: ROS unobtainable: Yes unobtainable due to mental status Exam Narrative: AF 97.5 125/42 60 20 93% ra Gen - NARD Chest - bilateral inspiratory crackles, nml RR CV - RRR S1/S2 Abd - Soft, NT/ND, Positive BS - urine clear. Ext - No pedal edema. right great toe amputation. Neuro - Alert but confused Psych - Nml mood and affect Skin - Warm and dry. few dried eschars bilateral LE. Objective Data Vital Signs Vital Signs: Vital Signs - 24 hr 02/03/22 18:11 02/03/22 20:48 02/03/22 23:51 Temperature 99.9 F H Pulse Rate 88 75 80 Respiratory Rate 23 H 22 H 20 Blood Pressure 156/72 H 120/62 114/52 L Pulse Oximetry 96 95 Oxygen Delivery Oxygen Flow Rate 02/04/22 00:54 02/04/22 01:49 02/04/22 03:11 Temperature 98 F 97.6 F Pulse Rate 77 67 Respiratory Rate 18 20 Blood Pressure 140/51 L 146/75 H Pulse Oximetry 100 99 96 Oxygen Delivery Nasal Cannula Oxygen Flow Rate 4 02/04/22 09:07 02/04/22 09:08 02/04/22 09:09 Temperature Pulse Rate 60 60 Respiratory Rate Blood Pressure Pulse Oximetry 9
[2022-02-05 05:11] VITALS: BP 138/85; PULSE 82; RESP 16; TEMP 36.7; O2SAT 91
[2022-02-05] MEDS: AMPICILLIN SULB 3 GM/NS 100 ML 3 GM/100 ML VIAL IVPB ×3 (05:14→20:45)
[2022-02-05 06:26] LABS: Basophils Percent Auto 0.2 % (0.2-1.2); Eosinophils Percent Auto 0.3 % (0-4.4); Hematocrit 33.2 % (42.0-52.0); Hemoglobin 10.7 g/dL (14.0-18.0); Immature Granulocyte Absolute 0.03 K/mm3 (0.00-0.031); Immature Granulocyte Percent A 0.3 % (0-0.5); Lymphocytes Absolute Auto 0.42 K/mm3 (0.9-3.2); Lymphocytes Percent Auto 4.5 % (18.3-44.2); Mean Corpuscular HGB Conc 32.2 g/dl (32-36); Mean Corpuscular Volume 99.4 fl (80-100); Mean Platelet Volume 11.3 fl (7.4-10.4); Monocytes Absolute Auto 0.8 K/mm3 (0.1-0.6); Monocytes Percent Auto 8.4 % (2.6-8.5); Neutrophils Absolute Auto 8.1 K/mm3 (1.3-6.7); Neutrophils Percent Auto 86.3 % (45.5-73.1); Platelet Count Result 106 k/mm3 (150-375); Red Blood Count 3.34 M/mm3 (4.6-6.20); Red Cell Distribution Width 13.7 % (11.5-14.5); White Blood Count 9.3 K/mm3 (4.5-10.0)
[2022-02-05 06:45] LABS: Albumin Level 3.3 g/dL (3.5-5.1); Anion Gap 5 mmol/L (8-16); Blood Urea Nitrogen 20 mg/dL (9-20); Calcium 7.9 mg/dL (8.4-10.2); Carbon Dioxide 26 mmol/L (22-30); Chloride 105 mmol/L (98-107); Estimated CRCL calculation 40 ml/min; Estimated Glomerular Filt Rate 58; Glucose 100 mg/dL (65-110); Magnesium 1.9 mg/dL (1.6-2.3); Phosphorus 1.8 mg/dL (2.5-4.5); Potassium 3.9 mmol/L (3.4-5.0); Sodium 136 mmol/L (137-145)
[2022-02-05 08:51] VITALS: PULSE 84
[2022-02-05] MEDS: METOPROLOL TARTRATE 25 MG TABLET PO (08:51)
[2022-02-05] MEDS: PANTOPRAZOLE 40 MG TABLET PO (08:51)
[2022-02-05 08:54] VITALS: PULSE 84
[2022-02-05] MEDS: GABAPENTIN 300 MG CAPSULE 600 MG PO ×2 (08:54→20:37)
[2022-02-05] MEDS: AMIODARONE HCL 100 MG TABLET PO (08:54)
[2022-02-05] MEDS: TAMSULOSIN HCL 0.4 MG CAPSULE PO (08:54)
[2022-02-05] MEDS: LORATADINE 10 MG TABLET PO (08:54)
[2022-02-05] MEDS: ATORVASTATIN 40 MG TABLET PO (08:55)
[2022-02-05] MEDS: CLOPIDOGREL BISULFATE 75 MG TABLET PO (08:55)
[2022-02-05] MEDS: ASPIRIN 325 MG TABLET PO (08:55)
[2022-02-05] MEDS: POTASSIUM/PHOSPHORUS/SODIUM 1.5 GM PACKET 1 PACKET PO (08:55)
[2022-02-05] MEDS: QUEtiapine FUMARATE 25 MG TABLET PO (08:55)
[2022-02-05 09:00] VITALS: O2SAT 96
[2022-02-05 13:44] VITALS: BP 119/72; PULSE 93; RESP 19; TEMP 36.3; O2SAT 91
--- NOTE | 2022-02-05 16:12 | PM.IMPN ---
Progress Note: A&P Assessment and Plan (1) Sepsis: Code(s): A41.9 - Sepsis, unspecified organism Status: Acute Assessment and Plan: The patient meets sepsis criteria on admission with tachypnea, leukocytosis, fever in the setting of recurrent aspiration pneumonia. -White count 13 -Chest x-ray shows acute left basilar airspace disease consistent with pneumonia. -Patient has known dysphagia and is an aspiration risk. -Was on oxygen but able to be weaned to room air -No fevers and WBC normal -Continue Unasyn. Will stop Vanco. (2) Aspiration pneumonia: Code(s): J69.0 - Pneumonitis due to inhalation of food and vomit Status: Acute Assessment and Plan: As above. Speech therapy in November showed that material into the airway below the vocal cords and there was no effort made to eject the material. Recommendation was non oral feeding at that time. Both patient and family refused G-tube at that time. Long discussion with family about options including hospice. Daughter (POA) wishes to proceed with hospice care. Will have care coordination arrange for hospice at discharge. She would like to keep the patient a modified code at this time (3) Benign prostatic hyperplasia with urinary retention: Code(s): N40.1 - Benign prostatic hyperplasia with lower urinary tract symptoms; R33.8 - Other retention of urine Status: Acute Assessment and Plan: Patient found to have urine retention. Hood catheter placed. Flomax started. Oxybutynin stopped. Hood trial tomorrow. (4) NORMA (acute kidney injury): Code(s): N17.9 - Acute kidney failure, unspecified Status: Acute Assessment and Plan: Cr 1.5 on admission. This could be related to ATN from his infection or dehydration from poor oral intake. Consider also postobstructive process. Repeat creatinine trending downward. (5) Dementia: Code(s): F03.90 - Unspecified dementia, unspecified severity, without behavioral disturbance, psychotic disturbance, mood disturbance, and anxiety Status: Acute Assessment and Plan: Patient alert but confused. He does take Seroquel for behavioral disorder. Continue to follow. (6) Thrombocytopenia: Code(s): D69.6 - Thrombocytopenia, unspecified Status: Acute Assessment and Plan: Platelet count low on admission but this appears to be chronic. Continue monitor. (7) Dysphagia: Onset Date: ~2019 Qualifiers: Dysphagia type: unspecified Qualified Code(s): R13.10 - Dysphagia, unspecified Code(s): R13.10 - Dysphagia, unspecified Status: Acute Assessment and Plan: As above. Subjective Date/time seen: 02/05/22 16:12 Interval history: 86yo male with dementia, dysphagia and DM here for fever and found to have PNA. Patient is alert but confused and unable to provide history. He was combative earlier today but better since family has arrived. Family in the room and hospital course was discussed with them. Exam Narrative: AF 97.4 119/72 93 19 91% ra Gen - NARD Chest - bilateral R>L inspiratory crackles, nml RR CV - RRR S1/S2 Abd - Soft, NT/ND, Positive BS - urine clear. Ext - No pedal edema. Neuro - Alert but confused Psych - calm at this time Skin - Warm and dry. Objective Data Vital Signs Vital Signs: Vital Signs - 24 hr 02/04/22 19:18 02/04/22 20:00 02/05/22 05:11 Temperature 97.7 F 98.1 F Pulse Rate 91 82 Respiratory Rate 16 16 Blood Pressure 116/47 L 138/85 Pulse Oximetry 92 91 Oxygen Delivery Room Air 02/05/22 08:51 02/05/22 08:54 02/05/22 09:00 Temperature Pulse Rate 84 84 Respiratory Rate Blood Pressure Pulse Oximetry 96 Oxygen Delivery Room Air 02/05/22 13:44 Temperature 97.4 F L Pulse Rate 93 Respiratory Rate 19 Blood Pressure 119/72 Pulse Oximetry 91 Oxygen Delivery Intake/Output Intake/Output: Intake & Outp
[2022-02-05 19:17] VITALS: BP 142/64; PULSE 74; RESP 18; TEMP 36.2; O2SAT 91
[2022-02-06] VITALS (7 sets, daily range): BP systolic 130–162; BP diastolic 54–70; PULSE 52–93; RESP 16–20; TEMP 36.2–36.4; O2SAT 93–100; BMI 20.4
[2022-02-06] MEDS: OLANZapine 10 MG INJ VIAL 5 MG IM (01:59)
[2022-02-06] MEDS: AMPICILLIN SULB 3 GM/NS 100 ML 3 GM/100 ML VIAL IVPB ×2 (05:50→14:03)
[2022-02-06 05:57] LABS: Albumin Level 3.2 g/dL (3.5-5.1); Anion Gap 6 mmol/L (8-16); Blood Urea Nitrogen 16 mg/dL (9-20); Calcium 8.3 mg/dL (8.4-10.2); Carbon Dioxide 28 mmol/L (22-30); Chloride 104 mmol/L (98-107); Estimated CRCL calculation 43 ml/min; Estimated Glomerular Filt Rate > 60; Glucose 93 mg/dL (65-110); Phosphorus 2.2 mg/dL (2.5-4.5); Sodium 138 mmol/L (137-145)
[2022-02-06] MEDS: POTASSIUM/PHOSPHORUS/SODIUM 1.5 GM PACKET 1 PACKET PO (08:23)
[2022-02-06] MEDS: LORATADINE 10 MG TABLET PO (09:48)
[2022-02-06] MEDS: METOPROLOL TARTRATE 25 MG TABLET PO (09:48)
[2022-02-06] MEDS: PANTOPRAZOLE 40 MG TABLET PO (09:48)
[2022-02-06] MEDS: TAMSULOSIN HCL 0.4 MG CAPSULE PO (09:49)
[2022-02-06] MEDS: ASPIRIN 325 MG TABLET PO (09:51)
[2022-02-06] MEDS: GABAPENTIN 300 MG CAPSULE 600 MG PO (09:51)
[2022-02-06] MEDS: QUEtiapine FUMARATE 25 MG TABLET PO (09:51)
[2022-02-06] MEDS: CLOPIDOGREL BISULFATE 75 MG TABLET PO (09:51)
[2022-02-06] MEDS: ATORVASTATIN 40 MG TABLET PO (09:52)
[2022-02-06] MEDS: AMIODARONE HCL 100 MG TABLET PO (09:52)
--- NOTE | 2022-02-06 11:08 | PCPTNOTE ---
Attempted physical therapy evaluation, upon entering the room pt was sleeping restfully. Pts declined therapy at this time since he was calm and resting, as he was agitated and did not have a good night. Will continue to follow.
--- NOTE | 2022-02-06 14:01 | PCOTNOTE ---
Attempted to see pt. for occupational therapy evaluation. Per nursing, pt. has decided to transition to hospice. Confirmed with care coordination. Cancelling therapy services at this time.
--- NOTE | 2022-02-06 14:07 | PCPTNOTE ---
Pt going to transition to hospice care at this time. Therapy Orders discharged this date.
--- NOTE | 2022-02-06 17:24 | PM.IMPN ---
Progress Note: A&P Assessment and Plan (1) Sepsis: Code(s): A41.9 - Sepsis, unspecified organism Status: Acute Assessment and Plan: The patient meets sepsis criteria on admission with tachypnea, leukocytosis, fever in the setting of recurrent aspiration pneumonia. -White count was 13 -Chest x-ray shows acute left basilar airspace disease consistent with pneumonia. -Patient has known dysphagia and is an aspiration risk. -Was on oxygen but able to be weaned to room air -No fevers and WBC normal now -Continue Unasyn. (2) Aspiration pneumonia: Code(s): J69.0 - Pneumonitis due to inhalation of food and vomit Status: Acute Assessment and Plan: As above. Speech therapy in November showed that material into the airway below the vocal cords and there was no effort made to eject the material. Recommendation was non oral feeding at that time. Both patient and family refused G-tube at that time. Long discussion with family about options including hospice. Daughter (POA) wishes to proceed with hospice care. Hospice was in the room and family signed for hospice care. Need to determine if the assisted living facility can care for the patient given his agitation or if he needs mcc placement. He remains a modified code. (3) Benign prostatic hyperplasia with urinary retention: Code(s): N40.1 - Benign prostatic hyperplasia with lower urinary tract symptoms; R33.8 - Other retention of urine Status: Acute Assessment and Plan: Patient found to have urine retention. Hood catheter placed. Flomax started. Oxybutynin stopped. Hood out. Monitor for retention. (4) NORMA (acute kidney injury): Code(s): N17.9 - Acute kidney failure, unspecified Status: Acute Assessment and Plan: Cr 1.5 on admission. This could be related to ATN from his infection or dehydration from poor oral intake. Consider also postobstructive process. Repeat creatinine trending downward. (5) Dementia: Code(s): F03.90 - Unspecified dementia, unspecified severity, without behavioral disturbance, psychotic disturbance, mood disturbance, and anxiety Status: Acute Assessment and Plan: Patient somnolent probably related to being up at night and Zyprexa. He does take Seroquel for behavioral disorder. Advance Seroquel to Q12h to try to control symptoms at night. Continue to follow. (6) Thrombocytopenia: Code(s): D69.6 - Thrombocytopenia, unspecified Status: Acute Assessment and Plan: Platelet count low on admission but this appears to be chronic. Continue monitor. (7) Dysphagia: Onset Date: ~2019 Qualifiers: Dysphagia type: unspecified Qualified Code(s): R13.10 - Dysphagia, unspecified Code(s): R13.10 - Dysphagia, unspecified Status: Acute Assessment and Plan: As above. Subjective Date/time seen: 02/06/22 17:24 Interval history: 86yo male with dementia, dysphagia and DM here for fever and found to have PNA. Patient is extremely somnolent but arouses. He was given Zyprexa around 1:00 a.m. this morning for severe agitation. Hospice counselor is at bedside talking with family upon entering the room. Patient is unable to provide history. Review of Systems Review of Systems: ROS unobtainable: Yes unobtainable due to mental status Exam Narrative: AF 97.6 130/54 52 16 100% ra Gen - NARD Chest - coarse respirations CV - RRR S1/S2 Abd - Soft, NT/ND, Positive BS Ext - No pedal edema. Neuro - somnolent but arouses to sternal rub and begins to swing at the examiner Psych - unable to assess Skin - Warm and dry. Objective Data Vital Signs Vital Signs: Vital Signs - 24 hr 02/05/22 19:17 02/05/22 20:00 02/06/22 03:48 Temperature 97.1 F L 97.1 F L Pulse Rate 74 93 Respiratory Rate 18 20 Blood Pressure 142/64 H 162/70 H Pulse Oximetry 91 93 Oxygen Delivery Room Air Oxy
[2022-02-07 06:00] VITALS: BP 174/77; PULSE 80; RESP 18; TEMP 36.4; O2SAT 100
[2022-02-07] MEDS: GABAPENTIN 300 MG CAPSULE 600 MG PO (08:13)
[2022-02-07] MEDS: QUEtiapine FUMARATE 25 MG TABLET PO (08:13)
[2022-02-07] MEDS: CLOPIDOGREL BISULFATE 75 MG TABLET PO (08:14)
[2022-02-07] MEDS: AMIODARONE HCL 100 MG TABLET PO (08:14)
[2022-02-07] MEDS: ASPIRIN 325 MG TABLET PO (08:14)
[2022-02-07] MEDS: TAMSULOSIN HCL 0.4 MG CAPSULE PO (08:14)
[2022-02-07] MEDS: METOPROLOL TARTRATE 25 MG TABLET PO (08:14)
[2022-02-07] MEDS: PANTOPRAZOLE 40 MG TABLET PO (08:14)
--- NOTE | 2022-02-07 13:48 | PM.DS ---
DS: Admitting Diagnosis Discharge Date 02/07/22 Admitting Diagnosis Fever DS: Discharge Diagnosis Discharge Diagnosis (1) Sepsis: Code(s): A41.9 - Sepsis, unspecified organism Status: Acute (2) Aspiration pneumonia: Code(s): J69.0 - Pneumonitis due to inhalation of food and vomit Status: Acute (3) Benign prostatic hyperplasia with urinary retention: Code(s): N40.1 - Benign prostatic hyperplasia with lower urinary tract symptoms; R33.8 - Other retention of urine Status: Acute (4) NORMA (acute kidney injury): Code(s): N17.9 - Acute kidney failure, unspecified Status: Acute (5) Dementia: Code(s): F03.90 - Unspecified dementia, unspecified severity, without behavioral disturbance, psychotic disturbance, mood disturbance, and anxiety Status: Acute (6) Thrombocytopenia: Code(s): D69.6 - Thrombocytopenia, unspecified Status: Acute (7) Dysphagia: Onset Date: ~2019 Qualifiers: Dysphagia type: unspecified Qualified Code(s): R13.10 - Dysphagia, unspecified Code(s): R13.10 - Dysphagia, unspecified Status: Acute DS: Summary Hospital Course Reason for hospitalization: 86yo male with dementia, dysphagia and DM here for fever and found to have PNA. Please see H&P for details Hospital Course: The patient sent to the ED due to having fevers. He met sepsis criteria on admission with tachypnea, leukocytosis and fever due to recurrent aspiration pneumonia.?White count was 13K. Chest x-ray showed acute left basilar airspace disease consistent with pneumonia. Patient has known dysphagia and is an aspiration risk. Speech therapy in November showed that material went into the airway below the vocal cords and there was no effort made to eject the material.? Recommendation was non oral feeding at that time.? Both patient and family refused G-tube at that time.? Patient was started on Unasyn. Fevers resolved. WBC normalized. Patient was found to have urine retention and Hood catheter was placed and Flomax was started. He does have dementia with behavioral disturbance requiring his Seroquel to be increased. He also has NORMA with Cr 1.5 on admission.? This could be related to ATN from his infection or dehydration from poor oral intake.?Repeat creatinine trended downward. Long discussion with family about options including hospice.? Daughter (POA) wishes to proceed with hospice care.? Hospice was in the room and family signed for hospice care. Thye wished for the abx to be stopped which was done. Patient was able to be discharged to assisted living with hospice care. Status at Discharge Cognitive/behavioral status at discharge: stable Time Spent with Patient Time attestation: Total time spent providing and/or coordinating discharge services: 32 minutes Time spent: Greater than 30 minutes Exam Narrative: AF 976 174/77 80 18 100% 2L Gen - NARD Chest - clear to quiet respirations CV - RRR S1/S2 Abd - Soft, ND Ext - No pedal edema. Neuro - somnolent but arouses to voice Skin - Warm and dry. DS: Data Data Completed and Pending Labs on day of discharge: Preliminary micro results at discharge 02/03/22 22:13 Blood Culture - Preliminary Blood Discharge Plan Discharge Attending physician on discharge: Phillip Lizama Discharging Clinician: Phillip Lizama Anticipated Discharge Date/Time: 02/07/22 13:58 Patient Disposition: NH Alf/Asst Living Activity: as tolerated Diet: as tolerated Discharge Instructions: Hospice to follow Patient Instructions: Antibiotic Form, Clopidogrel (By mouth) Stand Alone Forms: General Discharge Information Follow-up/Referrals: Pascual Clemons MD [Primary Care Provider] - Other Discharge Medications: New quetiapine [Seroquel] 25 mg Tablet 25 mg PO Q12HR Qty: 60 0RF tamsulosin 0.4 mg Capsule 0.4 mg PO QAM Qty: 30 0RF Continu
[2022-02-07 14:14] VITALS: BP 164/77; PULSE 84; RESP 18; TEMP 36.4; O2SAT 97
[2022-02-07 15:20] LABS: EDCOVIDSCREEN Negative (Negative)
[2022-02-09 22:47] LABS: Legionella pneumophila Ag Ur Not Detected (Not Detected)
== END 2022-02-07 17:24 | DRG 178 ==
LOC: ANHED 22:19 → ANH2MED 02-04 00:02
PROVIDERS: Admitting Provider Internal Medicine; Emergency Provider Emergency Medicine; PCP Family Medicine; Visit Provider Internal Medicine
DX: J69.0 Pneumonitis due to inhalation of food and vomit (principal); F03.918 Unspecified dementia, unspecified severity, with other behavioral disturbance; N17.9 Acute kidney failure, unspecified; I50.42 Chronic combined systolic (congestive) and diastolic (congestive) heart failure; I11.0 Hypertensive heart disease with heart failure; I25.10 Atherosclerotic heart disease of native coronary artery without angina pectoris; I48.0 Paroxysmal atrial fibrillation; J92.0 Pleural plaque with presence of asbestos; D64.9 Anemia, unspecified; E11.40 Type 2 diabetes mellitus with diabetic neuropathy, unspecified; E78.5 Hyperlipidemia, unspecified; E11.51 Type 2 diabetes mellitus with diabetic peripheral angiopathy without gangrene; E11.621 Type 2 diabetes mellitus with foot ulcer; L97.529 Non-pressure chronic ulcer of other part of left foot with unspecified severity; D69.6 Thrombocytopenia, unspecified; K21.9 Gastro-esophageal reflux disease without esophagitis; N40.1 Benign prostatic hyperplasia with lower urinary tract symptoms; R33.8 Other retention of urine; M19.90 Unspecified osteoarthritis, unspecified site; R13.10 Dysphagia, unspecified; Z20.822 Contact with and (suspected) exposure to COVID-19; F41.9 Anxiety disorder, unspecified; F32.A Depression, unspecified; Z96.652 Presence of left artificial knee joint; Z51.5 Encounter for palliative care; Z85.46 Personal history of malignant neoplasm of prostate; Z86.73 Personal history of transient ischemic attack (TIA), and cerebral infarction without residual deficits; Z89.411 Acquired absence of right great toe; Z87.891 Personal history of nicotine dependence; Z95.1 Presence of aortocoronary bypass graft; Z79.82 Long term (current) use of aspirin; Z79.01 Long term (current) use of anticoagulants
CPT/HCPCS: 36415; 71045; 80048; 80053; 80069; 81001; 82948; 83735; 85025; 85055; 87040; 87426; 87449; 87637; 87899; 93005; 96361; 96365; 96366; 96367; 99285; A9270; C9803; G0378; J0295; J0692; J3370; J7030